=== PATIENT | female | born 1955 | race Caucasian/White ===

== ENCOUNTER 2021-10-30 15:42 | Outpatient (CLI) | payer OTHER, SELFPAY | END 2021-10-30 15:43 | disposition home or self-care (01) | PROVIDERS: PCP Internal Medicine; Visit Provider Internal Medicine | DX: E03.9 Hypothyroidism, unspecified (principal) | CPT/HCPCS: 84443 ==

== ENCOUNTER 2021-11-05 18:44 | Outpatient (CLI) | payer OTHER, SELFPAY ==
[2021-11-05 21:49] LABS: Chloride* 103 mmol/L (96-114); Sodium* 135 mmol/L (135-149)
[2021-11-05 21:50] LABS: Potassium* 4.2 mmol/L (3.6-5.1)
[2021-11-05 21:52] LABS: Carbon Dioxide* 24 mmol/L (20-32); Creatinine* 0.7 mg/dL (0.5-1.5); Estimated Glomerular Filt Rate 97 ml/min
[2021-11-05 21:53] LABS: Blood Urea Nitrogen* 13 mg/dL (7-30); Calcium* 9.8 mg/dL (8.4-10.6); Glucose* 101 mg/dL (60-115)
== END 2021-11-05 18:45 | disposition home or self-care (01) ==
LOC: KYNREF 18:44
PROVIDERS: PCP Internal Medicine; Visit Provider Nurse Practitioner Family
DX: Z51.81 Encounter for therapeutic drug level monitoring (principal)
CPT/HCPCS: 36415; 80048

== ENCOUNTER 2022-01-03 14:14 | Outpatient (CLI) | payer OTHER, SELFPAY ==
[2022-01-03 10:20] LABS: Free T4 Free Thyroxine* 1.02 ng/dL (0.70-1.85)
== END 2022-01-03 14:15 | disposition home or self-care (01) ==
PROVIDERS: PCP Internal Medicine; Visit Provider Internal Medicine
DX: E03.9 Hypothyroidism, unspecified (principal); E66.9 Obesity, unspecified; Z51.81 Encounter for therapeutic drug level monitoring
CPT/HCPCS: 84439; 84443

== ENCOUNTER 2022-08-13 09:10 | Outpatient (CLI) | payer OTHER, SELFPAY ==
--- NOTE | 2022-08-13 09:15 | CRLHL7_ITS ---
For Patients: As a result of the Cures Act, medical imaging exams and procedure reports are released immediately into your electronic medical record. You may view this report before your referring provider. If you have questions, please contact your health care provider. BILATERAL SCREENING MAMMOGRAM WITH COMPUTER-AIDED DETECTION AND TOMOSYNTHESIS TECHNIQUE: CC and MLO views were obtained. These mammographic images have been obtained using full-field digital technique. These mammographic images were interpreted with the benefit of computer-aided detection. Breast tomosynthesis was used in this interpretation. COMPARISON FILM: 07/23/21, 06/25/20, 03/04/19. FINDINGS: There are scattered areas of fibroglandular density. IMPRESSION: There is no radiographic evidence for malignancy. ASSESSMENT: BI-RADS Category 1: Negative RECOMMENDATION: Routine screening mammogram in 1 year. A lay language report of this examination will be provided to the patient. MARCO A PLATT M.D. Diagnostic Radiologist [email or web address] Transcribed: 08/13/2022, 1:[address]/Dictated by: Marco A Platt MD @ 08/13/2022 10:40:00 AM (Electronically Signed)
== END 2022-08-13 09:11 | disposition home or self-care (01) ==
PROVIDERS: PCP Internal Medicine; Visit Provider Internal Medicine
DX: Z12.31 Encounter for screening mammogram for malignant neoplasm of breast (principal)
CPT/HCPCS: 77063; 77067

== ENCOUNTER 2023-02-17 08:00 | Outpatient (CLI) | payer OTHER, SELFPAY ==
--- OUTSIDE RECORDS SUMMARY | 2023-02-23 12:59 | XMS_ITS | Encounter Summary ---
Author Name Unknown Organization [facility] Address [address] [place] [address] Care Team Providers Care Stake Driver Name Role Phone Elsewhere, Pcp Primary Care Provider Unavailabl e Reason for Visit * Reason Onset Date Comments Rx Prior Authorization 08/08/2022 Qsymia Encounter Details Date Type Department Care Team (Latest Contact Info) Description 08/08/2022 Clinical Communication Division of Endocrinology in [place], [place] [address] [place] [phone] Palma Talley P.A.-C. [address] [place] [phone] Rx Prior Authorization (Qsymia ) Social History Tobacco Use Types Packs/Day Years Used Date Smoking Tobacco: Never Smokeless Tobacco: Never Comments:one parent was a sm oker Alcohol Use Standard Drinks/Week Comments Yes 12 (1 standard drink = 0.6 oz pu re alcohol) Humiliation, Afraid, Rape, and Kick questionnair e Answer Date Recorded Within the last year, have y ou been afraid of your partner or ex-partner? No 06/21/2022 Within the last year, have y ou been humiliated or emotionally abused in other ways by your partner or ex-partner? No Within the last year, have y ou been kicked, hit, slapped, or otherwise physically hurt by your partner or ex-partner? No 06/21/2022 Within the last year, have y ou been raped or forced to have any kind of sexual activity by your partner or ex-partner? No 06/21/2022 Social Connection and Isolat ion Panel [NHANES] Answer Date Recorded In a typical week, how many times do you talk on the phone with family, friends, or neighbors? Never 06/21/2022 How often do you get togethe r with friends or relatives? Once a week 06/21/2022 How often do you attend chur ch or sikh services? More than 4 times per year 06/21/2022 Do you belong to any clubs o r organizations such as restoration groups, unions, fraternal or athletic groups, or school groups? Yes 06/21/2022 How often do you attend meet ings of the clubs or organizations you belong to? More than 4 times per year 06/21/2022 Are you , , di vorced, , never , or living with a partner? 06/21/2022 AUDIT-C Answer Date Recorded Q1: How often do you have a drink containing alcohol? 4 or more times a week 06/21/2022 Q2: How many drinks containi ng alcohol do you have on a typical day when you are drinking? 1 or 2 3 Q3: How often do you have si x or more drinks on one occasion? Never 06/21/2022 Overall Financial Resource Strain (CARDIA) Answe r Date Recorded How hard is it for you to pa y for the very basics like food, housing, medical care, and heating? Not hard at all 06/21/2022 [facility] ional [facility] - Occupational Stress Questionnaire Answer Date Recorded Do you feel stress - tense, restless, nervous, or anxious, or unable to sleep at night because your mind is troubled all the time - these days? Only a little 06/21/2022 Exercise Vital Sign Answer Date Recorde d On average, how many days pe r week do you engage in moderate to strenuous exercise (like a brisk walk)? 4 days 06/21/2022 On average, how many minutes do you engage in exercise at this level? 40 min 06/21/2022 Hunger Vital Sign Answer Date Recorded Within the past 12 months, y ou worried that your food would run out before you got the money to buy more. Never true 06/22/19 23 Within the past 12 months, t he food you bought just didn't last and you didn't have money to get more. Never true 06/21/2022 PRAPARE - Transportation Answer Date Re corded In the past 12 months, has l ack of transportation kept you from medical appointments or from getting medications? No 07/2022 In the past 12 months, has l ack of transportation kept you from meetings, work, or from getting things needed for daily living? No 06/21/2022 Housing Stability Vital Sign Answer Sherwin e Recorded In the last 12 months, was t here a time when you were not able to pay the mortgage or rent on time? No 06/21/2022 In the last 12 months, how many places have you lived? 1 06/21/2022 In the last 12 months, was t here a time when you did not have a steady place to sleep or slept in a penitentiary (including now)? No 06/21/2022 Nutrition Answer Date Recorded Nutrition: EVOO Fat Source Yes 06/21 On average, how many serving s of fruits and vegetables do you eat per day (serving size is equal to 1 cup or approximately the size of a tennis ball)? 4-5 06/21/2022 Dental Answer Date Recorded Dental: Regular Dentist Yes 08/24/19 Employment Answer Date Recorded Employment status Employed and actively working without restrictions 06/21/2022 Education Answer Date Recorded What is the highest level of school you have completed or the highest degree you have received? Doctorate 08/23/2020 Sex and Gender Information Value Date Recorded Sex Assigned at Female 01/01/2021 8:40 AM WRAP KNITTING MACHINE OPERATOR Gender Identity Female 01/01/2021 8:40 AM WRAP KNITTING MACHINE OPERATOR Sexual Orientation Straight 01/01/2021 8: 40 AM WRAP KNITTING MACHINE OPERATOR documented as of this encounter Plan of Treatment Upcoming Encounters Date Type Department Care Team (Late st Contact Info) Description 03/05/2023 11:00 AM WRAP KNITTING MACHINE OPERATOR Office Visit Division of Endocrinology in [place], [place] [address] [place] [phone] Cooper Kessler APRN, C.N.P., D.N.P. [address] [place] [address] documented as of this encounter Visit Diagnoses Not on filedocumented in this encounter Care Teams Stake Driver Relationship Specialty Start Date End Date Elsewhere, Pcp PCP - General Internal Medicine 04/16/21 documented as of this encounter
--- OUTSIDE RECORDS SUMMARY | 2023-02-23 12:59 | XMS_ITS | Encounter Summary ---
Author Name Unknown Organization [facility] Address [address] [place] [address] Care Team Providers Care Biomedical Photographer Name Role Phone Elsewhere, Pcp Primary Care Provider Unavailabl e Reason for Referral * Outpatient (Routine) - Authorized Specialty Diagnoses / Procedures Referred By Abhilash lyle Referred To Contact Endocrinology Diagnoses Obesity Body Mass Index 30-39.9 Adult Krystal Fox APRN, C.N.P. [address] [place] [phone] [facility] Referral ID Status Reason Start Date Expiration Date V isits Requested Visits Authorized [id number] Authorized 12/02/2022 12/01/2025 1 1 Reason for Visit * Outpatient (Routine) - Closed Specialty Diagnoses / Procedures Referred By Abhilash lyle Referred To Contact Endocrinology Diagnoses Obesity Body Mass Index 30-39.9 Adult Hypothyroidism Primary Palma Talley P.A.-C. [address] [place] [phone] [facility] Referral ID Status Reason Start Date Expiration Date Visits Re quested Visits Authorized [id number] Closed 06/25/2022 06/24/2025 1 1 Encounter Details Date Type Department Care Team (Late st Contact Info) Description 12/02/2022 3:00 PM CDT Telemedicine Division of Endocrinology in [place], [place] [address] [place] [phone] Krystal Fox APRN, C.N.P. [address] [place] [phone] Obesity Body Mass Index 30-39.9 Adult (Primary Dx); Hypothyroidism Primary Social History Tobacco Use Types Packs/Day Years [...] 06/21/2022 How often do you attend chur or latter-day services? More than 4 times per year 06/21/2022 Do you belong to any clubs o r organizations such as samaritan groups, unions, fraternal or athletic groups, or [...] and heating? Not hard at all 06/21/2022 [facility] of Occupat ional Health - Occupational Stress [...] place to sleep or slept in a chcf (including now)? No 06/21/2022 Nutrition Answer Date [...] Sex Assigned at Female 01/01/2021 8:40 AM PMO BUSINESS ANALYST Gender Identity Female 01/01/2021 8:40 AM PMO BUSINESS ANALYST Sexual Orientation Straight 01/01/2021 8: 40 AM PMO BUSINESS ANALYST documented as of this encounter Last Filed Vital Signs Vital Sign Reading Time Taken Comments Blood Pressure - - Pulse - - Temperature - - Respiratory Rate - - Oxygen Saturation - - Inhaled Oxygen Concentration - - Weight 86.5 kg (190 lb 11.2 oz) 12/02/2022 3:05 PM CDT self reported Height - - Body Mass Index 30.21 04/01/2022 2:04 PM PMO BUSINESS ANALYST documented in this encounter Progress Notes * Krystal Fox, UNA, C.N.P. - 12/02/2022 3:00 PM CDT SUBJECTIVE Video visit CHIEF COMPLAINT Weight management follow-up visit HISTORY OF PRESENT ILLNESS Kanika returns today for a follow-up appointment for ongoing evaluation and assistance with weightloss while continuing to pursue efforts at weight loss. She was last seen by DANI Cosme, on 06/25/2022. 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 Her snack consists of either an apple or a handful of almonds. She continues to experience appetite suppression with the Qsymia. Current activity: She was active with walking and gardening over this summer. She had set a goal to restart lap swimming, but due to a busy schedule this fall has not yet started this. Recent weight trend is as follows: Most recent weight: 12/02/22 86.5 kg 06/25/22 86.7 kg 04/01/22 88.4 kg 01/06/22 90.4 kg 10/07/21 90.2 kg Obesity related comorbidities include: arthritis. Current medications for weight management: Qsymia 7.5-46 mg Weight loss medication side effects: Dry mouth which she has been managing with Biotene Pertinent review of systems otherwise grossly negative. The following portions of the patient's history were reviewed and updated as appropriate: visit questionnaire, allergies, current medications, family history, medical history, social history, surgical history, and problem list. OBJECTIVE Wt 86.5 kg Comment: self reported BMI 30.21 kg/m?? Physical exam: General: Pleasant, cooperative and in no acute distress. Mental: Alert, oriented to person, place, and time. Displays appropriate mood and affect. ASSESSMENT / PLAN #1 Class 1 obesity, BMI 30.21 Since initiation of Qsymia in August 2020, she has been successful with a 63 lb weight loss. She is currently at a weight loss plateau, but feels as though her eating has not changed and she continues to experience appetite suppression with a Qsymia. She plans on laps swimming for exercise as she enjoys this and has done this previously. She is hoping to lose an additional 20 lb if possible. She would like to stay at current doses Qsymia, but consideration could be given to increasing to the nextdose up if she starts to struggle with hunger while increasing exercise. The Qsymia prescription is up-to-date. I recommend follow-up in 3 months to assess weight loss progress. This will be an in person visit. Visit conducted via real-time audio/video technology by Krystal Fox APRN, C.N.P. in [facility] to the patient in Patient's Home. I personally spent a total of 20 minutes performing a review of the record and/or discussing with the patient/caregiver as described above. documented in this encounter Plan of Treatment Upcoming Encounters Date Type Department Care Team (Late st Contact Info) Description 03/05/2023 11:00 AM PMO BUSINESS ANALYST Office Visit Division of Endocrinology in [place], [place] [address] [place] [phone] Cooper Kessler APRN, C.N.P., D.N.P. [address] [place] [phone] Scheduled Referrals Name Type Priority Associated Diagnoses Order Schedule Endocrinology office visit (clinic) Outpatient Referral Routine Obesity Body Mass Index 30-39.9 Adult Expected: 03/02/2023 (Approximate), Expires: 03/04/2024 documented as of this encounter Visit Diagnoses Diagnosis Obesity Body Mass Index 30-39.9 Adult- Primary Hypothyroidism Primary documented in this encounter Care Teams Biomedical Photographer Relationship Specialty Start Date End Date Elsewhere, Pcp PCP - General Internal Medicine 04/16/21 documented as of this encounter
--- OUTSIDE RECORDS SUMMARY | 2023-02-23 12:59 | XMS_ITS | Encounter Summary ---
Author Name Unknown Organization [facility] Address [address] [place] [address] Care Team Providers Care Ice Cream Dipper Name Role Phone Elsewhere, Pcp Primary Care Provider Unavailabl e Encounter Details Date Type Department Care Team (Latest Contact Info) Description 06/24/2022 3:00 PM CDT Clinical Communication Virtual Review in [place], [place] [address] [place] [address] Social History Tobacco Use Types Packs/Day Years Used Date Smoking Tobacco: Never Smokeless Tobacco: Never Tobacco Cessation:Counseling Given: Not Answered Comments:one parent was a smoker Alcohol Use Standard Drinks/Week Comments Yes 12 [...] week 06/21/2022 How often do you attend [facility] or adventist services? More than 4 times per year 06/21/2022 Do you belong to any clubs o r organizations such as christian groups, unions, fraternal or athletic groups, or [...] and heating? Not hard at all 06/21/2022 [facility] of Occupat ional Health - Occupational Stress [...] place to sleep or slept in a group home (including now)? No 06/21/2022 Nutrition Answer Date [...] Sex Assigned at Female 01/01/2021 8:40 AM FUR BUYER Gender Identity Female 01/01/2021 8:40 AM FUR BUYER Sexual Orientation Straight 01/01/2021 8: 40 AM FUR BUYER documented as of this encounter Plan of Treatment Upcoming Encounters Date Type Department Care Team (Late st Contact Info) Description 03/05/2023 11:00 AM FUR BUYER Office Visit Division of Endocrinology in [place], [place] 200 [place] [phone] Cooper Kessler APRN, C.N.P., D.N.P. [address] [place] [phone] documented as of this encounter Visit Diagnoses Not on filedocumented in this encounter Care Teams Ice Cream Dipper Relationship Specialty Start Date End Date Elsewhere, Pcp PCP - General Internal Medicine 04/16/21 documented as of this encounter
--- OUTSIDE RECORDS SUMMARY | 2023-02-23 12:59 | XMS_ITS | Encounter Summary ---
Author Name Unknown Organization [facility] Address [address] [place] [address] Care Team Providers Care Pastry Baker Name Role Phone Elsewhere, Pcp Primary Care Provider Unavailabl e Reason for Referral * Outpatient (Routine) - Closed Specialty Diagnoses / Procedures Referred By Abhilash lyle Referred To Contact Endocrinology Diagnoses Obesity Body Mass Index 30-39.9 Adult Hypothyroidism Primary Palma Talley P.A.-C. [address] [place] [phone] [facility] Referral ID Status Reason Start Date Expiration Date Visits Re quested Visits Authorized [id number] Closed 04/01/2022 03/31/2025 1 1 R HELPER Reason for Visit * Outpatient (Routine) - Closed Specialty Diagnoses / Procedures Referred By Abhilash lyle Referred To Contact Endocrinology Palma Talley P.A.-C. [address] [place] [phone] [facility] Referral ID Status Reason Start Date Expiration Date Visits Re quested Visits Authorized [id number] Closed 01/06/2022 01/05/2025 1 1 Encounter Details Date Type Department Care Team (Late st Contact Info) Description 04/01/2022 2:00 PM TUBER HELPER Office Visit Division of Endocrinology in [place], [place] [address] [place] [phone] Palma Talley P.A.-C. [address] [place] [phone] Obesity Body Mass Index 30-39.9 Adult (Primary [...] afraid of your partner or ex-partner? No 10/04/2021 Within the last year, have y ou been humiliated or emotionally abused in other ways by your partner or ex-partner? No Within the last year, have y ou been kicked, hit, slapped, or otherwise physically hurt by your partner or ex-partner? No 10/04/2021 Within the last year, have y ou been raped or forced to have any kind of sexual activity by your partner or ex-partner? No 10/04/2021 Social Connection and Isolat ion Panel [NHANES] Answer Date Recorded In a typical week, how many times do you talk on the phone with family, friends, or neighbors? Never 10/04/2021 How often do you get togethe r with friends or relatives? Once a week 10/04/2021 How often do you attend chur ch or mosque services? More than 4 times per year 10/04/2021 Do you belong to any clubs o r organizations such as quaker groups, unions, fraternal or athletic groups, or school groups? Yes 10/04/2021 How often do you attend meet ings of the clubs or organizations you belong to? More than 4 times per year 10/04/2021 Are you , , di vorced, , never , or living with a partner? 10/04/2021 AUDIT-C Answer Date Recorded Q1: How often do you have a drink containing alcohol? 4 or more times a week 10/04/2021 Q2: How many drinks containi ng alcohol do you have on a typical day when you are drinking? 1 or 2 2 Q3: How often do you have si x or more drinks on one occasion? Never 10/04/2021 Overall Financial Resource Strain (CARDIA) Answe r Date Recorded How hard is it for you to pa y for the very basics like food, housing, medical care, and heating? Not hard at all 10/04/2021 [facility]at ional [facility] - Occupational Stress Questionnaire Answer Date Recorded Do you feel stress - tense, restless, nervous, or anxious, or unable to sleep at night because your mind is troubled all the time - these days? Only a little 10/04/2021 Exercise Vital Sign Answer Date Recorde d On average, how many days pe r week do you engage in moderate to strenuous exercise (like a brisk walk)? 7 days 10/04/2021 On average, how many minutes do you engage in exercise at this level? 40 min 10/04/2021 Hunger Vital Sign Answer Date Recorded Within the past 12 months, y ou worried that your food would run out before you got the money to buy more. Never true 10/05/19 22 Within the past 12 months, t he food you bought just didn't last and you didn't have money to get more. Never true 10/04/2021 PRAPARE - Transportation Answer Date Re corded In the past 12 months, has l ack of transportation kept you from medical appointments or from getting medications? No 09/16 In the past 12 months, has l ack of transportation kept you from meetings, work, or from getting things needed for daily living? No 10/04/2021 Housing Stability Vital Sign Answer Sherwin e Recorded In the last 12 months, was t here a time when you were not able to pay the mortgage or rent on time? No 10/04/2021 In the last 12 months, how many places have you lived? 1 10/04/2021 In the last 12 months, was t here a time when you did not have a steady place to sleep or slept in a jail (including now)? No 10/04/2021 Nutrition Answer Date Recorded Nutrition: EVOO Fat Source Yes 10/04 On average, how many serving s of fruits and vegetables do you eat per day (serving size is equal to 1 cup or approximately the size of a tennis ball)? 4-5 10/04/2021 Dental Answer Date Recorded Dental: Regular Dentist Yes 08/24/19 21 Employment Answer Date Recorded Employment status Employed and actively working without restrictions 10/04/2021 Education Answer Date Recorded What is the highest level of school you have completed or the highest degree you have received? Doctorate 08/23/2020 Sex and Gender Information Value Date Recorded Sex Assigned at Female 01/01/2021 8:40 AM TUBER HELPER Gender Identity Female 01/01/2021 8:40 AM TUBER HELPER Sexual Orientation Straight 01/01/2021 8: 40 AM TUBER HELPER documented as of this encounter Last Filed Vital Signs Vital Sign Reading Time Taken Comments Blood Pressure 131/83 04/01/2022 2:04 PM TUBER HELPER Pulse 74 04/01/2022 2:04 PM TUBER HELPER Temperature - - Respiratory Rate - - Oxygen Saturation - - Inhaled Oxygen Concentration - - Weight 88.4 kg (194 lb 14.2 oz) 04/01/2022 2:04 PM TUBER HELPER Height 169.2 cm (5' 6.61) 04/01/2022 2:04 PM CS T Body Mass Index 30.88 04/01/2022 2:04 PM TUBER HELPER documented in this encounter Progress Notes * Palma Talley P.A.-C. - 04/01/2022 2:00 PM CST SUBJECTIVE History of present illness: Kanika [facility] to [facility] for a follow-up appointment for ongoing evaluation and assistance with weight loss while continuing to pursue efforts at weight loss. She continues to do well with appetite control and calorie restriction. She notes that she had better control over the holidays. She was hopeful that she would loose more, but on review her weight loss is within expected limits for the interval. She does not report the heart fluttering in the interval. Recent weight trend is as follows: Most recent weight: 04/01/22 88.4 kg 01/06/22 90.4 kg 10/07/21 90.2 kg 04/16/21 96.2 kg 01/08/21 104 kg Obesity related comorbidities include prediabetes (resolved), osteoarthritis . Current medications for weight management: Qsymia 7.5-46 mg Previous medications used for weight management: none Medication adverse effects: Dry mouth Positive effects of the medication include: Good appetite supression; allows her to address portion control, or snacking Current physical activity: Walking Pertinent review of systems otherwise grossly negative. The following portions of the patient's history were reviewed and updated as appropriate: visit questionnaire, allergies, current medications, family history, medical history, social history, surgical history, and problem list. OBJECTIVE VITAL SIGNS Vitals: 04/01/22 1404 BP: 131/83 Pulse: 74 ASSESSMENT / PLAN #1 Obesity Body Mass Index 30-39.9 Adult #2 Hypothyroidism Primary Other orders - Endocrinology office visit (clinic) - Endocrinology office visit (clinic); Future; Expected date: 06/29/2022 Medication management: Continue Qsymia 7.5-46 mg Goals going forward: Continue to increase physical activity now that she is feeling better. Follow up: Patient to follow up in 3 months with myself. Weight Loss Medication Management Guidelines: For patients taking medications for weight loss, if the patient cannot tolerate the medication due to side effects including gastrointestinal, mood, or other side effects, they can stop the medication. If the patient would like to start a new medication, restart an old medication, or change to a different medication, please schedule the patient for first available follow up appointment, unless noted in the plan that the patient is OK to start a medication at this time. The patient can otherwise wait until their regularly scheduled follow up appointment. For issues with cost of weight loss medications, patients need to look at the contact lens flashing puncher's website for decreased copayment coupons, check with their insurance company to check coverage, and check different pharmacies for dominguez comparison prior to a new prescription. Weight loss medications are often not covered by insurance companies. Injectable medications like GLP1 agonists are being used on-label and off-label for weight management. If the patient gets a prescription for one of these medications and is later not covered by insurance, they again need to check with their insurance company to find out which medication in this class is covered, if any, prior to prescribing the next option. The patient can also ask their insurance company and their pharmacy for cost estimates to see if that cost would be acceptable to them. Current costs of injectable weight loss medications could range anywhere from $0 to $2000 per month. If patient requests refills of medications, please check if refills have already been ordered. R HELPER documented in this encounter Plan of Treatment Upcoming Encounters Date Type Department Care Team (Late st Contact Info) Description 03/05/2023 11:00 AM TUBER HELPER Office Visit Division of Endocrinology in [place], [place] [address] [place] [phone] Cooper Kessler APRN, C.N.P., D.N.P. [address] [place] [phone] Scheduled Referrals Name Type Priority Associated Diagnoses Order Schedule Endocrinology office visit (clinic) Outpatient Referral Routine Obesity Body Mass Index 30-39.9 Adult Hypothyroidism Primary Expected: 06/29/2022 (Approximate), Expires: 06/30/2023 documented as of this encounter Visit Diagnoses Diagnosis Obesity Body Mass Index 30-39.9 Adult- Primary Hypothyroidism Primary documented in this encounter Care Teams Pastry Baker Relationship Specialty Start Date End Date Elsewhere, Pcp PCP - General Internal Medicine 04/16/21 documented as of this encounter
--- OUTSIDE RECORDS SUMMARY | 2023-02-23 12:59 | XMS_ITS | Encounter Summary ---
Author Name Unknown Organization [facility] Address [address] [place] [address] Care Team Providers Care Marketing Professor Name Role Phone Elsewhere, Pcp Primary Care Provider Unavailabl e Reason for Visit * Reason Onset Date Comments Pre-visit Intake 03/31/2022 Encounter Details Date Type Department Care Team (Latest Contact Info) Description 03/31/2022 4:30 PM BOAT HOIST OPERATOR Clinical Communication Virtual Review in [place], [place] [address] [place], [place] [phone] Pre-visit Intake Social History Tobacco Use Types Packs/Day Years [...] often do you attend chur ch or judaism services? More than 4 times per year 10/04/2021 Do you belong to any clubs o r organizations such as amish groups, unions, fraternal or athletic groups, or [...] and heating? Not hard at all 10/04/2021 [facility] Occupat ional Health - Occupational [...] place to sleep or slept in a alf (including now)? No 10/04/2021 Nutrition Answer Date [...] Sex Assigned at Female 01/01/2021 8:40 AM BOAT HOIST OPERATOR Gender Identity Female 01/01/2021 8:40 AM BOAT HOIST OPERATOR Sexual Orientation Straight 01/01/2021 8: 40 AM BOAT HOIST OPERATOR documented as of this encounter Plan of Treatment Upcoming Encounters Date Type Department Care Team (Late st Contact Info) Description 03/05/2023 11:00 AM BOAT HOIST OPERATOR Office Visit Division of Endocrinology in [place], [place] [address] [place] [phone] Cooper Kessler APRN, C.N.P., D.N.P. [address] [place] [phone] documented as of this encounter Visit Diagnoses Not on filedocumented in this encounter Care Teams Marketing Professor Relationship Specialty Start Date End Date Elsewhere, Pcp PCP - General Internal Medicine 04/16/21 documented as of this encounter
--- OUTSIDE RECORDS SUMMARY | 2023-02-23 12:59 | XMS_ITS | Encounter Summary ---
Author Name Unknown Organization [facility] Address [address] [place] [address] Care Team Providers Care News Operations Manager Name Role Phone Elsewhere, Pcp Primary Care Provider Unavailabl e Encounter Details Date Type Department Care Team ([facility] st Contact Info) Description 08/07/2022 Orders Only Division of Endocrinology in [place], [place] [address] [place] [phone] Palma Talley P.A.-C. [address] [place] [phone] Social History Tobacco Use Types Packs/Day Years [...] How often do you attend chur or restorationist services? More than 4 times per year [...] and heating? Not hard at all 06/21/2022 [facility] [place] of Occupat ional Health - Occupational Stress [...] place to sleep or slept in a detention (including now)? No 06/21/2022 Nutrition Answer Date [...] Sex Assigned at Female 01/01/2021 8:40 AM TIN WHIZ MACHINE OPERATOR Gender Identity Female 01/01/2021 8:40 AM TIN WHIZ MACHINE OPERATOR Sexual Orientation Straight 01/01/2021 8: 40 AM TIN WHIZ MACHINE OPERATOR documented as of this encounter Plan of Treatment Upcoming Encounters Date Type Department Care Team (Late st Contact Info) Description 03/05/2023 11:00 AM TIN WHIZ MACHINE OPERATOR Office Visit Division of Endocrinology in [place], [place] [address] [place] [phone] Cooper Kessler APRN, C.N.P., D.N.P. [address] [place] [address] documented as of this encounter Visit Diagnoses Not on filedocumented in this encounter Care Teams News Operations Manager Relationship Specialty Start Date End Date Elsewhere, Pcp PCP - General Internal Medicine 04/16/21 documented as of this encounter
--- OUTSIDE RECORDS SUMMARY | 2023-02-23 12:59 | XMS_ITS | Clinical Summary ---
Author Name Unknown Organization [facility] Address [address] [place] [address] Care Team Providers Care Tar Heater Name Role Phone Elsewhere, Pcp Primary Care Provider Unavailabl e Source Comments Patient records contain information from all sites at [facility]. For routine questions regarding patient records, call [phone] during business hours, M-F 8:00 AM - 5:00 PM Central Time. Record requests for emergency care only can be directed to [phone] at any time.[facility] Allergies Active Allergy Reactions Criticality Noted Date Comments Cat Dander Other (see comments) 08/24/2020 Runny nose Grass Pollen Headache,Wheezing (R eselect Reaction) 08/24/2020 Mold Other (see comments) 08/24/2020 Runny nose Tree And Shrub Pollen Headache,Wheezing (Reselect Reaction) 08/24/2020 Medications Medication Sig Dispensed Refills Start Date End Date Status albuterol 90 mcg/actuation inhaler Inhale 2-4 puffs every 4 (four) hours as needed. 0 04/24/2010 Active cetirizine (ZyrTEC) 10 mg tablet Take 10 mg by mouth as needed. 0 10/27/2006 Active fluticasone propionate (FLONASE) 50 mcg/actuation nasal spray INHALE 2 SPRAYS INTO EACH NOSTRIL DAILY 0 09/08/2013 Active fluticasone propionate (FLOVENT HFA) 110 mcg/actuation inhaler Inhale 2 puffs 2 (two) times a day. 0 08/02/2012 Active levothyroxine (SYNTHROID, LEVOTHROID) 150 mcg tablet Take 150 mcg by mouth as directed. Take one tablet daily Thursday through Thursday and take 0.5 tablet Thursday and Thursday (PCP to recheck thyroid levels) 0 08/02/2012 Active montelukast (SINGULAIR) 10 mg tablet Take 10 mg by mouth at bedtime. 0 05/25/2020 Active phentermine-topirama te (Qsymia) 7.5-46 mg capsule, ER multiphase 24 hr ext release capsuleIndications:O besity Body Mass Index 30-39.9 Adult Take 1 capsule by mouth daily. 90 capsule 1 11/06/2022 Active Active Problems Problem Noted Date Diagnosed Date Obesity Body Mass Index 30-39.9 Adult 08/27/2020 Hypothyroidism Primary 08/27/2020 Osteoarthritis 08/27/2020 Asthma Mild Intermittent 08/27/2020 Asthma Encounters Date Type Department Care Team Description 12/30/2022 Clinical Communication Division of Endocrinology in [place], [place] [address] [place] [phone] Krystal Fox APRN, C.N.P. Follow-up Orders 12/02/2022 3:00 PM CDT Telemedicine Division of Endocrinology in [place], [place] [address] [place] [phone] Krystal Fox APRN, C.N.P. Obesity Body Mass Index 30-39.9 Adult (Primary Dx); Hypothyroidism Primary from Last 3 Months Family History Medical History Relation Name Comments Arthritis Brother Abdirahman Turner Hyperlipidemia Brother Abdirahman Turner Hypertension Brother Abdirahman Turner Prostate cancer Brother Abdirahman Turner diagnosed i n his 60s Arthritis Father Natan Turner Hyperlipidemia Father Natan Turner Hypertension Father Natan Turner Prostate cancer Father Natan Turner diagnosed in his 70s Stroke Father Natan Jourdanjohn Transient ischemic attack Father Natan Solimanjohn Diabetes Maternal Grandfather Karma Nelsontting Arthritis Maternal Grandmother Mayra Oetting Colon cancer Maternal Grandmother Mayra Oetting diagno sed in her 80s Diabetes Maternal Grandmother Mayra Oetting Obesity Maternal Grandmother Mayra Oetting Colon polyps Mother Florina Huener Hyperlipidemia Mother Florina Huener Hypertension Mother Florina Hujohn Breast cancer Mother's Sister 1 Turner phelps agnosed in her 80s Breast cancer Mother's Sister 2 Dayana Medeiros diagnose d in her 50s Diabetes Paternal Grandfather Paxton Huener Obesity Paternal Grandfather Paxton Turner Arthritis Sister Terri Antonio Breast cancer Sister Terri Antonio diagnosis & lumpectomy 2020 Colon polyps Sister Terri Antonio Hyperlipidemia Sister Terri Antonio Hypertension Sister Terri Antonio Thyroid disease Sister Terri Antonio Hypothyroi dism Relation Name Status Comments Brother Abdirahman Turner Father Natan uTrner Maternal Grandfather Karma Turpin Maternal Grandmother Mayra Turpin Mother Florina Turner Mother's Sister 1 Turner Arshad Mother's Sister 2 Dayana Medeiros Paternal Grandfather Paxton Turner Sister Terri Antonio Social History Tobacco Use Types Packs/Day Years [...] often do you attend chur ch or advent services? More than 4 times per year 06/21/2022 Do you belong to any clubs o r organizations such as worship groups, unions, fraternal or athletic groups, or [...] and heating? Not hard at all 06/21/2022 [facility] Occupat ional Health - Occupational Stress [...] place to sleep or slept in a fpc (including now)? No 06/21/2022 Nutrition Answer Date [...] Sex Assigned at Female 01/01/2021 8:40 AM COMMUNITY AIDE Gender Identity Female 01/01/2021 8:40 AM COMMUNITY AIDE Sexual Orientation Straight 01/01/2021 8: 40 AM COMMUNITY AIDE Last Filed Vital Signs Vital Sign Reading Time Taken Comments Blood Pressure 131/83 04/01/2022 2:04 PM COMMUNITY AIDE Pulse 74 04/01/2022 2:04 PM COMMUNITY AIDE Temperature - - Respiratory Rate - - Oxygen Saturation - - Inhaled Oxygen Concentration - - Weight 86.5 kg (190 lb 11.2 oz) 12/02/2022 3:05 PM CDT self reported Height 169.2 cm (5' 6.61) 04/01/2022 2 :04 PM COMMUNITY AIDE Body Mass Index 30.21 04/01/2022 2:04 PM COMMUNITY AIDE Plan of Treatment Upcoming Encounters Date Type Department Care Team (Late st Contact Info) Description 03/05/2023 11:00 AM COMMUNITY AIDE Office Visit Division of Endocrinology in [place], [place] [address] [place] [address] Cooper Kessler APRN, C.N.P., D.N.P. 200 [place] [phone] Health Maintenance Due Date Last Done Comments Bone Density Scan (Osteoporo sis Screen) 1957 CT Colonography 1957 Cologuard 1957 Colonoscopy 1957 Colorectal Cancer Screening 1957 FIT 1957 Fasting Glucose for Diabetes Screening 1957 Hepatitis C Screening 1955 Mammogram 1957 Thyroid Stimulating Hormone (TSH) test for thyroid function 1957 Cervical Cancer Screening 02/01/2021 02/01/2018 Depression Screening (Annual PHQ-2) 02/16/2023 Fall Risk Screen (Annual) 02/16/2023 DTaP,Tdap,and Td Vaccines (3 - Td or Tdap) 02/19/2031 02/19/2021, 07/30/2010, 12/23/2002 Zoster Vaccines Completed 08/21/2018, 05/13/2018 Influenza Vaccine Completed 01/29/2023, , 12/27/2020, Additional history exists COVID-19 Vaccine Completed 02/04/2023, , 01/17/2022, Additional history exists Pneumococcal vaccine (65+ years) Completed 02/13/20, 01/05/2018 Medical Devices Implanted Type Area String Studies Director Device Identifier Shelf Expiration Date Model / Serial / Lot Hardware E.G. Pins/Screws/Ro ds Hardware e.g. pins/screws/ rods Bilatera l: Foot Description:Hardware Knee Implant-06/17/19 Implanted:05/0 02/2017 (Quantity not on file) Knee Implant Left: Knee Ocular (Eye) Implant Ocular (Eye) Implant Bilatera l: Eye Description:Completed 1 week apart - February 2021 Care Teams Tar Heater Relationship Specialty Start Date End Date Elsewhere, Pcp PCP - General Internal Medicine 04/16/21
--- OUTSIDE RECORDS SUMMARY | 2023-02-23 12:59 | XMS_ITS | Encounter Summary ---
Author Name Unknown Organization [facility] Address [address] [place] [address] Care Team Providers Care Piercer Name Role Phone Elsewhere, Pcp Primary Care Provider Unavailabl e Reason for Referral * Outpatient (Routine) - Closed Specialty Diagnoses / Procedures Referred By Abhilash lyle Referred To Contact Endocrinology Diagnoses Obesity Body Mass Index 30-39.9 Adult Hypothyroidism Primary Palma Talley P.A.-C. [address] [place] [phone] [facility] Referral ID Status Reason Start Date Expiration Date Visits Re quested Visits Authorized [id number] Closed 06/25/2022 06/24/2025 1 1 Reason for Visit * Outpatient (Routine) - Closed Specialty Diagnoses / Procedures Referred By Abhilash lyle Referred To Contact Endocrinology Diagnoses Obesity Body Mass Index 30-39.9 Adult Hypothyroidism Primary Palma Talley P.A.-C. [address] [place] [phone] [facility] Referral ID Status Reason Start Date Expiration Date Visits Re quested Visits Authorized [id number] Closed 04/01/2022 03/31/2025 1 1 Encounter Details Date Type Department Care Team ([facility] st Contact Info) Description 06/25/2022 2:00 PM CDT Telemedicine Division of Endocrinology in [place], [place] [address] [place] [phone] Palma Talley P.A.-C. [address] [place] [phone] Obesity Body Mass Index 30-39.9 Adult; Hypothyroidism Primary Social History Tobacco Use Types Packs/Day Years Used Date Smoking Tobacco: Never Smokeless Tobacco: Never Comments:one parent was a sm juliana Alcohol Use Standard Drinks/Week Comments Yes 12 [...] often do you attend chur ch or mormon services? More than 4 times per year 06/21/2022 Do you belong to any clubs o r organizations such as baptism groups, unions, fraternal or athletic groups, or [...] and heating? Not hard at all 06/21/2022 [facility] [place] of Occupat ional Health - Occupational Stress [...] place to sleep or slept in a correction (including now)? No 06/21/2022 Nutrition Answer Date Recorded Nutrition: EVOO Fat Source Yes 06/21 On average, how many serving s of fruits and vegetables do you eat per day (serving size is equal to 1 cup or approximately the size of a tennis ball)? 4-5 06/21/2022 Dental Answer Date Recorded Dental: Regular Dentist Yes 07/08/20 21 Employment Answer Date Recorded Employment status Employed and actively working without restrictions 06/21/2022 Education Answer Date Recorded What is the highest level of school you have completed or the highest degree you have received? Doctorate 08/23/2020 Sex and Gender Information Value Date Recorded Sex Assigned at Female 01/01/2021 8:40 AM CHECKOUT OPERATOR Gender Identity Female 01/01/2021 8:40 AM CHECKOUT OPERATOR Sexual Orientation Straight 01/01/2021 8: 40 AM CHECKOUT OPERATOR documented as of this encounter Last Filed Vital Signs Vital Sign Reading Time Taken Comments Blood Pressure - - Pulse - - Temperature - - Respiratory Rate - - Oxygen Saturation - - Inhaled Oxygen Concentration - - Weight 86.7 kg (191 lb 1.6 oz) 06/25/2022 2:26 P M CDT Height - - Body Mass Index 30.28 04/01/2022 2:04 PM CHECKOUT OPERATOR documented in this encounter Progress Notes * Palma Talley P.A.-C. - 06/25/2022 2:00 PM CDT SUBJECTIVE History of present illness: Kanika [facility] for a follow-up appointment for ongoing evaluation and assistance with weight loss while continuing to pursue efforts at weight loss. Today's visit was completed with audiovisual equipment virtually from provider's office to patient's home due to the COVID 19 pandemic. Patient consented to this service. Losing weight slowly. Has lot's of events and has been eating off diet lately but hasn't felt that she was going without. Hasn't been able to start swimming yet because of scheduling. The kicking motion can cause issues with her ankle. Has been walking as well! Still has a goal of losing about 20 lbs. Using biotene for dry mouth. Recent weight trend is as follows: Most recent weight: 06/25/22 86.7 kg 04/01/22 88.4 kg 01/06/22 90.4 kg 10/07/21 90.2 kg 04/16/21 96.2 kg Obesity related comorbidities include arthritis. Current medications for weight management: Qsymia 7.5-46 mg Pertinent review of systems otherwise grossly negative. The following portions of the patient's history were reviewed and updated as appropriate: visit questionnaire, allergies, current medications, family history, medical history, social history, surgical history, and problem list. OBJECTIVE VITAL SIGNS There were no vitals filed for this visit. General: well appearing female in no acute distress ASSESSMENT / PLAN #1 Obesity Body Mass Index 30-39.9 Adult #2 Hypothyroidism Primary Other orders - Endocrinology office visit (clinic) - Endocrinology office visit (clinic); Future; Expected date: 09/25/2022 Medication management: Continue on current dose of Qsymia and she will increase her exercise. Follow up: Patient to follow up in 3 months with myself or a bariatric nutrition [place]. Weight Loss Medication Management Guidelines: For patients [...] medications, patients need to look at the application systems engineer's website for decreased copayment coupons, check with [...] check if refills have already been ordered. documented in this encounter Plan of Treatment Upcoming Encounters Date Type Department Care Team (Late st Contact Info) Description 03/05/2023 11:00 AM CHECKOUT OPERATOR Office Visit Division of Endocrinology in [place], [place] [address] [place] [address] Cooper Kessler APRN, C.N.P., D.N.P. [address] [place] [address] Scheduled Referrals Name Type Priority Associated Diagnoses Order Schedule Endocrinology office visit (clinic) Outpatient Referral Routine Obesity Body Mass Index 30-39.9 Adult Hypothyroidism Primary Expected: 09/25/2022 (Approximate), Expires: 09/26/2023 documented as of this encounter Visit Diagnoses Diagnosis Obesity Body Mass Index 30-39.9 Adult Hypothyroidism Primary documented in this encounter Care Teams Piercer Relationship Specialty Start Date End Date Elsewhere, Pcp PCP - General Internal Medicine 04/16/21 documented as of this encounter
--- OUTSIDE RECORDS SUMMARY | 2023-02-23 12:59 | XMS_ITS | Encounter Summary ---
Author Name Unknown Organization [facility] Address [address] [place] [address] Care Team Providers Care Custom Marine Canvas Fabricator Name Role Phone Elsewhere, Pcp Primary Care Provider Unavailabl e Encounter Details Date Type Department Care Team (Latest Contact Info) Description 06/17/2022 3:00 PM CDT Clinical Communication Virtual Review in [place], [place] [address] [place] [address] Canceled (Patient: Request) Social History Tobacco Use Types Packs/Day Years [...] week 06/21/2022 How often do you attend [facility] or shinto services? More than 4 times per year 06/21/2022 Do you belong to any clubs o r organizations such as oriental orthodox groups, unions, fraternal or athletic groups, or [...] and heating? Not hard at all 06/21/2022 [facility] of Occupat ional Health - Occupational [...] place to sleep or slept in a long term (including now)? No 06/21/2022 Nutrition Answer Date [...] Sex Assigned at Female 01/01/2021 8:40 AM MANAGER INSTALLATION Gender Identity Female 01/01/2021 8:40 AM MANAGER INSTALLATION Sexual Orientation Straight 01/01/2021 8: 40 AM MANAGER INSTALLATION documented as of this encounter Plan of Treatment Upcoming Encounters Date Type Department Care Team (Late st Contact Info) Description 03/05/2023 11:00 AM MANAGER INSTALLATION Office Visit Division of Endocrinology in [place], [place] [address] [place] [address] Cooper Kessler APRN, C.N.P., D.N.P. [address] [place] [address] documented as of this encounter Visit Diagnoses Not on filedocumented in this encounter Care Teams Custom Marine Canvas Fabricator Relationship Specialty Start Date End Date Elsewhere, Pcp PCP - General Internal Medicine 04/16/21 documented as of this encounter
--- OUTSIDE RECORDS SUMMARY | 2023-02-23 12:59 | XMS_ITS | Encounter Summary ---
Author Name Unknown Organization [facility] Address [address] [place] [address] Care Team Providers Care Preschool Principal Name Role Phone Elsewhere, Pcp Primary Care Provider Unavailabl e Encounter Details Date Type Department Care Team ([facility] st Contact Info) Description 11/06/2022 Orders Only Division of Endocrinology in [place], [place] [address] [place] [phone] Krystal Fox APRN, C.N.P. [address] [place] [phone] Social History Tobacco Use Types Packs/Day Years [...] any clubs o r organizations such as gnosticist groups, unions, fraternal or athletic groups, or [...] and heating? Not hard at all 06/21/2022 [facility] [place] of Occupat ional Health - Occupational Stress [...] medical appointments or from getting medications? No 05/0 07/2022 In the past 12 months, has [...] Sex Assigned at Female 01/01/2021 8:40 AM PUBLIC POLICY MANAGER Gender Identity Female 01/01/2021 8:40 AM PUBLIC POLICY MANAGER Sexual Orientation Straight 01/01/2021 8: 40 AM PUBLIC POLICY MANAGER documented as of this encounter Plan of Treatment Upcoming Encounters Date Type Department Care Team (Late st Contact Info) Description 03/05/2023 11:00 AM PUBLIC POLICY MANAGER Office Visit Division of Endocrinology in [place], [place] [address] [place] [address] Cooper Kessler APRN, C.N.P., D.N.P. [address] [place] [address] documented as of this encounter Visit Diagnoses Not on filedocumented in this encounter Care Teams Preschool Principal Relationship Specialty Start Date End Date Elsewhere, Pcp PCP - General Internal Medicine 04/16/21 documented as of this encounter
--- OUTSIDE RECORDS SUMMARY | 2023-02-23 12:59 | XMS_ITS ---
Author Name Unknown Organization [facility] Address [address] [place] [address] Care Team Providers Care Autographer Name Role Phone Unavailable Unavailable Unavailable Surgery Details Not on file Complications Check Surgery Details section. Procedure Estimated Blood Loss Check Surgery Details section. Procedure Findings Check Surgery Details section. Procedure Specimens Taken Check Surgery Details section.
--- OUTSIDE RECORDS SUMMARY | 2023-02-23 12:59 | XMS_ITS | Encounter Summary ---
Author Name Unknown Organization [facility] Address [address] [place] [address] Care Team Providers Care Marketing Sales Representative Name Role Phone Elsewhere, Pcp Primary Care Provider Unavailabl e Reason for Visit * Reason Comments Med Refill Encounter Details Date Type Department Care Team ([facility] st Contact Info) Description 04/26/2022 Refill Division of Endocrinology in [place], [place] [address] [place] [phone] Palma Talley, PAlfie-CAbimael [address] [place] [phone] Med Refill Social History Tobacco Use Types Packs/Day Years [...] often do you attend chur ch or adventism services? More than 4 times per year [...] and heating? Not hard at all 10/04/2021 [facility] of Occupat ional Health - Occupational [...] Sex Assigned at Female 01/01/2021 8:40 AM PREVENTIVE MEDICINE SPECIALIST Gender Identity Female 01/01/2021 8:40 AM PREVENTIVE MEDICINE SPECIALIST Sexual Orientation Straight 01/01/2021 8: 40 AM PREVENTIVE MEDICINE SPECIALIST documented as of this encounter Plan of Treatment Upcoming Encounters Date Type Department Care Team (Late st Contact Info) Description 03/05/2023 11:00 AM PREVENTIVE MEDICINE SPECIALIST Office Visit Division of Endocrinology in [place], [place] [address] [place] [address] Cooper Kessler APRN, C.N.P., D.N.P. [address] [place] [address] documented as of this encounter Visit Diagnoses Diagnosis Obesity Body Mass Index 30-39.9 Adult documented in this encounter Care Teams Marketing Sales Representative Relationship Specialty Start Date End Date Elsewhere, Pcp PCP - General Internal Medicine 04/16/21 documented as of this encounter
--- OUTSIDE RECORDS SUMMARY | 2023-02-23 12:59 | XMS_ITS | Referral Summary ---
Author Name Unknown Organization [facility] Address [address] [place] [address] Care Team Providers Care Banding Machine Operator Name Role Phone Elsewhere, Pcp Primary Care Provider Unavailabl e Source Comments Patient records contain information from all sites at [facility]. For routine questions regarding patient records, call [phone] during business hours, M-F 8:00 AM - 5:00 PM Central Time. Record requests for emergency care only can be directed to [phone] at any time.[facility] Encounters Date Type Department Care Team Description 12/30/2022 Clinical Communication Division of Endocrinology in [place], [place] [address] [place] [address] Krystal Fox APRN, C.N.P. Follow-up Orders 12/02/2022 3:00 PM CDT Telemedicine Division of Endocrinology in [place], [place] [address] [place] [address] Krystal Fox APRN, C.N.P. Obesity Body Mass Index 30-39.9 Adult (Primary Dx); Hypothyroidism Primary from Last 3 Months Allergies Active Allergy Reactions Criticality Noted Date [...] Osteoarthritis 08/27/2020 Asthma Mild Intermittent 08/27/2020 Asthma Social History Tobacco Use Types Packs/Day Years [...] often do you attend chur ch or sabianist services? More than 4 times per year 06/21/2022 Do you belong to any clubs o r organizations such as jewish groups, unions, fraternal or athletic groups, or [...] and heating? Not hard at all 06/21/2022 [facility] of Occupat ional Health - [...] Sex Assigned at Female 01/01/2021 8:40 AM FLOOR DIRECTOR Gender Identity Female 01/01/2021 8:40 AM FLOOR DIRECTOR Sexual Orientation Straight 01/01/2021 8: 40 AM FLOOR DIRECTOR Last Filed Vital Signs Vital Sign Reading Time Taken Comments Blood Pressure 131/83 04/01/2022 2:04 PM FLOOR DIRECTOR Pulse 74 04/01/2022 2:04 PM FLOOR DIRECTOR Temperature - - Respiratory Rate - - Oxygen Saturation - - Inhaled Oxygen Concentration - - Weight 86.5 kg (190 lb 11.2 oz) 12/02/2022 3:05 PM CDT self reported Height 169.2 cm (5' 6.61) 04/01/2022 2 :04 PM FLOOR DIRECTOR Body Mass Index 30.21 04/01/2022 2:04 PM FLOOR DIRECTOR Plan of Treatment Upcoming Encounters Date Type Department Care Team (Late Contact Info) Description 03/05/2023 11:00 AM FLOOR DIRECTOR Office Visit Division of Endocrinology in [place], [place] [address] [place] [address] Cooper Kessler APRN, C.N.P., D.N.P. [address] [place] [address] Medical Devices Implanted Type Area Commercial Green Building Architect Device Identifier Shelf Expiration Date Model / Serial / Lot Hardware E.G. Pins/Screws/Ro ds Hardware e.g. pins/screws/ rods Bilatera l: Foot Description:Hardware Knee Implant-06/17/19 18 Implanted:05/0 02/2017 (Quantity not on file) Knee Implant Left: Knee Ocular (Eye) Implant Ocular (Eye) Implant Bilatera l: Eye Description:Completed 1 week apart - February 2021 Care Teams Banding Machine Operator Relationship Specialty Start Date End Date Elsewhere, Pcp PCP - General Internal Medicine 04/16/21
--- OUTSIDE RECORDS SUMMARY | 2023-02-23 12:59 | XMS_ITS | Encounter Summary ---
Author Name Unknown Organization [facility] Address [address] [place] [address] Care Team Providers Care Bdr Name Role Phone Elsewhere, Pcp Primary Care Provider Unavailabl e Reason for Visit * Reason Onset Date Comments Follow-up Orders 07/22/2022 Encounter Details Date Type Department Care Team (Latest Contact Info) Description 07/22/2022 Clinical Communication Division of Endocrinology in [place], [place] [address] [place] [address] Palma Talley P.A.-C. [address] [place] [phone] Follow-up Orders Social History Tobacco Use Types Packs/Day Years [...] often do you attend chur ch or scientologist services? More than 4 times per year 06/21/2022 Do you belong to any clubs o r organizations such as pentecostalism groups, unions, fraternal or athletic groups, or [...] and heating? Not hard at all 06/21/2022 [facility] [place] of Occupat ional Health - Occupational Stress [...] place to sleep or slept in a [place] [facility] [place] facility (including now)? No 06/21/2022 Nutrition Answer Date [...] Sex Assigned at Female 01/01/2021 8:40 AM ADJUNCT ART HISTORY INSTRUCTOR Gender Identity Female 01/01/2021 8:40 AM ADJUNCT ART HISTORY INSTRUCTOR Sexual Orientation Straight 01/01/2021 8: 40 AM ADJUNCT ART HISTORY INSTRUCTOR documented as of this encounter Plan of Treatment Upcoming Encounters Date Type Department Care Team (Late st Contact Info) Description 03/05/2023 11:00 AM ADJUNCT ART HISTORY INSTRUCTOR Office Visit Division of Endocrinology in [place], [place] [address] [place] [address] Cooper Kessler APRN, C.N.P., D.N.P. [address] [place] [address] documented as of this encounter Visit Diagnoses Not on filedocumented in this encounter Care Teams Bdr Relationship Specialty Start Date End Date Elsewhere, Pcp PCP - General Internal Medicine 04/16/21 documented as of this encounter
--- OUTSIDE RECORDS SUMMARY | 2023-02-23 12:59 | XMS_ITS | Encounter Summary ---
Author Name Unknown Organization [facility] Address [address] [place] [address] Care Team Providers Care Health Promoter Name Role Phone Elsewhere, Pcp Primary Care Provider Unavailabl e Reason for Visit * Reason Onset Date Comments Follow-up Orders 12/30/2022 Encounter Details Date Type Department Care Team (Latest Contact Info) Description 12/30/2022 Clinical Communication Division of Endocrinology in [place], [place] [address] [place] [phone] Krystal Fox, UNA, C.N.P. [address] [place] [phone] Follow-up Orders Social History Tobacco Use Types [...] often do you attend chur ch or amish services? More than 4 times per year 06/21/2022 Do you belong to any clubs o r organizations such as buddhist groups, unions, fraternal or athletic groups, or [...] and heating? Not hard at all 06/21/2022 [facility] of Occupat ional Health - Occupational [...] place to sleep or slept in a long-term (including now)? No 06/21/2022 Nutrition Answer Date [...] Sex Assigned at Female 01/01/2021 8:40 AM NCQA SPECIALIST Gender Identity Female 01/01/2021 8:40 AM NCQA SPECIALIST Sexual Orientation Straight 01/01/2021 8: 40 AM NCQA SPECIALIST documented as of this encounter Plan of Treatment Upcoming Encounters Date Type Department Care Team (Late st Contact Info) Description 03/05/2023 11:00 AM NCQA SPECIALIST Office Visit Division of Endocrinology in [place], [place] 200 [place] [address] Cooper Kessler APRN, C.N.P., D.N.P. [address] [place] [address] documented as of this encounter Visit Diagnoses Not on filedocumented in this encounter Care Teams Health Promoter Relationship Specialty Start Date End Date Elsewhere, Pcp PCP - General Internal Medicine 3/1/22 documented as of this encounter
--- OUTSIDE RECORDS SUMMARY | 2023-02-23 13:00 | XMS_ITS | Encounter Summary ---
Author Name Unknown Organization [facility] Address [address] [place] [address] Care Team Providers Care Equal Opportunity Officer Name Role Phone Rani Faulkner MD Primary Care Provider +1- [phone] Encounter Details Date Type Department Care Team Description 04/25/1997 Orders Only Kathy Camacho Social History Tobacco Use Types Packs/Day Years Used Date Smoking Tobacco: Never Assessed Sex and Gender Information Value Date Recorded Sex Assigned at Not on file Gender Identity Not on file Sexual Orientation Not on file documented as of this encounter Plan of Treatment Not on file documented as of this encounter Visit Diagnoses Not on filedocumented in this encounter Care Teams Equal Opportunity Officer Relationship Specialty Start Date End Date Rani Faulkner MD [address] [place] [address] PCP - General Internal Medicine 11/28/16 documented as of this encounter
--- OUTSIDE RECORDS SUMMARY | 2023-02-23 13:00 | XMS_ITS | Encounter Summary ---
Author Name Unknown Organization [facility] Address [address] [place] [address] Care Team Providers Care Varnishing Unit Operator Name Role Phone Rani Faulkner MD Primary Care Provider +1- [phone] Encounter Details Date Type Department Care Team Description 06/11/1998 Orders Only Max Gomez MD Social History Tobacco Use Types Packs/Day Years Used Date Smoking Tobacco: Never Assessed Sex and Gender Information Value Date Recorded Sex Assigned at Not on file Gender Identity Not on file Sexual Orientation Not on file documented as of this encounter Plan of Treatment Not on file documented as of this encounter Visit Diagnoses Not on filedocumented in this encounter Care Teams Varnishing Unit Operator Relationship Specialty Start Date End Date Rani Faulkner MD [address] [place] [address] PCP - General Internal Medicine 11/28/16 documented as of this encounter
--- OUTSIDE RECORDS SUMMARY | 2023-02-23 13:00 | XMS_ITS | Encounter Summary ---
Author Name Unknown Organization [facility] Address [address] [place] [address] Care Team Providers Care Circulating Nurse Name Role Phone Rani Faulkner MD Primary Care Provider +1- [phone] Encounter Details Date Type Department Care Team Description 01/17/1997 Orders Only Max Gomez MD Social History [...] on filedocumented in this encounter Care Teams Circulating Nurse Relationship Specialty Start Date End Date Rani Faulkner MD [address] [place] [address] PCP - General Internal Medicine 11/28/16 documented as of this encounter
--- OUTSIDE RECORDS SUMMARY | 2023-02-23 13:00 | XMS_ITS | Encounter Summary ---
Author Name Unknown Organization [facility] Address [address] [place] [address] Care Team Providers Care Briquetter Operator Name Role Phone Rani Faulkner MD Primary Care Provider +1- [phone] Encounter Details Date Type Department Care Team Description 10/16/1998 Orders Only David David Social History Tobacco Use Types Packs/Day Years Used Date Smoking Tobacco: Never Assessed Sex and Gender Information Value Date Recorded Sex Assigned at Not on file Gender Identity Not on file Sexual Orientation Not on file documented as of this encounter Plan of Treatment Not on file documented as of this encounter Visit Diagnoses Not on filedocumented in this encounter Care Teams Briquetter Operator Relationship Specialty Start Date End Date Rain Faulkner MD [address] [place] [address] PCP - General Internal Medicine 11/28/16 documented as of this encounter
--- OUTSIDE RECORDS SUMMARY | 2023-02-23 13:00 | XMS_ITS | Encounter Summary ---
Author Name Unknown Organization [facility] Address [address] [place] [address] Care Team Providers Care Reconciliation Clerk Name Role Phone Rani Faulkner MD Primary Care Provider +1- [phone] Encounter Details Date Type Department Care Team Description 07/19/1999 Orders Only [place] [place] [address] Social History Tobacco Use Types Packs/Day Years Used Date Smoking Tobacco: Never Assessed Sex and Gender Information Value Date Recorded Sex Assigned at Not on file Gender Identity Not on file Sexual Orientation Not on file documented as of this encounter Plan of Treatment Not on file documented as of this encounter Visit Diagnoses Not on filedocumented in this encounter Care Teams Reconciliation Clerk Relationship Specialty Start Date End Date Rani Faulkner MD [address] [place] [address] PCP - General Internal Medicine 11/28/16 documented as of this encounter
--- OUTSIDE RECORDS SUMMARY | 2023-02-23 13:00 | XMS_ITS | Encounter Summary ---
Author Name Unknown Organization [facility] Address [address] [place] [address] Care Team Providers Care Instrument Technician Apprentice Name Role Phone Rani Faulkner MD Primary Care Provider +1- [phone] Encounter Details Date Type Department Care Team Description 02/06/1998 Orders Only [address] [address] Angela Darden MD Social History Tobacco Use Types Packs/Day Years Used Date Smoking Tobacco: Never Assessed Sex and Gender Information Value Date Recorded Sex Assigned at Not on file Gender Identity Not on file Sexual Orientation Not on file documented as of this encounter Plan of Treatment Not on file documented as of this encounter Visit Diagnoses Not on filedocumented in this encounter Care Teams Instrument Technician Apprentice Relationship Specialty Start Date End Date Rani Faulkner MD [address] [place] [address] PCP - General Internal Medicine 11/28/16 documented as of this encounter
--- OUTSIDE RECORDS SUMMARY | 2023-02-23 13:00 | XMS_ITS | Encounter Summary ---
Author Name Unknown Organization [facility] Address [address] [place] [address] Care Team Providers Care Detailer School Photographs Name Role Phone Rani Faulkner MD Primary Care Provider +1- [phone] Encounter Details Date Type Department Care Team Description 06/12/1999 Orders Only Marco A Santana MD [address] [facility] [address] [address] Social History Tobacco Use Types Packs/Day Years Used Date Smoking Tobacco: Never Assessed Sex and Gender Information Value Date Recorded Sex Assigned at Not on file Gender Identity Not on file Sexual Orientation Not on file documented as of this encounter Plan of Treatment Not on file documented as of this encounter Visit Diagnoses Not on filedocumented in this encounter Care Teams Detailer School Photographs Relationship Specialty Start Date End Date Rani Faulkner MD [address] [place] [address] PCP - General Internal Medicine 11/28/16 documented as of this encounter
--- OUTSIDE RECORDS SUMMARY | 2023-02-23 13:00 | XMS_ITS | Encounter Summary ---
Author Name Unknown Organization [facility] Address [address] [place] [address] Care Team Providers Care Computer Teacher Name Role Phone Rani Faulkner MD Primary Care Provider +1- [phone] Encounter Details Date Type Department Care Team Description 12/16/1996 Orders Only Max Gomez MD Social History [...] on filedocumented in this encounter Care Teams Computer Teacher Relationship Specialty Start Date End Date Rani Faulkner MD [address] [place] [address] PCP - General Internal Medicine 11/28/16 documented as of this encounter
--- OUTSIDE RECORDS SUMMARY | 2023-02-23 13:00 | XMS_ITS | Encounter Summary ---
Author Name Unknown Organization [facility] Address [address] [place] [address] Care Team Providers Care Oil Transport Driver Name Role Phone Rani Faulkner MD Primary Care Provider +1- [phone] Encounter Details Date Type Department Care Team Description 06/13/1997 Orders Only [address] [address] Angela Darden MD Social History Tobacco Use [...] on filedocumented in this encounter Care Teams Oil Transport Driver Relationship Specialty Start Date End Date Rani Faulkner MD [address] [place] [address] PCP - General Internal Medicine 11/28/16 documented as of this encounter
--- OUTSIDE RECORDS SUMMARY | 2023-02-23 13:00 | XMS_ITS | Encounter Summary ---
Author Name Unknown Organization [facility] Address [address] [place] [address] Care Team Providers Care Recreation Attendant Supervisor Name Role Phone Rani Faulkner MD Primary Care Provider +1- [phone] Encounter Details Date Type Department Care Team Description 03/23/1997 Orders Only Kathy Camacho Social History Tobacco [...] on filedocumented in this encounter Care Teams Recreation Attendant Supervisor Relationship Specialty Start Date End Date Rani Fauklner MD [address] [place] [address] PCP - General Internal Medicine 11/28/16 documented as of this encounter
--- OUTSIDE RECORDS SUMMARY | 2023-02-23 13:00 | XMS_ITS | Encounter Summary ---
Author Name Unknown Organization [facility] Address [address] [place] [address] Care Team Providers Care Straightener Gun Parts Name Role Phone Rani Faulkner MD Primary Care Provider +1- [phone] Encounter Details Date Type Department Care Team Description 02/19/1995 Orders Only Kathy Camacho Social History Tobacco [...] on filedocumented in this encounter Care Teams Straightener Gun Parts Relationship Specialty Start Date End Date Rani Faulkner MD [address] [place] [address] PCP - General Internal Medicine 11/28/16 documented as of this encounter
--- OUTSIDE RECORDS SUMMARY | 2023-02-23 13:00 | XMS_ITS | Encounter Summary ---
Author Name Unknown Organization [facility] Address [address] [place] [address] Care Team Providers Care Transitional Nurse Name Role Phone Rani Faulkner MD Primary Care Provider +1- [phone] Encounter Details Date Type Department Care Team Description 08/28/1999 Orders Only [address] [address] Omer Sharma MD [address] [place] [address] Social History Tobacco Use Types Packs/Day Years Used Date Smoking Tobacco: Never Assessed Sex and Gender Information Value Date Recorded Sex Assigned at Not on file Gender Identity Not on file Sexual Orientation Not on file documented as of this encounter Plan of Treatment Not on file documented as of this encounter Visit Diagnoses Not on filedocumented in this encounter Care Teams Transitional Nurse Relationship Specialty Start Date End Date Rani Faulkner MD [address] [place] [address] PCP - General Internal Medicine 11/28/16 documented as of this encounter
--- OUTSIDE RECORDS SUMMARY | 2023-02-23 13:00 | XMS_ITS | Encounter Summary ---
Author Name Unknown Organization [facility] Address [address] [place] [address] Care Team Providers Care Contract Modeler Name Role Phone Rani Faulkner MD Primary Care Provider +1- [phone] Encounter Details Date Type Department Care Team Description 05/04/1995 Orders Only Kathy Camacho Social History Tobacco [...] on filedocumented in this encounter Care Teams Contract Modeler Relationship Specialty Start Date End Date Rani Faulkner MD [address] [place] [address] PCP - General Internal Medicine 11/28/16 documented as of this encounter
--- OUTSIDE RECORDS SUMMARY | 2023-02-23 13:00 | XMS_ITS | Encounter Summary ---
Author Name Unknown Organization [facility] Address [address] [place] [address] Care Team Providers Care Hvac/R Instructor Name Role Phone Rani Faulkner MD Primary Care Provider +1- [phone] Encounter Details Date Type Department Care Team Description 07/31/1998 Orders Only David David Social History Tobacco [...] on filedocumented in this encounter Care Teams Hvac/R Instructor Relationship Specialty Start Date End Date Rani Faulkner MD [address] [place] [address] PCP - General Internal Medicine 11/28/16 documented as of this encounter
--- OUTSIDE RECORDS SUMMARY | 2023-02-23 13:00 | XMS_ITS | Encounter Summary ---
Author Name Unknown Organization [facility] Address [address] [place] [address] Care Team Providers Care Insurance Claims Analyst Name Role Phone Rani Faulkner MD Primary Care Provider +1- [phone] Encounter Details Date Type Department Care Team Description 11/15/1996 Orders Only Kathy Camacho Social History Tobacco [...] on filedocumented in this encounter Care Teams Insurance Claims Analyst Relationship Specialty Start Date End Date Rani Faulkner MD [address] [place] [address] PCP - General Internal Medicine 11/28/16 documented as of this encounter
--- OUTSIDE RECORDS SUMMARY | 2023-02-23 13:00 | XMS_ITS | Encounter Summary ---
Author Name Unknown Organization [facility] Address [address] [place] [address] Care Team Providers Care Front End Engineer Name Role Phone Rani Faulkner MD Primary Care Provider +1- [phone] Encounter Details Date Type Department Care Team Description 04/17/1995 Orders Only [address] [address] Angela Darden MD Social History Tobacco Use [...] on filedocumented in this encounter Care Teams Front End Engineer Relationship Specialty Start Date End Date Rani Faulkner MD [address] [place] [address] PCP - General Internal Medicine 11/28/16 documented as of this encounter
--- OUTSIDE RECORDS SUMMARY | 2023-02-23 13:00 | XMS_ITS | Encounter Summary ---
Author Name Unknown Organization [facility] Address [address] [place] [address] Care Team Providers Care Pourer Crane Ladle Name Role Phone Rani Faulkner MD Primary Care Provider +1- [phone] Encounter Details Date Type Department Care Team Description 01/04/2007 Consent for Procedure/Treatme nt [facility] [address] [facility] [place], [place] [id number] Nicolas Emmanuel, DPM [address] [place] [address] INFORMED CONSENT RECORD Social History Tobacco Use Types Packs/Day Years Used Date Smoking Tobacco: Never Alcohol Use Standard Drinks/Week Comments Yes 6.7 (1 standard drink = 0.6 oz p ure alcohol) Sex and Gender Information Value Date Recorded Sex Assigned at Not on file Gender Identity Not on file Sexual Orientation Not on file documented as of this encounter Progress Notes * Nicolas Emmanuel - 01/04/2007 12:00 AM CORPORATE TRAINER ORATE TRAINER documented in this encounter Plan of Treatment Not on file documented as of this encounter Visit Diagnoses Not on filedocumented in this encounter Care Teams Pourer Crane Ladle Relationship Specialty Start Date End Date Rani Faulkner MD [address] [place] [address] PCP - General Internal Medicine 11/28/16 documented as of this encounter
--- OUTSIDE RECORDS SUMMARY | 2023-02-23 13:00 | XMS_ITS | Encounter Summary ---
Author Name Unknown Organization [facility] Address [address] [place] [address] Care Team Providers Care Pbx Mechanic Name Role Phone Rani Faulkner MD Primary Care Provider +1- [phone] Encounter Details Date Type Department Care Team Description 04/23/1999 Orders Only [address] [address] Omer Sharma MD [address] [place] [address] Social History Tobacco Use Types Packs/Day Years Used Date Smoking Tobacco: Never Assessed Sex and Gender Information Value Date Recorded Sex Assigned at Not on file Gender Identity Not on file Sexual Orientation Not on file documented as of this encounter Plan of Treatment Not on file documented as of this encounter Visit Diagnoses Not on filedocumented in this encounter Care Teams Pbx Mechanic Relationship Specialty Start Date End Date Rani Faulkner MD [address] [place] [address] PCP - General Internal Medicine 11/28/16 documented as of this encounter
--- OUTSIDE RECORDS SUMMARY | 2023-02-23 13:00 | XMS_ITS | Encounter Summary ---
Author Name Unknown Organization [facility] Address [address] [place] [address] Care Team Providers Care Middle School Assistant Principal Name Role Phone Rani Faulkner MD Primary Care Provider +1- [phone] Encounter Details Date Type Department Care Team Description 06/22/1998 Orders Only Max Gomez MD Social History [...] on filedocumented in this encounter Care Teams Middle School Assistant Principal Relationship Specialty Start Date End Date Rani Faulkner MD [address] [place] [address] PCP - General Internal Medicine 11/28/16 documented as of this encounter
--- OUTSIDE RECORDS SUMMARY | 2023-02-23 13:00 | XMS_ITS | Encounter Summary ---
Author Name Unknown Organization [facility] Address [address] [place] [address] Care Team Providers Care Painter And Decorator Name Role Phone Rani Faulkner MD Primary Care Provider +1- [phone] Encounter Details Date Type Department Care Team Description 1998 Orders Only [address] [address] Angela Darden MD Social History Tobacco Use [...] on filedocumented in this encounter Care Teams Painter And Decorator Relationship Specialty Start Date End Date Rani Faulkner MD [address] [place] [address] PCP - General Internal Medicine 11/28/16 documented as of this encounter
--- OUTSIDE RECORDS SUMMARY | 2023-02-23 13:00 | XMS_ITS | Clinical Summary ---
Author Name Unknown Organization [facility] Address [address] [place] [address] Care Team Providers Care Batch Mixer Name Role Phone Rani Faulkner MD Primary Care Provider +1- [phone] Source Comments You are receiving this document as you are listed as the primary care provider,follow-up provider, or the patient has been referred to you for consultation.This is in compliance with the Medicare and[facility] Hospital[facility] EHR Incentive Program,which states Providers who transition their patient to another setting of careor provider of care or refers their patient to another provider of care shouldprovide summary care record for each transition of care or referral. [facility] Allergies No known active allergies Medications Medication Sig Dispensed Refills Start Date End Date Status ZYRTEC 10 MG OR TABS (ANTI-HISTAMINE)Indica tions:Allergic rhinitis, cause unspecified 1 tablet daily 3 mo 1 10/27/2006 Active MULTIPLE VITAMIN TABS Take one tablet by mouth every day. 0 Active ALBUterol sulfate hfa (PROAIR HFA) 108 (90 BASE) MCG/ACT inhaler Inhale 2-4 Puffs by mouth every 4 hours as needed for Wheezing. 8.5 g 2 04/24/2010 Active FLOVENT HFA 110 MCG/ACT inhaler INHALE 1 PUFF BY MOUTH TWICE DAILY - RINSE MOUTH AFTER USE 24 g 0 08/02/2012 Active levothyroxine (AKA SYNTHROID) 150 MCG tablet TAKE 1 TABLET BY MOUTH DAILY 90 Tab 0 08/02/2012 Active fluticasone (AKA FLONASE) 50 MCG/ACT nasal solution INHALE 2 SPRAYS INTO EACH NOSTRIL DAILY 48 g 0 09/08/2013 Active Active Problems Problem Noted Date Diagnosed Date Hallux valgus, acquired 09/30/2004 Overview: Epic Hammer toe, acquired 07/26/2004 Overview: Other hammer toe (acquired) Follow-up examination following surgery 07/27/19 Overview: Epic Allergic rhinitis 09/06/2001 Overview: flonase and Zyrtec Epic Premenstrual tension syndrome 09/06/2001 Overview: Epic Hypothyroidism 09/03/2001 Overview: levothyroxin .200mg QD Epic Excessive or frequent menstruation 09/03/2001 Overview: controlled on narcisa Immunizations Name Administration Dates Next Due Flu Vac (3+ yrs) 11/11/2010,02/22/2007 Td 12/23/2002 Tdap 07/30/2010 Varicella 06/29/1998(Deferred: Immune by T iter) Family History Medical History Relation Name Comments Cataract Father Hypertension Father Cataract Mother Hypertension Mother may have o f hear failure at age of 78 Retinal Detachment Brother Diabetes, Type II Maternal Grandfather Stroke Maternal Grandfather late 60 s Cancer, Other Maternal Grandmother Diabetes, Type II Maternal Grandmother Cancer, Breast Other MAT AUNT X 2 Stroke Paternal Grandfather 60s Thyroid Disorder Sister Glaucoma Negative Family History Macular Degeneration Negative Family History Relation Name Status Comments Father Mother Brother Maternal Grandfather Maternal Grandmother Other MAT AUNT X 2 Paternal Grandfather Sister Social History Tobacco Use Types Packs/Day Years Used Date Smoking Tobacco: Never Smokeless Tobacco: Never Alcohol Use Standard Drinks/Week Comments Yes 6.7 (1 standard drin k = 0.6 oz pure alcohol) 1-2 glasses of wine per night Sex and Gender Information Value Date Recorded Sex Assigned at Not on file Gender Identity Not on file Sexual Orientation Not on file Last Filed Vital Signs Vital Sign Reading Time Taken Comments Blood Pressure 130/70 03/20/2011 9:24 AM CONFERENCE AND EVENT ORGANISER Pulse 74 03/20/2011 9:24 AM CONFERENCE AND EVENT ORGANISER Temperature 36.9 ??C (98.4 ??F) 03/20/2011 9:24 AM CS T Respiratory Rate 16 11/12/2010 1:28 PM CDT Oxygen Saturation 100% 03/22/2010 4:04 PM CONFERENCE AND EVENT ORGANISER Inhaled Oxygen Concentration - - Weight 116.1 kg (256 lb) 11/12/2010 1:28 PM CDT Height 171.5 cm (5' 7.5) 09/11/2010 9:44 AM CDT Body Mass Index 39.5 09/11/2010 9:44 AM CDT Plan of Treatment Health Maintenance Due Date Last Done Comments COVID-19 Vaccine (#1) 1955 Adult Preventive Visit 07/31/2011 1, 09/14/2007, 09/09/2005, Additional history exists Cervical Cancer Screening 07/30/20132010, 07/30/2010, 09/14/2007, Additional history exists Cholesterol 08/07/2014 08/07/2009, 06/17, 07/31/2000 Colonoscopy 01/26/2015 01/27/2008, 01/27/2008 Mammogram 12/28/2018 12/28/2017, 11/16, 11/21/2015, Additional history exists DTaP/Tdap/Td (2 - Tdap) 07/30/2020 07/30/2010, 12/23 Pneumococcal 65+ Yrs (2 - PCV) 2022 01/05/2018 Influenza (#1) 2022 01/15/2020, 01/16, 03/02/2017, Additional history exists Hep C Screening (Preventive Services) Completed 02/03/2001 Zoster/Shingles Completed 08/21/2018, 05/13/2018 HepA Aged Out No longer eligi ble based on patient's age to complete this topic HepB Aged Out No longer eligi ble based on patient's age to complete this topic Hib Aged Out No longer eligi ble based on patient's age to complete this topic IPV (Polio) Aged Out No longer eligi ble based on patient's age to complete this topic MCV4 Aged Out No longer eligi ble based on patient's age to complete this topic Medical Devices Implanted Type Area Volleyball Commentator Device Identifier Shelf Expiration Date Model / Serial / Lot K-Wire Thrd 9in .045 - [id number] Implanted:Qty: 1 on 04/28/2007 at [facility] DEVICE Left: FOOT [employer] [id number] / / Advance Directives Latest Code Status on File Code Status Date Activated Date Inactivated Comments Full Code 09/26/2009 11:02 AM 09/26/2009 2:57 PM Care Teams Batch Mixer Relationship Specialty Start Date End Date Rani Faulkner MD [address] [place] [address] PCP - General Internal Medicine 11/28/16
--- OUTSIDE RECORDS SUMMARY | 2023-02-23 13:00 | XMS_ITS | Encounter Summary ---
Author Name Unknown Organization [facility] Address [address] [place] [address] Care Team Providers Care Oracle Apex Developer Name Role Phone Rani Faulkner MD Primary Care Provider +1- [phone] Encounter Details Date Type Department Care Team Description 06/18/1999 Orders Only [address] [address] Angela Darden MD Social History Tobacco Use [...] on filedocumented in this encounter Care Teams Oracle Apex Developer Relationship Specialty Start Date End Date Rani Faulkner MD [address] [place] [address] PCP - General Internal Medicine 11/28/16 documented as of this encounter
--- OUTSIDE RECORDS SUMMARY | 2023-02-23 13:00 | XMS_ITS | Encounter Summary ---
Author Name Unknown Organization [facility] Address [address] [place] [address] Care Team Providers Care Purse Framer Name Role Phone Rani Faulkner MD Primary Care Provider +1- [phone] Encounter Details Date Type Department Care Team Description 01/18/1997 Orders Only Kathy Camacho Social History Tobacco [...] on filedocumented in this encounter Care Teams Purse Framer Relationship Specialty Start Date End Date Rani Faulkner MD [address] [place] [address] PCP - General Internal Medicine 11/28/16 documented as of this encounter
--- OUTSIDE RECORDS SUMMARY | 2023-02-23 13:00 | XMS_ITS | Encounter Summary ---
Author Name Unknown Organization [facility] Address [address] [address] Care Team Providers Care Dyer Helper Name Role Phone Rani Faulkner MD Primary Care Provider +1- [phone] Encounter Details Date Type Department Care Team Description 04/21/1994 Orders Only Guillermo Benton MD [address] [place] [address] Social History Tobacco Use Types Packs/Day Years Used Date Smoking Tobacco: Never Assessed Sex and Gender Information Value Date Recorded Sex Assigned at Not on file Gender Identity Not on file Sexual Orientation Not on file documented as of this encounter Plan of Treatment Not on file documented as of this encounter Visit Diagnoses Not on filedocumented in this encounter Care Teams Dyer Helper Relationship Specialty Start Date End Date Rani Faulkner MD [address] [place] [address] PCP - General Internal Medicine 11/28/16 documented as of this encounter
--- OUTSIDE RECORDS SUMMARY | 2023-02-23 13:01 | XMS_ITS | Encounter Summary ---
Author Name Unknown Organization [facility] Address [address] [address] Care Team Providers Care Compensation And Benefits Manager Name Role Phone Rani Faulkner MD Primary Care Provider +1- [phone] Encounter Details Date Type Department Care Team Description 03/18/1994 Orders Only Guillermo Benton MD [address] [place] [address] Social History Tobacco Use Types Packs/Day Years Used Date Smoking Tobacco: Never Assessed Sex and Gender Information Value Date Recorded Sex Assigned at Not on file Gender Identity Not on file Sexual Orientation Not on file documented as of this encounter Plan of Treatment Not on file documented as of this encounter Visit Diagnoses Not on filedocumented in this encounter Care Teams Compensation And Benefits Manager Relationship Specialty Start Date End Date Rani Faulkner MD [address] [place] [address] PCP - General Internal Medicine 11/28/16 documented as of this encounter
--- OUTSIDE RECORDS SUMMARY | 2023-02-23 13:01 | XMS_ITS | Clinical Summary ---
Author Name Unknown Organization [facility] Address [place], [place] [address] Care Team Providers Care Rug Repairer Name Role Phone Rani Faulkner MD Primary Care Provider +1- [phone] Allergies Active Allergy Reactions Criticality Noted Date Comments Dog Hair Standardized Allergenic Extract Other - Describe In Comment Field 08/30/2014 Breathing problems Medications Medication Sig Dispensed Refills Start Date End Date Status levothyroxine (SYNTHROID) 150 mcg tablet Take 1 tablet by mouth before breakfast. 0 08/30/2014 Active fluticasone (FLOVENT HFA) 110 mcg/Actuation inhaler Inhale 1 Puff by mouth 2 times daily. 0 08/30/2014 Active methylPREDNISolone (MEDROL, LIONEL,) 4 mg tabletIndications:C apsulitis of foot, right Take by mouth as instructed per packaging. 1 Package 0 01/23/2015 Active Social History Tobacco Use Types Packs/Day Years Used Date Smoking Tobacco: Never Tobacco Cessation:Counseling Given: Yes Sex and Gender Information Value Date Recorded Sex Assigned at Not on file Gender Identity Not on file Sexual Orientation Not on file Obstetrics History Last Filed Vital Signs Vital Sign Reading Time Taken Comments Blood Pressure 118/79 11/27/2015 2:49 PM CDT Pulse 75 11/27/2015 2:49 PM CDT Temperature - - Respiratory Rate - - Oxygen Saturation 97% 11/27/2015 2:49 PM CDT Inhaled Oxygen Concentration - - Weight 115.5 kg (254 lb 9.6 oz) 11/27/2015 2:49 PM CDT Height - - Body Mass Index - - Plan of Treatment Health Maintenance Due Date Last Done Comments COVID-19 vaccine series (#1) 1955 Tdap 1968 Depression screening for age 12+ 1969 HIV for age 15-65 1972 BMI (ht and wt on same day) for age 18+ 05/11/1975 Hepatitis C screening for age 18-79 05/11/1975 Tetanus booster 1977 Colonoscopy through age 75 2002 Lipids for age 45-75 2002 Mammogram for age 45-75 2002 Zoster (shingles) series for age 50+ (1 of 2) 05/11/2007 Pap test for age 21-65 02/01/2021 02/01/2018, 2017 DEXA/DXA scan for age 65+ 2022 Pneumococcal series for age 65+ (1 of 1 - PCV) 2022 Influenza for age 65+ 10/17/2022 Care Teams Rug Repairer Relationship Specialty Start Date End Date Rani Faulkner MD [address] [place] [address] PCP - General Internal Medicine 08/23/14
== END 2023-02-17 08:01 | disposition home or self-care (01) ==
LOC: NFLDREF 02-23 12:55
PROVIDERS: PCP Internal Medicine; Referring Provider Internal Medicine; Visit Provider Internal Medicine
DX: E03.9 Hypothyroidism, unspecified (principal); R23.3 Spontaneous ecchymoses; Z13.6 Encounter for screening for cardiovascular disorders
CPT/HCPCS: 80061; 84443

== ENCOUNTER 2023-04-23 14:50 | Outpatient (CLI) | payer OTHER, SELFPAY ==
--- NOTE | 2023-04-23 15:00 | XR_ITS ---
Patient: DHARMESH RUTLEDGE Facility:?[facility] Patient ID:?[id number] Site Patient ID:?[id number] Site :?[id number] Study:?DEXA-Bone Density-04/23/2023 3:45:09 PM Ordering Physician:HARRY Final Report: DXA BONE MINERAL DENSITY STUDY Reason for exam: Asymptomatic menopausal state. Current height (in): 67.0. Weight (lb): 192.0. Menopause age: 47. Ethnicity: White. 1. Have you had a previous hip or vertebral fracture? No. 2. Have you had any fractures during your adult life which did not result from significant trauma (e.g., auto accident)? No. 3. Did either of your parents have a hip fracture? No. 4. Do you smoke? No. 5. Have you ever taken Glucocorticoids? No. 6. Do you have rheumatoid arthritis? No. 7. Do you have secondary osteoporosis? No. 8. Do you drink 3 or more alcoholic drinks per day? No. 9. Are you being treated for osteoporosis? No. 10. Have you ever taken any of the following medications: Actonel, Evista, Fosamax, Miacalcin, Reclast, Boniva, Forteo, HRT (i.e. estrogen/hormone therapy), Protelos, Prolia, Vitamin D, Calcium, other ? please specify. ANSWER: Yes, calcium, vitamin D. 11. Do you have any of the following medical conditions: Anorexia or bulimia, asthma or emphysema, end stage renal disease, hyperparathyroidism, any seizure disorders, cancer, inflammatory bowel diseases, hysterectomy, other ? please specify. ANSWER: Yes, asthma or emphysema. 12. What was your maximum height (inches)? 68. 13. Do you perform weight bearing exercise regularly? No. 14. Do you regularly consume dairy products? Yes. 15. Do you drink caffeinated beverages? Yes. 16. At what age did your period start? 14. 17. Are you premenopausal? No. 18. How many full term pregnancies have you had? Zero. 19. Have you ever missed your period for more than 6 months in a row (not including or menopause)? No. TECHNIQUE: Bone mineral density study was performed using the Xanodyne. FINDINGS: The results of the study expressed as bone mineral density (BMD) are as follows: Lumbar spine L1 to L4: BMD: 1.069 g/cm2. T-score: 0.2. Z-score: 2.0. Neck Left: BMD: 0.737 g/cm2. T-score: -1.0. Z-score: 0.6. Right: BMD: 0.847 g/cm2. T-score: -0.0. Z-score: 1.5. Total Left: BMD: 1.025 g/cm2. T-score: 0.7. Z-score: 2.0. Right: BMD: 1.032 g/cm2. T-score: 0.7. Z-score: 2.0. IMPRESSION: Normal bone density. Daphne Lim M.D. Body/Diagnostic Radiologist [email or web address] VIJI/kwame D& be/Dictated by: Daphne Lim MD @ 04/24/2023 3:46:00 AM Signed by:?Daphne Lim MD @04/24/2023 10:28:38 PM (Electronic Signature)
== END 2023-04-23 14:51 | disposition home or self-care (01) ==
LOC: RAD 14:51
PROVIDERS: PCP Internal Medicine; Visit Provider Internal Medicine
DX: Z78.0 Asymptomatic menopausal state (principal)
CPT/HCPCS: 77080

== ENCOUNTER 2023-09-10 14:59 | Outpatient (CLI) | payer OTHER, SELFPAY ==
--- NOTE | 2023-09-10 15:00 | CRLHL7_ITS ---
For Patients: As a result of the Century Cures Act, medical imaging exams and procedure reports are released immediately into your electronic medical record. You may view this report before your referring provider. If you have questions, please contact your health care provider. BILATERAL SCREENING MAMMOGRAM WITH COMPUTER-AIDED DETECTION AND TOMOSYNTHESIS TECHNIQUE: CC and MLO views were obtained. These mammographic images have been obtained using full-field digital technique. These mammographic images were interpreted with the benefit of computer-aided detection. Breast Tomosynthesis was used in this interpretation. COMPARISON FILM: 08/13/22, 07/23/21, 06/25/20. FINDINGS: There are scattered areas of fibroglandular density IMPRESSION: There is no radiographic evidence for malignancy. ASSESSMENT: BI-RADS Category 1: Negative RECOMMENDATION: Routine screening mammogram in 1 year. A lay language report of this examination will be provided to the patient. Marco A Macias M.D. Diagnostic Radiologist [email or web address] GUILLERMO/Dictated by: Marco A Macias MD @ 09/11/2023 8:50:00 AM (Electronically Signed)
--- OUTSIDE RECORDS SUMMARY | 2023-09-10 15:01 | XMS_ITS | Referral Summary ---
Author Organization [facility] Address [address] [place] [address] Care Team Providers Care Correctional Therapy Director Name Role Phone Elsewhere, Pcp Primary Care Provider Unavailabl e Source Comments Patient records contain information from all sites at [facility]. For routine questions regarding patient records, call [phone] during business hours, M-F 8:00 AM - 5:00 PM Central Time. Record requests for emergency care only can be directed to [phone] at any time.[facility] Encounters Date Type Department Care Team Description 09/01/2023 Refill Division of Endocrinology in [place], [place] [address] [place] [address] Cooper Kessler APRN, C.N.P., D.N.P. Med Refill 07/27/2023 Refill Division of Endocrinology in [place], [place] [address] [place] [address] Cooper Kessler APRN, C.N.P., D.N.P. Med Refill; Meds: Nutrition (phentermine-topiramate (Qsymia) 15-92 mg capsule) from Last 3 Months Allergies Active Allergy [...] puffs every 4 (four) hours as needed. 04/24/2010 Active cetirizine (ZyrTEC) 10 mg tablet Take 10 mg by mouth as needed. 10/27/2006 Active fluticasone propionate (FLONASE) 50 mcg/actuation nasal spray INHALE 2 SPRAYS INTO EACH NOSTRIL DAILY 09/08/2013 Active fluticasone propionate (FLOVENT HFA) 110 mcg/actuation inhaler Inhale 2 puffs 2 (two) times a day. 08/02/2012 Active levothyroxine (SYNTHROID, LEVOTHROID) 150 mcg tablet Take 150 mcg by mouth as directed. Take one tablet daily Thursday through Thursday and take 0.5 tablet Thursday and Thursday (PCP to recheck thyroid levels) 08/02/2012 Active montelukast (SINGULAIR) 10 mg tablet Take 10 mg by mouth at bedtime. 05/25/2020 Active phentermine-topir amate (Qsymia) 15-92 mg capsule, ER multiphase 24 hr ER capsuleIndication s:Obesity Body Mass Index 30-39.9 Adult Take 1 capsule by mouth daily before morning meal. 30 capsule 2 09/01/2023 Active phentermine-topir amate (Qsymia) 11.25-69 mg capsule, ER multiphase 24 hr ER capsuleIndication s:Obesity Body Mass Index 30-39.9 Adult Take 1 capsule by mouth daily. 14 capsule 09/01/2023 Active phentermine-topir amate (Qsymia) 11.25-69 mg capsule, ER multiphase 24 hr ext release capsule Take 1 capsule by mouth daily. 14 capsule 05/01/2023 09/01/2023 Discontinued (Reorder) phentermine-topir amate (Qsymia) 15-92 mg capsule, ER multiphase 24 hr ext release capsule Take 1 capsule by mouth every morning before breakfast. 30 capsule 2 07/27/2023 09/01/2023 Discontinued (Reorder) Active Problems Problem Noted Date Diagnosed Date [...] often do you attend chur ch or mandaeism services? More than 4 times per year 06/21/2022 Do you belong to any clubs o r organizations such as orthodoxy groups, unions, fraternal or athletic groups, or [...] and heating? Not hard at all 06/21/2022 [facility] of Occupat ional Health - Occupational Stress [...] now)? No 06/21/2022 Nutrition Answer Date Recorded On average, how many serving s of [...] Sex Assigned at Female 01/01/2021 8:40 AM CYBER SPECIAL AGENT Gender Identity Female 01/01/2021 8:40 AM CYBER SPECIAL AGENT Sexual Orientation Straight 01/01/2021 8: 40 AM CYBER SPECIAL AGENT Last Filed Vital Signs Vital Sign Reading Time Taken Comments Blood Pressure 133/83 03/05/2023 10:59 AM CYBER SPECIAL AGENT Pulse 74 03/05/2023 10:59 AM CYBER SPECIAL AGENT Temperature - - Respiratory Rate - - Oxygen Saturation - - Inhaled Oxygen Concentration - - Weight 88.4 kg (194 lb 14.2 oz) 024 10:59 AM CYBER SPECIAL AGENT Height 169.5 cm (5' 6.73) 03/05/2023 1 0:59 AM CYBER SPECIAL AGENT Body Mass Index 30.77 03/05/2023 10:59 AM CYBER SPECIAL AGENT Plan of Treatment Upcoming Encounters Date Type Department Care Team (Late st Contact Info) Description 10/20/2023 4:00 PM CDT Telemedicine Division of Endocrinology in [place], [place] [address] [place] [phone] Cooper Kessler APRN, C.N.P., D.N.P. [address] [place] [phone] Medical Devices Implanted Type Area Field Installer Device Identifier Shelf Expiration Date Model / Serial / Lot Hardware E.G. Pins/Screws/Ro ds Hardware e.g. pins/screws/ rods Bilatera l: Foot Description:Hardware Knee Implant-06/17/19 18 Implanted:05/0 02/2017 (Quantity not on file) Knee Implant Left: Knee Ocular (Eye) Implant Ocular (Eye) Implant Bilatera l: Eye Description:Completed 1 week apart - February 2021 Care Teams Correctional Therapy Director Relationship Specialty Start Date End Date Elsewhere, Pcp PCP - General Internal Medicine 04/16/21
--- OUTSIDE RECORDS SUMMARY | 2023-09-10 15:01 | XMS_ITS | Encounter Summary ---
Author Organization [employer] Address [address], [place] [address] Care Team Providers Care Trauma Director Name Role Phone Rani Faulkner MD Primary Care Provider +1- [phone] Encounter Details Date Type Department Care Team (Late st Contact Info) Description 06/13/1997 Orders Only [address] [address] Angela Darden MD Social History Tobacco Use [...] on filedocumented in this encounter Care Teams Trauma Director Relationship Specialty Start Date End Date Rani Faulkner MD [address] [place] [address] PCP - General Internal Medicine 11/28/16 documented as of this encounter
--- OUTSIDE RECORDS SUMMARY | 2023-09-10 15:01 | XMS_ITS | Encounter Summary ---
Author Organization [employer] Address [address], [place] [address] Care Team Providers Care Schedule Planning Manager Name Role Phone Rani Faulkner MD Primary Care Provider +1- [phone] Encounter Details Date Type Department Care Team (Late st Contact Info) Description 04/23/1999 Orders Only [address] [address] Omer Sharma MD [address] [place] [address] Social History Tobacco Use Types Packs/Day Years Used Date Smoking Tobacco: Never Assessed Sex and Gender Information Value Date Recorded Sex Assigned at Not on file Gender Identity Not on file Sexual Orientation Not on file documented as of this encounter Plan of Treatment Not on file documented as of this encounter Visit Diagnoses Not on filedocumented in this encounter Care Teams Schedule Planning Manager Relationship Specialty Start Date End Date Rani Faulkner MD [address] [place] [address] PCP - General Internal Medicine 11/28/16 documented as of this encounter
--- OUTSIDE RECORDS SUMMARY | 2023-09-10 15:01 | XMS_ITS | Encounter Summary ---
Author Organization [employer] Address [address] [address] Care Team Providers Care Director Sales And Marketing Name Role Phone Rani Faulkner MD Primary Care Provider +1- [phone] Encounter Details Date Type Department Care Team (Latest Contact Info) Description 07/19/1999 Orders Only [employer], [place] [address] Social History Tobacco Use Types Packs/Day Years Used Date Smoking Tobacco: Never Assessed Sex and Gender Information Value Date Recorded Sex Assigned at Not on file Gender Identity Not on file Sexual Orientation Not on file documented as of this encounter Plan of Treatment Not on file documented as of this encounter Visit Diagnoses Not on filedocumented in this encounter Care Teams Director Sales And Marketing Relationship Specialty Start Date End Date Rani Faulkner MD [address] [place] [address] PCP - General Internal Medicine 11/28/16 documented as of this encounter
--- OUTSIDE RECORDS SUMMARY | 2023-09-10 15:01 | XMS_ITS | Encounter Summary ---
Author Organization [employer] Address [address], [place] [address] Care Team Providers Care Financial Sales Assistant Name Role Phone Rani Faulkner MD Primary Care Provider +1- [phone] Encounter Details Date Type Department Care Team (Late st Contact Info) Description 08/28/1999 Orders Only [address] [address] Omer Sharma MD [address] [place] [address] Social History Tobacco Use Types Packs/Day Years Used Date Smoking Tobacco: Never Assessed Sex and Gender Information Value Date Recorded Sex Assigned at Not on file Gender Identity Not on file Sexual Orientation Not on file documented as of this encounter Plan of Treatment Not on file documented as of this encounter Visit Diagnoses Not on filedocumented in this encounter Care Teams Financial Sales Assistant Relationship Specialty Start Date End Date Rani Faulkner MD [address] [place] [address] PCP - General Internal Medicine 11/28/16 documented as of this encounter
--- OUTSIDE RECORDS SUMMARY | 2023-09-10 15:01 | XMS_ITS | Encounter Summary ---
Author Organization [employer] Address [address], [place] [address] Care Team Providers Care Developmental Writing Instructor Name Role Phone Rani Faulkner MD Primary Care Provider +1- [phone] Encounter Details Date Type Department Care Team (Latest Contact Info) Description 06/12/1999 Orders Only Marco A Santana MD [address] [facility] [address] [place] [address] [place] [address] Social History Tobacco Use Types Packs/Day Years Used Date Smoking Tobacco: Never Assessed Sex and Gender Information Value Date Recorded Sex Assigned at Not on file Gender Identity Not on file Sexual Orientation Not on file documented as of this encounter Plan of Treatment Not on file documented as of this encounter Visit Diagnoses Not on filedocumented in this encounter Care Teams Developmental Writing Instructor Relationship Specialty Start Date End Date Rani Faulkner MD [address] [place] [address] PCP - General Internal Medicine 11/28/16 documented as of this encounter
--- OUTSIDE RECORDS SUMMARY | 2023-09-10 15:01 | XMS_ITS | Encounter Summary ---
Author Organization [employer] Address [address], [place] [address] Care Team Providers Care Picker Name Role Phone Rani Faulkner MD Primary Care Provider +1- [phone] Encounter Details Date Type Department Care Team (Latest Contact Info) Description 10/16/1998 Orders Only David David Social [...] on filedocumented in this encounter Care Teams Picker Relationship Specialty Start Date End Date Rani Faulkner MD [address] [place] [address] PCP - General Internal Medicine 11/28/16 documented as of this encounter
--- OUTSIDE RECORDS SUMMARY | 2023-09-10 15:01 | XMS_ITS | Encounter Summary ---
Author Organization [employer] Address [address] [place] [address] Care Team Providers Care Soldering Machine Operator Automatic Name Role Phone Rani Faulkner MD Primary Care Provider +1- [phone] Encounter Details Date Type Department Care Team (Late st Contact Info) Description 01/04/2007 Consent for Procedure/Treatme nt [facility] [address] [facility] [place] [address] Nicolas Emmanuel, DPM [address] [place] [address] INFORMED CONSENT RECORD Social History [...] * Nicolas Emmanuel - 01/04/2007 12:00 AM LOCK UP WORKER UP WORKER documented in this encounter Plan of Treatment Not on file documented as of this encounter Visit Diagnoses Not on filedocumented in this encounter Care Teams Soldering Machine Operator Automatic Relationship Specialty Start Date End Date Rani Faulkner MD [address] [place] [address] PCP - General Internal Medicine 11/28/16 documented as of this encounter
--- OUTSIDE RECORDS SUMMARY | 2023-09-10 15:01 | XMS_ITS | Encounter Summary ---
Author Organization [facility] [facility] Address [address], [place] [address] Care Team Providers Care Operating Room Coordinator Name Role Phone Rani Faulkner MD Primary Care Provider +1- [phone] Encounter Details Date Type Department Care Team (Latest Contact Info) Description 04/25/1997 Orders Only Kathy Camacho Social [...] on filedocumented in this encounter Care Teams Operating Room Coordinator Relationship Specialty Start Date End Date Rani Faulkner MD [address] [place] [address] PCP - General Internal Medicine 11/28/16 documented as of this encounter
--- OUTSIDE RECORDS SUMMARY | 2023-09-10 15:01 | XMS_ITS | Clinical Summary ---
Author Organization [facility] Address [address] [place] [address] Care Team Providers Care Aquatic Performer Name Role Phone Elsewhere, Pcp Primary Care Provider Unavailabl e Source Comments Patient records contain information from all sites at [facility]. For routine questions regarding patient records, call [phone] during business hours, M-F 8:00 AM - 5:00 PM Central Time. Record requests for emergency care only can be directed to [phone] at any time.[facility] Allergies Active Allergy Reactions Criticality Noted Date [...] Description 09/01/2023 Refill Division of Endocrinology in [place], [place] [address] [place] [address] Cooper Kessler APRN, C.N.P., D.N.P. Med Refill 07/27/2023 Refill Division of Endocrinology in [place], [place] [address] [place] [address] Cooper Kessler APRN, C.N.P., D.N.P. Med Refill; Meds: Nutrition (phentermine-topiramate (Qsymia) 15-92 mg capsule) from Last 3 Months Family History Medical History Relation Name Comments Arthritis Brother Abdirahman Turner Hyperlipidemia Brother Abdirahman Turner Hypertension Brother Abdirahman Solimanjohn Prostate cancer Brother Abdirahman Turner diagnosed i n his 60s Arthritis Father Natan Turner Hyperlipidemia Father Natan Turner Hypertension Father Natan Turner Prostate cancer Father Natan Turner diagnosed in his 70s Stroke Father Natan Turner Transient ischemic attack Father Natan Turner Diabetes Maternal Grandfather Karma Nelsonttmiriam Arthritis Maternal Grandmother Mayra Oetting Colon cancer Maternal Grandmother Mayra Turpin diagno sed in her 80s Diabetes Maternal Grandmother Mayra Oetting Obesity Maternal Grandmother Mayra Oetting Colon polyps Mother Florina Turner Hyperlipidemia Mother Florina Turner Hypertension Mother Florina Turner Breast cancer Mother's Sister 1 Turner Monacoaberyanneg di agnosed in her 80s Breast cancer Mother's Sister 2 [place] Waldemar diagnose d in her 50s Diabetes Paternal Grandfather Paxton Turnre Obesity Paternal Grandfather Paxton Turner Arthritis Sister Terri Antonio Breast cancer Sister Terri Antonio diagnosis & lumpectomy 2020 Colon polyps Sister Terri Paco Hyperlipidemia Sister Terri Paco Hypertension Sister Terri Apco Thyroid disease Sister Terri Antonio Hypothyroi dism Relation Name Status Comments Brother Abdirahman Turner Father Natan Turner Maternal Grandfather Karma Oetting Maternal Grandmother Mayra Oetting Mother Florina Turner Mother's Sister 1 Turner [place] Mother's Sister 2 [place] Waldemar Paternal Grandfather Paxton Turner Sister Terri Antonio [...] How often do you attend chur or catholic services? More than 4 times per year 06/21/2022 Do you belong to any clubs o r organizations such as christianity groups, unions, fraternal or athletic groups, or [...] and heating? Not hard at all 06/21/2022 [facility] of Occupat ional Health - Occupational Stress [...] Sex Assigned at Female 01/01/2021 8:40 AM ASSAULT AMPHIBIOUS VEHICLE CREWMAN Gender Identity Female 01/01/2021 8:40 AM ASSAULT AMPHIBIOUS VEHICLE CREWMAN Sexual Orientation Straight 01/01/2021 8: 40 AM ASSAULT AMPHIBIOUS VEHICLE CREWMAN Last Filed Vital Signs Vital Sign Reading Time Taken Comments Blood Pressure 133/83 03/05/2023 10:59 AM ASSAULT AMPHIBIOUS VEHICLE CREWMAN Pulse 74 03/05/2023 10:59 AM ASSAULT AMPHIBIOUS VEHICLE CREWMAN Temperature - - Respiratory Rate - - Oxygen Saturation - - Inhaled Oxygen Concentration - - Weight 88.4 kg (194 lb 14.2 oz) 024 10:59 AM ASSAULT AMPHIBIOUS VEHICLE CREWMAN Height 169.5 cm (5' 6.73) 03/05/2023 1 0:59 AM ASSAULT AMPHIBIOUS VEHICLE CREWMAN Body Mass Index 30.77 03/05/2023 10:59 AM ASSAULT AMPHIBIOUS VEHICLE CREWMAN Plan of Treatment Upcoming Encounters Date Type Department Care Team (Late st Contact Info) Description 10/20/2023 4:00 PM CDT Telemedicine Division of Endocrinology in [place], [place] [address] [place] [address] Cooper Kessler APRN, C.N.P., D.N.P. [address] [place] [address] Health Maintenance Due Date Last Done Comments Bone Density Scan (Osteoporo sis Screen) 1957 CT Colonography 1957 Cologuard 1955 Colonoscopy 1955 Colorectal Cancer Screening 1955 FIT 1957 Fasting Glucose for Diabetes Screening 1955 Hepatitis C Screening 1955 Thyroid Stimulating Hormone (TSH) test for thyroid function 1955 Mammogram 12/28/2018 12/28/2017, 12/17, 11/28/2016, Additional history exists Depression Screening (Annual PHQ-2) 02/16/2023 Fall Risk Screen (Annual) 02/16/2023 COVID-19 Vaccine (2022-2 4 season) 2023 02/04/2023, 08/01/2022, 01/17/2022, Additional history exists Influenza Vaccine (#1) 2023 , 12/11/2021, 12/27/2020, Additional history exists DTaP,Tdap,and Td Vaccines (3 - Td or Tdap) 02/19/2031 02/19/2021, 07/30/2010, 12/23/2002 Cervical Cancer Screening Discontinued 02/01/2018, Zoster Vaccines Completed 08/21/2018, 05/13/2018 Pneumococcal vaccine (65+ years) Completed 02/13/20 23, 01/05/2018 Medical Devices Implanted Type Area Angular Developer Device Identifier Shelf Expiration Date Model / Serial / Lot Hardware E.G. Pins/Screws/Ro ds Hardware e.g. pins/screws/ rods Bilatera l: Foot Description:Hardware Knee Implant-06/17/19 18 Implanted:05/0 02/2017 (Quantity not on file) Knee Implant Left: Knee Ocular (Eye) Implant Ocular (Eye) Implant Bilatera l: Eye Description:Completed 1 week apart - February 2021 Care Teams Aquatic Performer Relationship Specialty Start Date End Date Elsewhere, Pcp PCP - General Internal Medicine 04/16/21
--- OUTSIDE RECORDS SUMMARY | 2023-09-10 15:01 | XMS_ITS | Encounter Summary ---
Author Organization [employer] Address [address], [place] [address] Care Team Providers Care Vending Machine Filler Name Role Phone Rani Faulkner MD Primary Care Provider +1- [phone] Encounter Details Date Type Department Care Team (Late st Contact Info) Description 06/18/1999 Orders Only [address] [address] Angela Darden MD Social History Tobacco Use [...] on filedocumented in this encounter Care Teams Vending Machine Filler Relationship Specialty Start Date End Date Rani Faulkner MD [address] [place] [address] PCP - General Internal Medicine 11/28/16 documented as of this encounter
--- OUTSIDE RECORDS SUMMARY | 2023-09-10 15:01 | XMS_ITS | Encounter Summary ---
Author Organization [employer] Address [address] [address] Care Team Providers Care Insurance Defense Paralegal Name Role Phone Rani Faulkner MD Primary Care Provider +1- [phone] Encounter Details Date Type Department Care Team (Latest Contact Info) Description 06/22/1998 Orders Only Max Gomez MD [...] filedocumented in this encounter Care Teams Insurance Defense Paralegal Relationship Specialty Start Date End Date Rani Faulkner MD [address] [place] [address] PCP - General Internal Medicine 11/28/16 documented as of this encounter
--- OUTSIDE RECORDS SUMMARY | 2023-09-10 15:01 | XMS_ITS | Encounter Summary ---
Author Organization [employer] Address [address], [place] [address] Care Team Providers Care Portable Machine Sander Name Role Phone Rani Faulkner MD Primary Care Provider +1- [phone] Encounter Details Date Type Department Care Team (Latest Contact Info) Description 07/31/1998 Orders Only David David Social [...] on filedocumented in this encounter Care Teams Portable Machine Sander Relationship Specialty Start Date End Date Rani Faulkner MD [address] [place] [address] PCP - General Internal Medicine 11/28/16 documented as of this encounter
--- OUTSIDE RECORDS SUMMARY | 2023-09-10 15:01 | XMS_ITS | Encounter Summary ---
Author Organization [employer] Address [address], [place] [address] Care Team Providers Care Cost Engineer Name Role Phone Rani Faulkner MD Primary Care Provider +1- [phone] Encounter Details Date Type Department Care Team (Late st Contact Info) Description 02/06/1998 Orders Only [address] [address] Angela Darden MD Social History Tobacco Use [...] on filedocumented in this encounter Care Teams Cost Engineer Relationship Specialty Start Date End Date Rani Faulkner MD [address] [place] [address] PCP - General Internal Medicine 11/28/16 documented as of this encounter
--- OUTSIDE RECORDS SUMMARY | 2023-09-10 15:01 | XMS_ITS | Encounter Summary ---
Author Organization [employer] Address [address], [place] [address] Care Team Providers Care Coke Oven Patcher Name Role Phone Rani Faulkner MD Primary Care Provider +1- [phone] Encounter Details Date Type Department Care Team (Late st Contact Info) Description 1998 Orders Only [address] [address] Angela Darden MD Social History Tobacco Use [...] on filedocumented in this encounter Care Teams Coke Oven Patcher Relationship Specialty Start Date End Date Rani Faulkner MD [address] [place] [address] PCP - General Internal Medicine 11/28/16 documented as of this encounter
--- OUTSIDE RECORDS SUMMARY | 2023-09-10 15:01 | XMS_ITS | Clinical Summary ---
Author Organization [employer] Address [address], [place] [address] Care Team Providers Care Television Repairman Name Role Phone Rani Faulkner MD Primary Care Provider +1- [phone] Source Comments You are receiving this document as you are listed as the primary care provider,follow-up provider, or the patient has been referred to you for consultation.This is in compliance with the Medicare and[facility] EHR Incentive Program,which states Providers who transition their patient to another setting of careor provider of care or refers their patient to another provider of care shouldprovide summary care record for each transition of care or referral. [facility] Allergies No known active allergies Medications Medication Sig Dispensed Refills Start Date End Date Status ZYRTEC 10 MG OR TABS (ANTI-HISTAMINE)Indica tions:Allergic rhinitis, cause unspecified 1 tablet daily 3 mo 1 yr 10/27/2006 Active MULTIPLE VITAMIN TABS Take one tablet by mouth every day. Active ALBUterol sulfate hfa (PROAIR HFA) 108 [...] Comments Blood Pressure 130/70 03/20/2011 9:24 AM NEEDLE PROCESS FELT GOODS SUPERVISOR Pulse 74 03/20/2011 9:24 AM NEEDLE PROCESS FELT GOODS SUPERVISOR Temperature 36.9 ??C (98.4 ??F) 03/20/2011 9:24 AM CS T Respiratory Rate 16 11/12/2010 1:28 PM CDT Oxygen Saturation 100% 03/22/2010 4:04 PM NEEDLE PROCESS FELT GOODS SUPERVISOR Inhaled Oxygen Concentration - - Weight 116.1 kg (256 lb) 11/12/2010 1:28 PM CDT Height 171.5 cm (5' 7.5) 09/11/2010 9:44 AM CDT Body Mass Index 39.5 09/11/2010 9:44 AM CDT Plan of Treatment Health Maintenance Due Date Last Done Comments Adult Preventive Visit 07/31/2011 1, 09/14/2007, 09/09/2005, Additional history exists Cholesterol 08/07/2014 08/07/2009, 06/17, 07/31/2000 Colonoscopy 01/26/2015 01/27/2008, 01/27/2008 Mammogram 12/28/2018 12/28/2017, 11/16, 11/21/2015, Additional history exists DTaP/Tdap/Td (2 - Tdap) 07/30/2020 07/30/2010, 12/23 Pneumococcal 65+ Yrs (2 - PCV) 2022 01/05/2018 COVID-19 Vaccine (3 - season) 2022 06/01/2020, 05/04/2020 Influenza (#1) 2023 01/15/2020, 01/16, 03/02/2017, Additional history exists Hep C Screening (Preventive Services) Completed 02/03/2001 Cervical Cancer Screening Discontinued 2010, 07/30/2010, 09/14/2007, Additional history exists Zoster/Shingles Completed 08/21/2018, 05/13/2018 HepA Aged Out [...] this topic Medical Devices Implanted Type Area Pill Maker Device Identifier Shelf Expiration Date Model / Serial / Lot Wire Maryse .045 - [id number] Implanted:Qty: 2 on 04/28/2007 at [facility] DEVICE Left: FOOT [employer] 71-102 / / K-Wire Thrd 9in .045 - [id number] Implanted:Qty: 1 on 04/28/2007 at [facility] DEVICE Left: FOOT Vivakor [id number] / / Procedures Procedure Name Priority Date/Time Associated Diagnosis Comments MM MAMMOGRAM SCREENING BILAT W CAD Routine 12/28/2017 4:11 PM NEEDLE PROCESS FELT GOODS SUPERVISOR PAP TEST, ROUTINE Routine 07/30/2010 1:2 0 PM CDT Screening for malignant neoplasm of the cervix LIPID PANEL & DIRECT LDL (IF NEEDED) Routine 08/07/2009 8:39 AM CDT Screening Cholesterol Level COLONOSCOPY Routine 01/27/2008 9:35 AM NEEDLE PROCESS FELT GOODS SUPERVISOR Screen for Colon Cancer HEPATITIS C ANTIBODY, WITH REFLEX Routine 02/03/2001 10:08 AM NEEDLE PROCESS FELT GOODS SUPERVISOR from Last 3 Months or Most Recently Relevant to Health Maintenance Results * MM Mammogram Screening Bilat W CAD (12/28/2017 4:11 PM NEEDLE PROCESS FELT GOODS SUPERVISOR) Anatomical Region Laterality Modality Breast Bilateral Mammography Impressions 12/29/2017 2:41 PM NEEDLE PROCESS FELT GOODS SUPERVISOR : ACR BI-RADS Category 1: Negative RECOMMENDATION: Follow Up Imaging in 12 months - Bilateral The results and recommendations of this examination will be communicated to the patient. Narrative 12/29/2017 2:41 PM NEEDLE PROCESS FELT GOODS SUPERVISOR MM MAMMOGRAM SCREENING BILAT W CAD performed on 12/28/17 Compared to: 11/28/2016 MM Mammogram Screening Bilat W CAD, 11/21/2015 MM Mammogram Screening Bilat W CAD, and 11/01/2014 MAMMOGRAM SCREENING BILATERAL FINDINGS: Bilateral screening mammogram was performed with the assistance of Computer-Aided Detection. The breasts have scattered areas of fibroglandular density. There is no radiographic evidence of malignancy. ?? Rani Faulkner MD RAD SAGAR * PAP TEST, ROUTINE (07/30/2010 1:20 PM CDT) Cytology, Pap (NOTE) Tavern Operator Cytology Report Patient Name: DHARMESH TURNER Taken: 07/30/2010 Received: 07/31/2010 Reported: 08/09/2010 Physician(s): DOMITILA ASHBY ([id number]) ?Source of Specimen Liquid routine Pap, cervical/endocervi pauline: ?Specimen Adequacy ?Satisfactory for evaluation. ??Endocervical component absent. ? Final Cytologic Interpretation/Res ult NEGATIVE FOR INTRAEPITHELIAL LESION OR MALIGNANCY (NILM) ?Other Cytologic Findings ?Inflammation Electronically Signed Out By Dalila LOMAX(ASCP) Dalila Galeas CT(ASCP) ? Pap Smear History Date of Last Menstrual Period: 07/05/10 ?? Microscopic Description Microscopic examination is performed. [facility] 07/30/2010 1:20 PM CDT 07/31/2010 9:58 AM CDT Domitila Ashby FOOT DOCTOR, DECISION SUPPORT ANALYST LAB_1 Performing Organization Address City/State/[facility] Co de Phone Number [facility] [address] [address] * (ABNORMAL) LIPID PANEL AND DIRECT LDL(IF NEEDED) (08/07/2009 8:39 AM CDT) Cholesterol 201(H) 0 - 199 mg/dl [facility] Triglyceride 62 0 - 149 mg/dl [facility] HDL 64 >40 mg/dl [facility] LDL, Calc. 123 0 - 129 mg/dl [facility] Hours Fasting 12 hours [facility] 08/07/2009 8:39 AM CDT 08/07/2009 8:50 AM CDT Marco A Santana MD LAB_1 Performing Organization Address City/State/[facility] Co de Phone Number [facility] [address] [address] * COLONOSCOPY [[id number]] (01/27/2008 9:35 AM NEEDLE PROCESS FELT GOODS SUPERVISOR) URL Link [facility] ([facility]) 01/27/2008 9:35 AM NEEDLE PROCESS FELT GOODS SUPERVISOR Narrative [facility] ([facility]) - 01/27/2008 10:39 AM NEEDLE PROCESS FELT GOODS SUPERVISOR Indications: ? Average risk colon CA screen: Colon cancer in distant ? relative(s) 60 or older, High risk colon cancer ? screening: Family history of adenomatous polyps Providers: ? Natan Lamas MD, Galdino Chavez RN Referring MD: ?Marco A Santana MD Medicines: ? Fentanyl IV 100 mcgs, Versed/Midazolam IV 2 mgs Complications: ? No immediate complications Procedure: ? - Prior to the procedure, a History and Physical was ? performed, and patient medications and allergies were ? reviewed. The patient is competent. The risks and ? benefits of the procedure and the sedation options ? and risks were discussed with the patient. All ? questions were answered and informed consent was ? obtained. Patient identification and proposed ? procedure were verified by the physician and the ? nurse. Mental Status Examination: normal. Airway ? Examination: Mallampati Class II (the uvula but not ? tonsillar pillars visualized). Respiratory ? Examination: clear to auscultation. CV Examination: ? RRR, no murmurs, no S3 or S4. ASA Grade Assessment: I ? - A normal, healthy patient. After reviewing the ? risks and benefits, the patient was deemed in ? satisfactory condition to undergo the procedure. The ? anesthesia plan was to use moderate sedation / ? analgesia (conscious sedation). Immediately prior to ? administration of medications, the patient was ? re-assessed for adequacy to receive sedatives. The ? heart rate, respiratory rate, oxygen saturations, ? blood pressure, adequacy of pulmonary ventilation, ? and response to care were monitored throughout the ? procedure. The physical status of the patient was ? re-assessed after the procedure. ? After I obtained informed consent, the scope was ? passed under direct vision. Prior to sedation, ? patient identity and procedure was reverified. ? Throughout the procedure, the patient's blood ? pressure, pulse, and oxygen saturations were ? monitored continuously. The colonoscope was ? introduced through the anus and advanced to the ? terminal ileum, with identification of the ? appendiceal orifice and IC valve. The colonoscopy was ? performed with ease. The patient tolerated the ? procedure well. The quality of the bowel preparation ? was good. Findings: ? The digital rectal exam was normal. Pertinent negatives include no ? palpable rectal lesions. Internal, non-bleeding, small to ? medium-sized hemorrhoids were found during retroflexion. The exam was ? otherwise normal throughout the examined colon.The terminal ileum ? appeared normal. The exam was otherwise without abnormality. Impression: ?- Normal digital-rectal examination. ? - Non bleeding, small to medium-sized, internal ? hemorrhoids. ? - The examined portion of the ileum was normal. ? - Mother and father with colon polyps. Recommendation: ?- High fiber diet. ? - Repeat colonoscopy in 7 years for screening ? purposes. ? - Warm sitz bath and/or hydrocortisone 1% cream for ? hemorrhoids prn. CPT Codes(s): ?G0105, Colorectal cancer screening; colonoscopy on ? individual at high risk ICD9 Code(s): ?V18.51, Family history of colonic polyps ? V16.0, Family history of malignant neoplasm of ? gastrointestinal tract ? V76.51, Special screening for malignant neoplasms, ? colon CPT?? 2007 [employer]. All Rights Reserved. No fee schedules, basic units, relative values or related listings are included in CPT. AMA does not directly or indirectly practice medicine or dispense medical services. A assumes no liability for data contained or not contained herein. CPT is a registered trademark of the [employer]. The codes documented in this report are preliminary and upon victims advocate clerk/specialist review may be revised to meet current compliance requirements. Attending Participation: Natan Lamas MD Signed Date: 01/27/2008 10:39 AM Number of Addenda: 0 Note initiated on 01/27/2008 9:36 AM Procedure Note Adams Natan Post Jr. - 01/27/2008 Indications: Average risk colon CA screen: Colon cancer in distant relative(s) 60 or older, High risk colon cancer screening: Family history of adenomatous polyps Providers: Natan Lamas MD, Galdino Chavez RN Referring MD: Marco A Santana MD Medicines: Fentanyl IV 100 mcgs, Versed/Midazolam IV 2 mgs Complications: No immediate complications Procedure: - Prior to the procedure, a History and Physical was performed, and patient medications and allergies were reviewed. The patient is competent. The risks and benefits of the procedure and the sedation options and risks were discussed with the patient. All questions were answered and informed consent was obtained. Patient identification and proposed procedure were verified by the physician and the nurse. Mental Status Examination: normal. Airway Examination: Mallampati Class II (the uvula but not tonsillar pillars visualized). Respiratory Examination: clear to auscultation. CV Examination: RRR, no murmurs, no S3 or S4. ASA Grade Assessment: I - A normal, healthy patient. After reviewing the risks and benefits, the patient was deemed in satisfactory condition to undergo the procedure. The anesthesia plan was to use moderate sedation / analgesia (conscious sedation). Immediately prior to administration of medications, the patient was re-assessed for adequacy to receive sedatives. The heart rate, respiratory rate, oxygen saturations, blood pressure, adequacy of pulmonary ventilation, and response to care were monitored throughout the procedure. The physical status of the patient was re-assessed after the procedure. After I obtained informed consent, the scope was passed under direct vision. Prior to sedation, patient identity and procedure was reverified. Throughout the procedure, the patient's blood pressure, pulse, and oxygen saturations were monitored continuously. The colonoscope was introduced through the anus and advanced to the terminal ileum, with identification of the appendiceal orifice and IC valve. The colonoscopy was performed with ease. The patient tolerated the procedure well. The quality of the bowel preparation was good. Findings: The digital rectal exam was normal. Pertinent negatives include no palpable rectal lesions. Internal, non-bleeding, small to medium-sized hemorrhoids were found during retroflexion. The exam was otherwise normal throughout the examined colon.The terminal ileum appeared normal. The exam was otherwise without abnormality. Impression: - Normal digital-rectal examination. - Non bleeding, small to medium-sized, internal hemorrhoids. - The examined portion of the ileum was normal. - Mother and father with colon polyps. Recommendation: - High fiber diet. - Repeat colonoscopy in 7 years for screening purposes. - Warm sitz bath and/or hydrocortisone 1% cream for hemorrhoids prn. CPT Codes(s): G0105, Colorectal cancer screening; colonoscopy on individual at high risk ICD9 Code(s): V18.51, Family history of colonic polyps V16.0, Family history of malignant neoplasm of gastrointestinal tract V76.51, Special screening for malignant neoplasms, colon CPT?? 2007 [employer]. All Rights Reserved. No fee schedules, basic units, relative values or related listings are included in CPT. AMA does not directly or indirectly practice medicine or dispense medical services. AMA assumes no liability for data contained or not contained herein. CPT is a registered trademark of the [employer]. The codes documented in this report are preliminary and upon victims advocate clerk/specialist review may be revised to meet current compliance requirements. Attending Participation: Natan Lamas MD Signed Date: 01/27/2008 10:39 AM Number of Addenda: 0 Note initiated on 01/27/2008 9:36 AM Natan Lamas Jr., MD DIGESTIVE CARE Performing Organization Address [facility] Co de Phone Number [facility] ([facility]) [place], [place] * HEPATITIS C AB (02/03/2001 10:08 AM NEEDLE PROCESS FELT GOODS SUPERVISOR) Anti-HCV Negative Does Not Rule Out Infection with HCV NEG [facility] 02/03/2001 10:0 8 AM NEEDLE PROCESS FELT GOODS SUPERVISOR 02/03/2001 10:09 AM NEEDLE PROCESS FELT GOODS SUPERVISOR Jkai Bautista MD LAB_1 Performing Organization Address [facility] Co de Phone Number [facility] [address] [address] from Last 3 Months or Most Recently Relevant to Health Maintenance Advance Directives * Full Code (Latest Code Status on File) Date Activated Date Inactivated Comments 09/26/2009 11:02 AM 09/26/2009 2:57 PM Care Teams Television Repairman Relationship Specialty Start Date End Date Rani Faulkner MD [address] [place] [address] PCP - General Internal Medicine 11/28/16
--- OUTSIDE RECORDS SUMMARY | 2023-09-10 15:01 | XMS_ITS | Encounter Summary ---
Author Organization [facility] Address [address] [place] [address] Care Team Providers Care Plastics Worker Name Role Phone Elsewhere, Pcp Primary Care Provider Unavailabl e Reason for Visit * Reason Onset Date Comments Med Refill Meds: Nutrition 07/27/2023 phentermine-topi ramate (Qsymia) 15-92 mg capsule Encounter Details Date Type Department Care Team (Late st Contact Info) Description 07/27/2023 Refill Division of Endocrinology in [place], [place] [address] [place] [phone] Cooper Kessler APRN, C.N.P., D.N.P. [address] [place] [phone] Med Refill; Meds: Nutrition (phentermine-topiramate (Qsymia) 15-92 mg capsule) Social History Tobacco Use Types Packs/Day Years [...] How often do you attend chur or nondenominational services? More than 4 times per year 06/21/2022 Do you belong to any clubs o r organizations such as adventism groups, unions, fraternal or athletic groups, or [...] and heating? Not hard at all 06/21/2022 [facility] - [...] place to sleep or slept in a skilled nursing (including now)? No 06/21/2022 Nutrition Answer Date [...] Sex Assigned at Female 01/01/2021 8:40 AM BEARING MAKER Gender Identity Female 01/01/2021 8:40 AM BEARING MAKER Sexual Orientation Straight 01/01/2021 8: 40 AM BEARING MAKER documented as of this encounter Plan of Treatment Upcoming Encounters Date Type Department Care Team (Late st Contact Info) Description 10/20/2023 4:00 PM CDT Telemedicine Division of Endocrinology in [place], [place] [address] [place] [address] Cooper Kessler APRN, C.N.P., D.N.P. [address] [place] [address] documented as of this encounter Visit Diagnoses Not on filedocumented in this encounter Care Teams Plastics Worker Relationship Specialty Start Date End Date Elsewhere, Pcp PCP - General Internal Medicine 04/16/21 documented as of this encounter
--- OUTSIDE RECORDS SUMMARY | 2023-09-10 15:01 | XMS_ITS | Encounter Summary ---
Author Organization [employer] Address [address], [place] [address] Care Team Providers Care Radiation Therapy Technologist Name Role Phone Rani Faulkner MD Primary Care Provider +1- [phone] Encounter Details Date Type Department Care Team (Latest Contact Info) Description 03/23/1997 Orders Only Kathy Camacho Social [...] on filedocumented in this encounter Care Teams Radiation Therapy Technologist Relationship Specialty Start Date End Date Rani Faulkner MD [address] [place] [address] PCP - General Internal Medicine 11/28/16 documented as of this encounter
--- OUTSIDE RECORDS SUMMARY | 2023-09-10 15:01 | XMS_ITS | Encounter Summary ---
Author Organization [facility] Address [address] [place] [address] Care Team Providers Care Security Assurance Specialist Name Role Phone Elsewhere, Pcp Primary Care Provider Unavailabl e Reason for Visit * Reason Comments Med Refill Encounter Details Date Type Department Care Team ([facility] st Contact Info) Description 09/01/2023 Refill Division of Endocrinology in [place], [place] [address] [place] [phone] Cooper Kessler APRN, C.N.P., D.N.P. [address] [place] [phone] Med Refill Social History Tobacco Use Types [...] often do you attend chur ch or orthodox services? More than 4 times per year 06/21/2022 Do you belong to any clubs o r organizations such as mosque groups, unions, fraternal or athletic groups, or [...] and heating? Not hard at all 06/21/2022 [facility] Occupat ional Health - Occupational Stress [...] Sex Assigned at Female 01/01/2021 8:40 AM PATTERNMAKER METAL BENCH Gender Identity Female 01/01/2021 8:40 AM PATTERNMAKER METAL BENCH Sexual Orientation Straight 01/01/2021 8: 40 AM PATTERNMAKER METAL BENCH documented as of this encounter Plan of Treatment Upcoming Encounters Date Type Department Care Team (Late st Contact Info) Description 10/20/2023 4:00 PM CDT Telemedicine Division of Endocrinology in [place], [place] [address] [place] [address] Cooper Kessler APRN, C.N.P., D.N.P. [address] [place] [address] documented as of this encounter Visit Diagnoses Diagnosis Obesity Body Mass Index 30-39.9 Adult- Primary documented in this encounter Care Teams Security Assurance Specialist Relationship Specialty Start Date End Date Elsewhere, Pcp PCP - General Internal Medicine 04/16/21 documented as of this encounter
--- OUTSIDE RECORDS SUMMARY | 2023-09-10 15:01 | XMS_ITS ---
Author Organization [facility] Address [address] [place] [address] Care Team Providers Care Lean Manufacturing Specialist Name Role Phone Unavailable Unavailable Unavailable Surgery Details Not on file Complications Check Surgery Details section. Procedure Estimated Blood Loss Check Surgery Details section. Procedure Findings Check Surgery Details section. Procedure Specimens Taken Check Surgery Details section.
--- OUTSIDE RECORDS SUMMARY | 2023-09-10 15:01 | XMS_ITS | Encounter Summary ---
Author Organization [employer] Address [address], [place] [address] Care Team Providers Care Delivery Crew Member Name Role Phone Rani Faulkner MD Primary Care Provider +1- [phone] Encounter Details Date Type Department Care Team (Latest Contact Info) Description 06/11/1998 Orders Only Max Gomez MD [...] on filedocumented in this encounter Care Teams Delivery Crew Member Relationship Specialty Start Date End Date Rani Faulkner MD [address] [place] [address] PCP - General Internal Medicine 11/28/16 documented as of this encounter
--- OUTSIDE RECORDS SUMMARY | 2023-09-10 15:02 | XMS_ITS | Encounter Summary ---
Author Organization [email or web address] Address [address], [place] [address] Care Team Providers Care Inside Plant Supervisor Name Role Phone Rani Faulkner MD Primary Care Provider +1- [phone] Encounter Details Date Type Department Care Team (Latest Contact Info) Description 02/19/1995 Orders Only Kathy Camacho Social [...] on filedocumented in this encounter Care Teams Inside Plant Supervisor Relationship Specialty Start Date End Date Rani Faulkner MD [address] [place] [address] PCP - General Internal Medicine 11/28/16 documented as of this encounter
--- OUTSIDE RECORDS SUMMARY | 2023-09-10 15:02 | XMS_ITS | Encounter Summary ---
Author Organization [employer] Address [address], [place] [address] Care Team Providers Care Engine Inspector Name Role Phone Rani Faulkner MD Primary Care Provider +1- [phone] Encounter Details Date Type Department Care Team (Late st Contact Info) Description 04/17/1995 Orders Only [address] [address] Angela Darden MD Social History Tobacco Use [...] on filedocumented in this encounter Care Teams Engine Inspector Relationship Specialty Start Date End Date Rani Faulkner MD [address] [place] [address] PCP - General Internal Medicine 11/28/16 documented as of this encounter
--- OUTSIDE RECORDS SUMMARY | 2023-09-10 15:02 | XMS_ITS | Encounter Summary ---
Author Organization [employer] Address [address] [address] Care Team Providers Care Remote Recruiter Name Role Phone Rani Faulkner MD Primary Care Provider +1- [phone] Encounter Details Date Type Department Care Team (Latest Contact Info) Description 04/21/1994 Orders Only Guillermo Benton MD [address] [place] [address] Social History Tobacco Use Types Packs/Day Years Used Date Smoking Tobacco: Never Assessed Sex and Gender Information Value Date Recorded Sex Assigned at Not on file Gender Identity Not on file Sexual Orientation Not on file documented as of this encounter Plan of Treatment Not on file documented as of this encounter Visit Diagnoses Not on filedocumented in this encounter Care Teams Remote Recruiter Relationship Specialty Start Date End Date Rani Faulkner MD [address] [place] [address] PCP - General Internal Medicine 11/28/16 documented as of this encounter
--- OUTSIDE RECORDS SUMMARY | 2023-09-10 15:02 | XMS_ITS | Encounter Summary ---
Author Organization [employer] Address [address] [place] [address] Care Team Providers Care Braiding Operator Name Role Phone Rani Faulkner MD Primary Care Provider +1- [phone] Encounter Details Date Type Department Care Team (Latest Contact Info) Description 05/04/1995 Orders Only Kathy Camacho Social [...] on filedocumented in this encounter Care Teams Braiding Operator Relationship Specialty Start Date End Date Rani Faulkner MD [address] [place] [address] PCP - General Internal Medicine 11/28/16 documented as of this encounter
--- OUTSIDE RECORDS SUMMARY | 2023-09-10 15:02 | XMS_ITS | Encounter Summary ---
Author Organization [employer] Address [address] [address] Care Team Providers Care Metal Fabricating Shop Helper Name Role Phone Rani Faulkner MD Primary Care Provider +1- [phone] Encounter Details Date Type Department Care Team (Latest Contact Info) Description 11/15/1996 Orders Only Kathy Camacho Social [...] on filedocumented in this encounter Care Teams Metal Fabricating Shop Helper Relationship Specialty Start Date End Date Rani Faulkner MD [address] [place] [address] PCP - General Internal Medicine 11/28/16 documented as of this encounter
--- OUTSIDE RECORDS SUMMARY | 2023-09-10 15:02 | XMS_ITS | Encounter Summary ---
Author Organization [employer] Address [address], [place] [address] Care Team Providers Care Regional Sales Consultant Name Role Phone Rani Faulkner MD Primary Care Provider +1- [phone] Encounter Details Date Type Department Care Team (Latest Contact Info) Description 12/16/1996 Orders Only Max Gomez MD [...] on filedocumented in this encounter Care Teams Regional Sales Consultant Relationship Specialty Start Date End Date Rani Faulkner MD [address] [place] [address] PCP - General Internal Medicine 11/28/16 documented as of this encounter
--- OUTSIDE RECORDS SUMMARY | 2023-09-10 15:02 | XMS_ITS | Clinical Summary ---
Author Organization [employer] [facility] Address [place], [place] [address] Care Team Providers Care Amusement Park Ride Mechanic Name Role Phone Rani Faulkner MD Primary Care Provider +1- [phone] Allergies Active Allergy Reactions Criticality Noted Date [...] Health Maintenance Due Date Last Done Comments Tdap 1968 Depression screening for age 12+ 1969 BMI (ht and wt on same day) for age 18+ 05/11/1975 Hepatitis C screening for age 18-79 05/11/1975 Tetanus booster 1977 Colonoscopy through age 75 2002 Lipids for age 45-75 2002 Mammogram for age 45-75 2002 Zoster (shingles) series for age 50+ (1 of 2) 05/11/19 08 DEXA/DXA scan for age 65+ 2022 Pneumococcal series for age 65+ (1 of 1 - PCV) 023 COVID-19 vaccine series (1 - 2022-24 season) 3 Influenza for age 65+ 10/18/2023 Care Teams Amusement Park Ride Mechanic Relationship Specialty Start Date End Date Rani Faulkner MD [address] [place] [address] PCP - General Internal Medicine 08/23/14
--- OUTSIDE RECORDS SUMMARY | 2023-09-10 15:02 | XMS_ITS | Encounter Summary ---
Author Organization [employer] Address [address], [place] [address] Care Team Providers Care Explosive Ordnance Disposal Technician Name Role Phone Rani Faulkner MD Primary Care Provider +1- [phone] Encounter Details Date Type Department Care Team (Latest Contact Info) Description 03/18/1994 Orders Only Guillermo Benton MD [address] [place] [address] Social History Tobacco Use Types Packs/Day Years Used Date Smoking Tobacco: Never Assessed Sex and Gender Information Value Date Recorded Sex Assigned at Not on file Gender Identity Not on file Sexual Orientation Not on file documented as of this encounter Plan of Treatment Not on file documented as of this encounter Visit Diagnoses Not on filedocumented in this encounter Care Teams Explosive Ordnance Disposal Technician Relationship Specialty Start Date End Date Rani Faulkner MD [address] [place] [address] PCP - General Internal Medicine 11/28/16 documented as of this encounter
--- OUTSIDE RECORDS SUMMARY | 2023-09-10 15:02 | XMS_ITS | Encounter Summary ---
Author Organization [employer] Address [address] [address] Care Team Providers Care Magazine Feeder Name Role Phone Rani Faulkner MD Primary Care Provider +1- [phone] Encounter Details Date Type Department Care Team (Latest Contact Info) Description 01/17/1997 Orders Only Max Gomez MD [...] on filedocumented in this encounter Care Teams Magazine Feeder Relationship Specialty Start Date End Date Rani Faulkner MD [address] [place] [address] PCP - General Internal Medicine 11/28/16 documented as of this encounter
--- OUTSIDE RECORDS SUMMARY | 2023-09-10 15:02 | XMS_ITS | Encounter Summary ---
Author Organization [employer] Address [address] [address] Care Team Providers Care Plan Nurse Name Role Phone Rani Faulkner MD Primary Care Provider +1- [phone] Encounter Details Date Type Department Care Team (Latest Contact Info) Description 01/18/1997 Orders Only Kathy Camacho Social [...] on filedocumented in this encounter Care Teams Plan Nurse Relationship Specialty Start Date End Date Rani Faulkner MD [address] [place] [address] PCP - General Internal Medicine 11/28/16 documented as of this encounter
== END 2023-09-10 15:00 | disposition home or self-care (01) ==
LOC: MAMMO 14:59
PROVIDERS: PCP Internal Medicine; Visit Provider Internal Medicine
DX: Z12.31 Encounter for screening mammogram for malignant neoplasm of breast (principal)
CPT/HCPCS: 77063; 77067

== ENCOUNTER 2023-11-02 06:30 | Day surgery (SDC) | payer MEDICARE, SELFPAY ==
--- OUTSIDE RECORDS SUMMARY | 2023-11-02 06:33 | XMS_ITS | Encounter Summary ---
Author Organization [facility] Address [address] [place] [address] Care Team Providers Care Oracle Database Architect Name Role Phone Elsewhere, Pcp Primary Care Provider Unavailabl e Encounter Details Date Type Department Care Team (Latest Contact Info) Description 10/14/2023 3:15 PM CDT Clinical Communication Virtual Review in [place], [place] [address] [place] [address] Social History Tobacco Use Types Packs/Day Years Used Date Smoking Tobacco: Never Smokeless Tobacco: Never Comments:one parent was a sm oker Alcohol Use Standard Drinks/Week Comments Yes 12 (1 standard drink = 0.6 oz pu re alcohol) [facility] Utilities Answer Date Recorded In the past 12 months has [facility] [employer], gas, oil, or water [employer] threatened to shut off services in your home? No 10/17/2023 Humiliation, Afraid, Rape, and Kick questionnair e [...] often do you attend chur ch or latter-day services? More than 4 times per year 06/21/2022 Do you belong to any clubs o r organizations such as evangelical groups, unions, fraternal or athletic groups, or [...] and heating? Not hard at all 06/21/2022 [facility] [place] of Occupat ional Health - Occupational Stress [...] to strenuous exercise (like a brisk walk)? 3 days 10/17/2023 On average, how many minutes do you engage in exercise at this level? 50 min 10/17/2023 Hunger Vital Sign Answer Date Recorded Within the past 12 months, y ou worried that your food would run out before you got the money to buy more. Never true 10/17/19 24 Within the past 12 months, t he food you bought just didn't last and you didn't have money to get more. Never true 10/17/2023 PRAPARE - Transportation Answer Date Re corded In the past 12 months, has l ack of transportation kept you from medical appointments or from getting medications? No 09/18 In the past 12 months, has l ack of transportation kept you from meetings, work, or from getting things needed for daily living? No 10/17/2023 Nutrition Answer Date Recorded On average, how many serving s of fruits and vegetables do you eat per day (serving size is equal to 1 cup or approximately the size of a tennis ball)? 3-5 10/17/2023 Dental Answer Date Recorded Dental: Regular Dentist Yes 08/24/19 21 Employment Answer Date Recorded Employment status Retired 10/17/2023 Housing Stability Answer Date Recorded What is your living situation today? I have a [facility] place to live 10/17/2023 Education Answer Date Recorded What is the highest level of school you have completed or the highest degree you have received? Doctorate 08/23/2020 Sex and Gender Information Value Date Recorded Sex Assigned at Female 01/01/2021 8:40 AM INSOLE STIFFENER Gender Identity Female 01/01/2021 8:40 AM INSOLE STIFFENER Sexual Orientation Straight 01/01/2021 8: 40 AM INSOLE STIFFENER documented as of this encounter Plan of Treatment Not on file documented as of this encounter Visit Diagnoses Not on filedocumented in this encounter Care Teams Oracle Database Architect Relationship Specialty Start Date End Date Elsewhere, Pcp PCP - General Internal Medicine 04/16/21 documented as of this encounter
--- OUTSIDE RECORDS SUMMARY | 2023-11-02 06:33 | XMS_ITS | Encounter Summary ---
Author Organization [employer] Address [address] [place] [address] Care Team Providers Care Rf Technician Name Role Phone Rani Faulkner MD Primary Care Provider +1- [phone] Encounter Details Date Type Department Care Team [...] on filedocumented in this encounter Care Teams Rf Technician Relationship Specialty Start Date End Date Rani Faulkner MD [address] [place] [address] PCP - General Internal Medicine 11/28/16 documented as of this encounter
--- OUTSIDE RECORDS SUMMARY | 2023-11-02 06:33 | XMS_ITS | Encounter Summary ---
Author Organization [facility] Address [address] [place] [address] Care Team Providers Care Internal Sales Engineer Name Role Phone Elsewhere, Pcp Primary Care Provider Unavailabl e Reason for Visit * Reason Comments Med Refill Encounter Details Date Type Department Care Team (Late st Contact Info) Description 09/01/2023 Refill Division of Endocrinology in [place], [place] [address] [place] [phone] Cooper Kessler APRN, C.N.P., D.N.P. [address] [place] [phone] Med Refill Social History Tobacco Use Types [...] and heating? Not hard at all 06/21/2022 [facility] of Occupat ional Health - Occupational [...] Sex Assigned at Female 01/01/2021 8:40 AM CHARHOUSE WORKER Gender Identity Female 01/01/2021 8:40 AM CHARHOUSE WORKER Sexual Orientation Straight 01/01/2021 8: 40 AM CHARHOUSE WORKER documented as of this encounter Plan of Treatment Not on file documented as of this encounter Visit Diagnoses Diagnosis Obesity Body Mass Index 30-39.9 Adult- Primary documented in this encounter Care Teams Internal Sales Engineer Relationship Specialty Start Date End Date Elsewhere, Pcp PCP - General Internal Medicine 04/16/21 documented as of this encounter
--- OUTSIDE RECORDS SUMMARY | 2023-11-02 06:33 | XMS_ITS | Encounter Summary ---
Author Organization [employer] Address [address] [place] [address] Care Team Providers Care Deployment Manager Name Role Phone Rani Faulkner MD Primary Care Provider +1- [phone] Encounter Details Date Type Department Care Team (Late st Contact Info) Description 08/28/1999 Orders Only [facility] [address] [place] [address] Omer Sharma MD [address] [place] [address] Social History Tobacco Use Types Packs/Day Years Used Date Smoking Tobacco: Never Assessed Sex and Gender Information Value Date Recorded Sex Assigned at Not on file Gender Identity Not on file Sexual Orientation Not on file documented as of this encounter Plan of Treatment Not on file documented as of this encounter Visit Diagnoses Not on filedocumented in this encounter Care Teams Deployment Manager Relationship Specialty Start Date End Date Rani Faulkner MD [address] [place] [address] PCP - General Internal Medicine 11/28/16 documented as of this encounter
--- OUTSIDE RECORDS SUMMARY | 2023-11-02 06:33 | XMS_ITS | Encounter Summary ---
Author Organization [facility] Address [address] [place] [address] Care Team Providers Care Roller Presser Operator Name Role Phone Elsewhere, Pcp Primary Care Provider Unavailabl e Reason for Visit * Reason Onset Date Comments Med Refill Meds: Nutrition 07/27/2023 phentermine-topi ramate (Qsymia) 15-92 mg capsule Encounter Details Date Type Department Care Team (Late st Contact Info) Description 07/27/2023 Refill Division of Endocrinology in [place], [place] [address] [place] [phone] Cooper Kessler APRN, C.N.P., D.N.P. [address] [place] [phone] Med Refill; Meds: Nutrition (phentermine-topiramate (Qsymia) 15-92 [...] How often do you attend chur or religion services? More than 4 times per year 06/21/2022 Do you belong to any clubs o r organizations such as voodoo groups, unions, fraternal or athletic groups, or [...] and heating? Not hard at all 06/21/2022 [facility] of Occupat ional Health - Occupational [...] Sex Assigned at Female 01/01/2021 8:40 AM FACE HARDENER Gender Identity Female 01/01/2021 8:40 AM FACE HARDENER Sexual Orientation Straight 01/01/2021 8: 40 AM FACE HARDENER documented as of this encounter Plan of Treatment Not on file documented as of this encounter Visit Diagnoses Not on filedocumented in this encounter Care Teams Roller Presser Operator Relationship Specialty Start Date End Date Elsewhere, Pcp PCP - General Internal Medicine 04/16/21 documented as of this encounter
--- OUTSIDE RECORDS SUMMARY | 2023-11-02 06:33 | XMS_ITS | Clinical Summary ---
Author Organization [facility] Address [address] [place] [address] Care Team Providers Care Community Coordinator For High School Name Role Phone Elsewhere, Pcp Primary Care Provider Unavailabl e Source Comments Patient records contain information from all sites at [facility]. For routine questions regarding patient records, call [phone] during business hours, M-F 8:00 AM - 5:00 PM Central Time. Record requests for emergency care only can be directed to [phone] at any time.[facility] Allergies Active Allergy Reactions Criticality Noted Date [...] fluticasone propionate (FLONASE) 50 mcg/actuation nasal spray 2 sprays daily. 09/08/2013 Active fluticasone propionate (FLOVENT HFA) 110 mcg/actuation inhaler Inhale 2 puffs 2 (two) times a day. 08/02/2012 Active levothyroxine (SYNTHROID, LEVOTHROID) 150 mcg tablet Take 150 mcg by mouth as directed. Take one tablet daily Thursday through Thursday and .5 tablet sat and sun 08/02/2012 Active montelukast (SINGULAIR) 10 mg tablet Take 10 mg by mouth at bedtime. 05/25/2020 Active phentermine-topir amate (Qsymia) 15-92 mg capsule, ER multiphase 24 hr ER capsuleIndication s:Obesity Body Mass Index 30-39.9 Adult Take 1 capsule by mouth daily before morning meal. 30 capsule 5 10/20/2023 Active phentermine-topir amate (Qsymia) 15-92 mg capsule, ER multiphase 24 hr ER capsuleIndication s:Obesity Body Mass Index 30-39.9 Adult Take 1 capsule by mouth daily before morning meal. 30 capsule 2 09/01/2023 10/20/2023 Discontinued phentermine-topir amate (Qsymia) 11.25-69 mg capsule, ER multiphase 24 hr ER capsuleIndication s:Obesity Body Mass Index 30-39.9 Adult Take 1 capsule by mouth daily. 14 capsule 09/01/2023 10/20/2023 Discontinued Active Problems Problem Noted Date Diagnosed Date Obesity Body Mass Index 30-39.9 Adult 08/27/2020 Hypothyroidism Primary 08/27/2020 Osteoarthritis 08/27/2020 Asthma Mild Intermittent 08/27/2020 Asthma Encounters Date Type Department Care Team Description 10/20/2023 4:00 PM CDT Telemedicine Division of Endocrinology in [address] [phone] Cooper Kessler APRN, C.N.P., D.N.P. Overweight Body Mass Index 25-29.9 Adult (Primary Dx); Osteoarthritis; Asthma (HCC); Obesity Body Mass Index 30-39.9 Adult 10/14/2023 3:15 PM CDT Clinical Communication Virtual Review in [address] [phone] 09/01/2023 Refill Division of Endocrinology in [address] [phone] Cooper Kessler APRN, C.N.P., D.N.P. Med Refill from Last 3 Months Family History Medical History Relation Name Comments Arthritis Brother Abdirahman Turner Hyperlipidemia Brother Abdirahman Solimanjohn Hypertension Brother Abdirahman Solimanjohn Prostate cancer Brother Abdirahman Solimanjohn diagnosed i n his 60s Arthritis Father Natan Turner Hyperlipidemia Father Natan Turner Hypertension Father Natan Turner Prostate cancer Father Natan Turner diagnosed in his 70s Stroke Father Natan Turner Transient ischemic attack Father Natan Turner Diabetes Maternal Grandfather Karma Nelsonttmiriam Arthritis Maternal Grandmother Mayra Oetting Colon cancer Maternal Grandmother Mayra Turipn diagno sed in her 80s Diabetes Maternal Grandmother Mayra Oetting Obesity Maternal Grandmother Mayra Oetting Colon polyps Mother Florina Turner Hyperlipidemia Mother Florina Turner Hypertension Mother Florina Turner Breast cancer Mother's Sister 1 Turner Monacoaberyanneg di agnosed in her 80s Breast cancer Mother's Sister 2 Leola Waldemar diagnose d in her 50s Diabetes Paternal Grandfather Paxton Turner Obesity Paternal Grandfather Paxton Turner Arthritis Sister Terri Antonio Breast cancer Sister Terri Antonio diagnosis & lumpectomy 2020 Colon polyps Sister Etrri Paco Hyperlipidemia Sister Terri Paco Hypertension Sister Terri Paco Thyroid disease Sister Terri Antonio Hypothyroi dism Relation Name Status Comments Brother Abdirahman Turner Father Natan Turner Maternal Grandfather Karma Nelsontting Maternal Grandmother Mayra Oetting Mother Florina Turner Mother's Sister 1 Turner Monacoaberg Mother's Sister 2 Leola Waldemar Paternal Grandfather Paxton Turner Sister Terri Antonio Social History Tobacco Use Types Packs/Day Years Used Date Smoking Tobacco: Never Smokeless Tobacco: Never Tobacco Cessation:Counseling Given: Not Answered Comments:one parent was a smoker Alcohol Use Standard Drinks/Week Comments Yes 12 (1 standard drink = 0.6 oz pu re alcohol) [facility] Utilities Answer Date Recorded In the past 12 months has [facility] [employer], [employer], oil, or water [employer] threatened to shut off services in your [...] often do you attend chur ch or islam services? More than 4 times per year 06/21/2022 Do you belong to any clubs o r organizations such as congregation groups, unions, fraternal or athletic groups, or [...] when you are drinking? 1 or 2 Q3: How often do you have si x or more drinks on one occasion? Never 06/21/2022 Overall Financial Resource Strain (CARDIA) Answe r Date Recorded How hard is it for you to pa y for the very basics like food, housing, medical care, and heating? Not hard at all 06/21/2022 [facility] Occupat ional Health - [...] 08/24/19 Employment Answer Date Recorded Employment status Retired 10/17/2023 Housing Stability Answer Date Recorded What is your living situation today? I have a [facility] place to live 10/17/2023 Education Answer Date Recorded What is the highest level of school you have completed or the highest degree you have received? Doctorate 08/23/2020 Sex and Gender Information Value Date Recorded Sex Assigned at Female 01/01/2021 8:40 AM MEDICAL MALPRACTICE PARALEGAL Gender Identity Female 01/01/2021 8:40 AM MEDICAL MALPRACTICE PARALEGAL Sexual Orientation Straight 01/01/2021 8: 40 AM MEDICAL MALPRACTICE PARALEGAL Last Filed Vital Signs Vital Sign Reading Time Taken Comments Blood Pressure 133/83 03/05/2023 10:59 AM MEDICAL MALPRACTICE PARALEGAL Pulse 74 03/05/2023 10:59 AM MEDICAL MALPRACTICE PARALEGAL Temperature - - Respiratory Rate - - Oxygen Saturation - - Inhaled Oxygen Concentration - - Weight 85.7 kg (189 lb) 10/20/2023 4:03 PM CDT Height 169.5 cm (5' 6.73) 10/20/2023 4:03 PM CD T Body Mass Index 29.84 10/20/2023 4:03 PM CDT Plan of Treatment Health Maintenance Due [...] PHQ-2) 02/16/2023 Fall Risk Screen (Annual) 02/16/2023 Influenza Vaccine (#1) 2023 3, 12/11/2021, 12/27/2020, Additional history exists DTaP,Tdap,and Td Vaccines (3 - Td or Tdap) 02/19/2031 02/19/2021, 07/30/2010, 12/23/2002 Cervical Cancer Screening Discontinued 02/01/2018, Zoster Vaccines Completed 08/21/2018, 05/13/2018 Pneumococcal vaccine (65+ years) Completed 02/13/20, 01/05/2018 COVID-19 Vaccine Completed 07/10/2023, , 08/01/2022, Additional history exists Medical Devices Implanted Type Area Learning Disabilities Specialist Device Identifier Shelf Expiration Date Model / Serial / Lot Hardware E.G. Pins/Screws/Ro ds Hardware e.g. pins/screws/ rods Bilatera l: Foot Description:Hardware Knee Implant-06/17/19 18 Implanted:05/0 02/2017 (Quantity not on file) Knee Implant Left: Knee Ocular (Eye) Implant Ocular (Eye) Implant Bilatera l: Eye Description:Completed 1 week apart - February 2021 Care Teams Community Coordinator For High School Relationship Specialty Start Date End Date Elsewhere, Pcp PCP - General Internal Medicine 04/16/21
--- OUTSIDE RECORDS SUMMARY | 2023-11-02 06:33 | XMS_ITS | Encounter Summary ---
Author Organization [employer] Address [address] [place] [address] Care Team Providers Care Gas Meter Checker Name Role Phone Rani Faulkner MD Primary Care Provider +1- [phone] Encounter Details Date Type Department Care Team (Late st Contact Info) Description 1998 Orders Only [facility] Practice [address] [place] [address] Angela Darden MD Social History Tobacco Use [...] on filedocumented in this encounter Care Teams Gas Meter Checker Relationship Specialty Start Date End Date Rani Faulkner MD [address] [place] [address] PCP - General Internal Medicine 11/28/16 documented as of this encounter
--- OUTSIDE RECORDS SUMMARY | 2023-11-02 06:33 | XMS_ITS | Encounter Summary ---
Author Organization [facility] Address [address] [place] [address] Care Team Providers Care Railway Station Manager Name Role Phone Elsewhere, Pcp Primary Care Provider Unavailabl e Reason for Referral * Outpatient (Routine) - Authorized Specialty Diagnoses / Procedures Referred By Abhilash lyle Referred To Contact Endocrinology Diagnoses Overweight Body Mass Index 25-29.9 Adult Osteoarthritis Asthma (HCC) Cooper Kessler APRN C.N.P., D.N.P. [address] [place] [phone] [facility] Referral ID Status Reason Start Date Expiration Date V isits Requested Visits Authorized [id number] Authorized 10/20/2023 04/20/2025 1 1 Scheduling Instructions FACE TO FACE Reason for Visit * Outpatient (Routine) - Closed Specialty Diagnoses / Procedures Referred By Abhilash lyle Referred To Contact Endocrinology Diagnoses Obesity Body Mass Index 30-39.9 Adult Osteoarthritis Cooper Kessler APRN, C.N.P., D.N.P. [address] [place] [phone] [facility] Referral ID Status Reason Start Date Expiration Date Visits Re quested Visits Authorized [id number] Closed 03/05/2023 03/04/2026 1 1 Encounter Details Date Type Department Care Team (Latest Contact Info) Description 10/20/2023 4:00 PM CDT Telemedicine Division of Endocrinology in [place], [place] [address] [place] [address] Cooper Kessler APRN, C.N.P., D.N.P. 200 [place] [address] Overweight Body Mass Index 25-29.9 Adult (Primary Dx); Osteoarthritis; Asthma (HCC); Obesity Body Mass Index 30-39.9 Adult Social History Tobacco Use Types Packs/Day Years Used Date Smoking Tobacco: Never Smokeless Tobacco: Never Comments:one parent was a hollie andrews Alcohol Use Standard Drinks/Week Comments Yes 12 (1 standard drink = 0.6 oz pu re alcohol) [facility] Utilities Answer Date Recorded In the past 12 months has e [employer], gas, oil, or water [facility] threatened to shut off services in your [...] often do you attend chur ch or yarsani services? More than 4 times per year [...] and heating? Not hard at all 06/21/2022 [facility] Occupat ional [facility] - Occupational Stress Questionnaire Answer Date Recorded [...] your living situation today? I have a [facility] place to live 10/17/2023 Education Answer Date Recorded What is the highest level of school you have completed or the highest degree you have received? Doctorate 08/23/2020 Sex and Gender Information Value Date Recorded Sex Assigned at Female 01/01/2021 8:40 AM TRUCK SERVICE MANAGER Gender Identity Female 01/01/2021 8:40 AM TRUCK SERVICE MANAGER Sexual Orientation Straight 01/01/2021 8: 40 AM TRUCK SERVICE MANAGER documented as of this encounter Last Filed [...] Mass Index 29.84 10/20/2023 4:03 PM CDT documented in this encounter Progress Notes * Coopre Kessler APRN, C.N.P., D.N.P. - 10/20/2023 5:00 PM CDT SUBJECTIVE History of present illness: [facility]-up appointment for ongoing evaluation and assistance with weight loss while continuing to pursue efforts at weight loss. Today's visit was completed with audiovisual equipment virtually from provider's office to patient's home due to the COVID 19 pandemic. Patient consented to this service. Patient's self-reported weight was obtained and entered into the electronic medical record by the Provider at today's visit. Recent weight trend is as follows: Most recent weight: 10/20/23 85.7 kg 03/05/23 88.4 kg 12/02/22 86.5 kg 06/25/22 86.7 kg 04/01/22 88.4 kg Obesity related comorbidities include arthritis, asthma Current medications for weight management: Qsymia 15-92 mg Previous medications used for weight management: Qsymia at lower doses Medication adverse effects: Continues with dry mouth which has been chronic and the most annoying side effect for her. Positive effects of the medication include: overall decreased appetite Current dietary habits More cereal, less protein at breakfast like eggs. More garden vegetables and fresh fruits. Eggs andtoast 2-3 times weekly. May have a smoothie with nut butter and berries twice weekly. Lunch may be hummus, apple or grapes, with soup. Healthy snack in the afternoon. Evening meal may be a meat, vegetable. Beverages: water, coffee, wine, spindrift Current physical activity: Recently retired so now has moved out of her office at work and adjusting to this lifestyle. Bikinghas been more of a challenge due to the arthritis in her hands. Needs an ankle fusion soon, hoping to do that this winter, making swimming problematic. Can't hike as much as she would like. Pertinent review of systems otherwise grossly negative. The following portions of the patient's history were reviewed and updated as appropriate: visit questionnaire, allergies, current medications, family history, medical history, social history, surgical history, and problem list. OBJECTIVE VITAL SIGNS There were no vitals filed for this visit. ASSESSMENT / PLAN #1 Overweight Body Mass Index 25-29.9 Adult #2 Osteoarthritis #3 Asthma (HCC) #4 Obesity Body Mass Index 30-39.9 Adult - phentermine-topiramate (Qsymia) 15-92 mg capsule, ER multiphase 24 hr ER capsule; Take 1 capsule by mouth daily before morning meal., Starting Thu10/20/2023, Normal Other orders - Endocrinology office visit (clinic) - Endocrinology office visit (clinic); Future; Expected date: 04/18/2024 Medication management: She has done well with use of Qsymia to aid in weight loss efforts, and desires to continue on the medication. The dosage will remain the same. Refills will be sent to her pharmacy today for another 6 months. Follow up: Patient to follow up in 6 months with myself. WEIGHT LOSS MEDICATION INSTRUCTIONS: [facility] GLP1 SHORTAGE: There is a shortage of GLP1 medications. If unable to find the next higher dose, OK for staff to send refills at lower dose via Second Sign/ Co-Sign. If she is unable to find one, OK to for staff to change to alternate GLP-1 injectable medication via Second Sign/ Co-Sign. If she would like to switch to oral agents, we will address this at her follow up appointment, or she can reschedule to an earlier available appointment with our department to address. Ozempic, Mounjaro, Trulicity, Victoza, Byetta, and Rybelsus are not FDA approved for weight loss. SYMPTOMS: For patients taking medications for weight loss, if the patient cannot tolerate the medication due to side effects including gastrointestinal, mood, or other side effects, they can stop the medication. Medications with TOPIRAMATE or WELLBUTRIN can be taken either as 1/2 dose every day for 1 week, andthen stop, or every other day for 1 week and then stop. CHANGING MEDICATIONS: If the patient would like to start a new medication, restart an old medication, or change to a different medication, please schedule the patient for first available follow up appointment, unless noted in the plan that the patient is OK to start a medication at this time. The patient can otherwise wait until their regularly scheduled follow up appointment. MEDICATION COST: Weight loss medications are often not covered by insurance companies. For issues with cost of weight loss medications, patients should continue to look at Their insurance company to check coverage The medication's surgical services tech website for decreased copayment coupons, Different pharmacies for dominguez comparison. I personally spent a total of 20 minutes in vtf-mutj-ix-face time performing a review of the record, care coordination, documentation, and discussion with the patient as described above. documented in this encounter Plan of Treatment Scheduled Referrals Name Type Priority Associated Diagnoses Order Schedule Endocrinology office visit (clinic) Outpatient Referral Routine Overweight Body Mass Index 25-29.9 Adult Osteoarthritis Asthma (HCC) Expected: 04/18/2024 (Approximate), Expires: 01/18/2025 documented as of this encounter Visit Diagnoses Diagnosis Overweight Body Mass Index 25-29.9 Adult- Primary Osteoarthritis Asthma (HCC) Obesity Body Mass Index 30-39.9 Adult documented in this encounter Care Teams Railway Station Manager Relationship Specialty Start Date End Date Elsewhere, Pcp PCP - General Internal Medicine 04/16/21 documented as of this encounter
--- OUTSIDE RECORDS SUMMARY | 2023-11-02 06:33 | XMS_ITS | Encounter Summary ---
Author Organization [employer] Address [address] [place] [address] Care Team Providers Care Stable Hand Name Role Phone Rani Faulkner MD Primary Care Provider +1- [phone] Encounter Details Date Type Department Care Team [...] on filedocumented in this encounter Care Teams Stable Hand Relationship Specialty Start Date End Date Rani Faulkner MD [address] [place] [address] PCP - General Internal Medicine 11/28/16 documented as of this encounter
--- OUTSIDE RECORDS SUMMARY | 2023-11-02 06:33 | XMS_ITS | Encounter Summary ---
Author Organization [employer] Address [address] [place] [address] Care Team Providers Care Outreach Assistant Name Role Phone Rani Faulkner MD Primary Care Provider +1- [phone] Encounter Details Date Type Department Care Team (Late st Contact Info) Description 06/18/1999 Orders Only [facility] [address] [place] [address] Angela Darden MD Social History Tobacco Use [...] on filedocumented in this encounter Care Teams Outreach Assistant Relationship Specialty Start Date End Date Rani Faulkner MD [address] [place] [address] PCP - General Internal Medicine 11/28/16 documented as of this encounter
--- OUTSIDE RECORDS SUMMARY | 2023-11-02 06:33 | XMS_ITS | Clinical Summary ---
Author Organization [facility] Address [address] [place] [address] Care Team Providers Care Carpenter Ship Name Role Phone Rani Faulkner MD Primary Care Provider +1- [phone] Source Comments You are receiving this document as you are listed as the primary care provider,follow-up provider, or the patient has been referred to you for consultation.This is in compliance with the Medicare and[facility] EHR Incentive Program,which states Providers who transition their patient to another setting of careor provider of care or refers their patient to another provider of care shouldprovide summary care record for each transition of care or referral. Diarize Allergies No known active allergies Medications Medication [...] Date Diagnosed Date Hallux valgus, acquired 09/30/2004 Overview (11/16/2014): Epic Hammer toe, acquired 07/26/2004 Overview (10/08/2016): Other hammer toe (acquired) Follow-up examination following surgery 07/27/19 05 Overview (11/16/2014): Epic Allergic rhinitis 09/06/2001 Overview (11/16/2014): genny and Zyrtec Epic Premenstrual tension syndrome 09/06/2001 Overview (11/16/2014): Epic Hypothyroidism 09/03/2001 Overview (11/16/2014): levothyroxin .200mg QD Epic Excessive or frequent menstruation 09/03/2001 Overview (12/23/2002): controlled on narcisa Immunizations Name Administration Dates [...] Comments Blood Pressure 130/70 03/20/2011 9:24 AM MACHINE ENGINEER Pulse 74 03/20/2011 9:24 AM MACHINE ENGINEER Temperature 36.9 ??C (98.4 ??F) 03/20/2011 9:24 AM CS T Respiratory Rate 16 11/12/2010 1:28 PM CDT Oxygen Saturation 100% 03/22/2010 4:04 PM MACHINE ENGINEER Inhaled Oxygen Concentration - - Weight 116.1 kg (256 lb) 11/12/2010 1:28 PM CDT Height 171.5 cm (5' 7.5) 09/11/2010 9:44 AM CDT Body Mass Index 39.5 09/11/2010 9:44 AM CDT Plan of Treatment Health Maintenance Due Date Last Done Comments MTM Covered 1955 Adult Preventive Visit 07/31/2011 1, 09/14/2007, 09/09/2005, Additional history exists Cholesterol 08/07/2014 08/07/2009, 06/17, 07/31/2000 Colonoscopy 01/26/2015 01/27/2008, 01/27/2008 Mammogram 12/28/2018 12/28/2017, 11/16, 11/21/2015, Additional history exists DTaP/Tdap/Td (2 - Tdap) 07/30/2020 07/30/2010, 12/23 Pneumococcal 65+ Yrs (2 - PCV) 2022 01/05/2018 COVID-19 Vaccine (3 - season) 2023 06/01/2020, 05/04/2020 Influenza (#1) 2023 01/15/2020, 01/16, 03/02/2017, Additional history exists RSV (1 - 1-dose 75+ series) 2032 Hep C Screening (Preventive Services) Completed 02/03/2001 [...] this topic Medical Devices Implanted Type Area Chemistry Tutor Device Identifier Shelf Expiration Date Model / Serial / Lot Wire Maryse .045 - [id number] Implanted:Qty: 2 on 04/28/2007 at [facility] DEVICE Left: FOOT [employer] 71-102 / / K-Wire Thrd 9in .045 - [id number] Implanted:Qty: 1 on 04/28/2007 at [facility] DEVICE Left: FOOT Av[employer]ink [id number] / / Procedures Procedure Name Priority Date/Time Associated Diagnosis Comments MM MAMMOGRAM SCREENING BILAT W CAD Routine 12/28/2017 4:11 PM MACHINE ENGINEER PAP TEST, ROUTINE Routine 07/30/2010 1:2 0 PM CDT Screening for malignant neoplasm of the cervix LIPID PANEL & DIRECT LDL (IF NEEDED) Routine 08/07/2009 8:39 AM CDT Screening Cholesterol Level COLONOSCOPY Routine 01/27/2008 9:35 AM MACHINE ENGINEER Screen for Colon Cancer HEPATITIS C ANTIBODY, WITH REFLEX Routine 02/03/2001 10:08 AM MACHINE ENGINEER from Last 3 Months or Most Recently Relevant to Health Maintenance Results * MM Mammogram Screening Bilat W CAD (12/28/2017 4:11 PM MACHINE ENGINEER) Anatomical Region Laterality Modality Breast Bilateral Mammography Impressions 12/29/2017 2:41 PM MACHINE ENGINEER : ACR BI-RADS Category 1: Negative RECOMMENDATION: Follow Up Imaging in 12 months - Bilateral The results and recommendations of this examination will be communicated to the patient. Narrative 12/29/2017 2:41 PM MACHINE ENGINEER MM MAMMOGRAM SCREENING BILAT W CAD performed [...] (07/30/2010 1:20 PM CDT) Cytology, Pap (NOTE) Icer Machine Operator Cytology Report Patient Name: DHARMESH TURNER Taken: 07/30/2010 Received: 07/31/2010 Reported: 08/09/2010 Physician(s): DOMITILA ASHBY ([id number]) ?Source of Specimen Liquid routine Pap, cervical/endocervi pauline: ?Specimen Adequacy ?Satisfactory for evaluation. ??Endocervical component absent. ? Final Cytologic Interpretation/Res ult NEGATIVE FOR INTRAEPITHELIAL LESION OR MALIGNANCY (NILM) ?Other Cytologic Findings ?Inflammation Electronically Signed Out By Dalila LOMAX(ASCP) Dalila Galeas CT(ASCP) ? Pap Smear History Date of Last Menstrual Period: 07/05/10 ?? Microscopic Description Microscopic examination is performed. [facility] 07/30/2010 1:20 PM CDT 07/31/2010 9:58 AM CDT Domitila Ashby JET AIRCRAFT SERVICER, VENDOR SPECIALIST LAB_1 [facility] [address] [place] [phone] * (ABNORMAL) LIPID PANEL AND DIRECT LDL(IF NEEDED) (08/07/2009 8:39 AM CDT) Cholesterol 201(H) 0 - 199 mg/dl [facility] Triglyceride 62 0 - 149 mg/dl [facility] HDL 64 >40 mg/dl [facility] LDL, Calc. 123 0 - 129 mg/dl [facility] Hours Fasting 12 hours [facility] 08/07/2009 8:39 AM CDT 08/07/2009 8:50 AM CDT Marco A Santana MD LAB_1 Performing Organization Address City/State/[facility] Co de Phone Number [facility] [address] [place] [phone] * COLONOSCOPY [[id number]] (01/27/2008 9:35 AM MACHINE ENGINEER) URL Link [facility] ([facility]) 01/27/2008 9:35 AM MACHINE ENGINEER Narrative [facility]) - 01/27/2008 10:39 AM MACHINE ENGINEER Indications: ? Average risk colon CA screen: [...] for malignant neoplasms, ? colon CPT?? 2007 [employer]. All Rights Reserved. No fee schedules, basic units, relative values or related listings are included in CPT. AMA does not directly or indirectly practice medicine or dispense medical services. [facility] assumes no liability for data contained or not contained herein. CPT is a registered trademark of the [employer]. The codes documented in this report are preliminary and upon tool design checker review may be revised to meet current compliance requirements. Attending Participation: Natan Lamas MD Signed Date: 01/27/2008 10:39 AM Number of Addenda: 0 Note initiated on 01/27/2008 9:36 AM Procedure Note Natan Lamas Jr. - 01/27/2008 Indications: Average risk colon [...] screening for malignant neoplasms, colon CPT?? 2007 [employer]. All Rights Reserved. No fee schedules, basic units, relative values or related listings are included in CPT. AMA does not directly or indirectly practice medicine or dispense medical services. AMA assumes no liability for data contained or not contained herein. CPT is a registered trademark of the [employer]. The codes documented in this report are preliminary and upon tool design checker review may be revised to meet current compliance requirements. Attending Participation: Natan Lamas MD Signed Date: 01/27/2008 10:39 AM Number of Addenda: 0 Note initiated on 01/27/2008 9:36 AM Natan Lamas Jr., MD DIGESTIVE CARE Performing Organization Address City/[facility] Co de Phone Number [facility] [place], [place] * HEPATITIS C AB (02/03/2001 10:08 AM MACHINE ENGINEER) Anti-HCV Negative Does Not Rule Out Infection with HCV [facility] 02/03/2001 10:0 8 AM MACHINE ENGINEER 02/03/2001 10:09 AM MACHINE ENGINEER Jaki Bautista MD LAB_1 [facility] [address] [phone] from Last 3 Months or Most Recently Relevant to Health Maintenance Advance Directives * Full Code (Latest Code Status on File) Date Activated Date Inactivated Comments 09/26/2009 11:02 AM 09/26/2009 2:57 PM Care Teams Carpenter Ship Relationship Specialty Start Date End Date Rani Faulkner MD [address] [place] [address] PCP - General Internal Medicine 11/28/16
--- OUTSIDE RECORDS SUMMARY | 2023-11-02 06:33 | XMS_ITS | Encounter Summary ---
Author Organization [employer] Address [address] [place] [address] Care Team Providers Care Grid Caster Name Role Phone Rani Faulkner MD Primary Care Provider +1- [phone] Encounter Details Date Type Department Care Team [...] on filedocumented in this encounter Care Teams Grid Caster Relationship Specialty Start Date End Date Rani Faulkner MD [address] [place] [address] PCP - General Internal Medicine 11/28/16 documented as of this encounter
--- OUTSIDE RECORDS SUMMARY | 2023-11-02 06:33 | XMS_ITS | Encounter Summary ---
Author Organization [employer] Address [address] [place] [address] Care Team Providers Care Product Delivery Specialist Name Role Phone Rani Faulkner MD Primary Care Provider +1- [phone] Encounter Details Date Type Department Care Team (Late st Contact Info) Description 04/23/1999 Orders Only [facility] [address] [place] [address] Omer Sharma MD [address] [place] [address] Social History Tobacco Use Types Packs/Day Years Used Date Smoking Tobacco: Never Assessed Sex and Gender Information Value Date Recorded Sex Assigned at Not on file Gender Identity Not on file Sexual Orientation Not on file documented as of this encounter Plan of Treatment Not on file documented as of this encounter Visit Diagnoses Not on filedocumented in this encounter Care Teams Product Delivery Specialist Relationship Specialty Start Date End Date Rani Faulkner MD [address] [place] [address] PCP - General Internal Medicine 11/28/16 documented as of this encounter
--- OUTSIDE RECORDS SUMMARY | 2023-11-02 06:33 | XMS_ITS | Referral Summary ---
Author Organization [facility] Address [address] [place] [address] Care Team Providers Care Manager Reading Name Role Phone Elsewhere, Pcp Primary Care Provider Unavailabl e Source Comments Patient records contain information from all sites at [facility]. For routine questions regarding patient records, call [phone] during business hours, M-F 8:00 AM - 5:00 PM Central Time. Record requests for emergency care only can be directed to [phone] at any time.[facility] Encounters Date Type Department Care Team Description 10/20/2023 4:00 PM CDT Telemedicine Division of Endocrinology in [place], [place] [address] [place] [phone] Cooper Kessler APRN, C.N.P., D.N.P. Overweight Body Mass Index 25-29.9 Adult (Primary Dx); Osteoarthritis; Asthma (HCC); Obesity Body Mass Index 30-39.9 Adult 10/14/2023 3:15 PM CDT Clinical Communication Virtual Review in [place], [place] [address] [place] [address] 09/01/2023 Refill Division of Endocrinology in [place], [place] [address] [place] [phone] Cooper Kessler APRN, C.N.P., D.N.P. Med Refill from Last 3 Months Allergies Active Allergy [...] drink = 0.6 oz pu re alcohol) [facility] Utilities Answer Date Recorded In the past 12 months has th e electric, gas, oil, or water company threatened to shut off services in your [...] often do you attend chur ch or anabaptism services? More than 4 times per year 06/21/2022 Do you belong to any clubs o r organizations such as spiritism groups, unions, fraternal or athletic groups, or [...] and heating? Not hard at all 06/21/2022 [facility] of Occupat ional [facility] - Occupational Stress Questionnaire Answer Date Recorded [...] your living situation today? I have a [facility] place to live 10/17/2023 Education Answer Date Recorded What is the highest level of school you have completed or the highest degree you have received? Doctorate 08/23/2020 Sex and Gender Information Value Date Recorded Sex Assigned at Female 01/01/2021 8:40 AM NUCLEAR MEDICAL TECHNOLOGIST Gender Identity Female 01/01/2021 8:40 AM NUCLEAR MEDICAL TECHNOLOGIST Sexual Orientation Straight 01/01/2021 8: 40 AM NUCLEAR MEDICAL TECHNOLOGIST Last Filed Vital Signs Vital Sign Reading Time Taken Comments Blood Pressure 133/83 03/05/2023 10:59 AM NUCLEAR MEDICAL TECHNOLOGIST Pulse 74 03/05/2023 10:59 AM NUCLEAR MEDICAL TECHNOLOGIST Temperature - - Respiratory Rate - - Oxygen Saturation - - Inhaled Oxygen Concentration - - Weight 85.7 kg (189 lb) 10/20/2023 4:03 PM CDT Height 169.5 cm (5' 6.73) 10/20/2023 4:03 PM CD T Body Mass Index 29.84 10/20/2023 4:03 PM CDT Plan of Treatment Not on file Medical Devices Implanted Type Area Rhic Systems Safety Engineer Device Identifier Shelf Expiration Date Model / Serial / Lot Hardware E.G. Pins/Screws/Ro ds Hardware e.g. pins/screws/ rods Bilatera l: Foot Description:Hardware Knee Implant-06/17/19 18 Implanted:050 02/2017 (Quantity not on file) Knee Implant Left: Knee Ocular (Eye) Implant Ocular (Eye) Implant Bilatera l: Eye Description:Completed 1 week apart - February 2021 Care Teams Manager Reading Relationship Specialty Start Date End Date Elsewhere, Pcp PCP - General Internal Medicine 04/16/21
--- OUTSIDE RECORDS SUMMARY | 2023-11-02 06:33 | XMS_ITS | Encounter Summary ---
Author Organization [employer] Address [address] [place] [address] Care Team Providers Care Sharepoint Solutions Architect Name Role Phone Rani Faulkner MD Primary Care Provider +1- [phone] Encounter Details Date Type Department Care Team (Latest Contact Info) Description 07/19/1999 Orders Only Epic, [place] [address] Social History Tobacco Use Types Packs/Day Years Used Date Smoking Tobacco: Never Assessed Sex and Gender Information Value Date Recorded Sex Assigned at Not on file Gender Identity Not on file Sexual Orientation Not on file documented as of this encounter Plan of Treatment Not on file documented as of this encounter Visit Diagnoses Not on filedocumented in this encounter Care Teams Sharepoint Solutions Architect Relationship Specialty Start Date End Date Rani Faulkner MD [address] [place] [address] PCP - General Internal Medicine 11/28/16 documented as of this encounter
--- OUTSIDE RECORDS SUMMARY | 2023-11-02 06:33 | XMS_ITS | Encounter Summary ---
Author Organization [employer] Address [address] [place] [address] Care Team Providers Care Colorist Name Role Phone Rani Faulkner MD Primary Care Provider +1- [phone] Encounter Details Date Type Department Care Team (Latest Contact Info) Description 06/12/1999 Orders Only Marco A Santana MD [address] [place] [address] Social History Tobacco Use Types Packs/Day Years Used Date Smoking Tobacco: Never Assessed Sex and Gender Information Value Date Recorded Sex Assigned at Not on file Gender Identity Not on file Sexual Orientation Not on file documented as of this encounter Plan of Treatment Not on file documented as of this encounter Visit Diagnoses Not on filedocumented in this encounter Care Teams Colorist Relationship Specialty Start Date End Date Rani Faulkner MD [address] [place] [address] PCP - General Internal Medicine 11/28/16 documented as of this encounter
--- OUTSIDE RECORDS SUMMARY | 2023-11-02 06:33 | XMS_ITS | Encounter Summary ---
Author Organization [email or web address] Address [address] [place] [address] Care Team Providers Care Shiftman Name Role Phone Rani Faulkner MD Primary Care Provider +1- [phone] Encounter Details Date Type Department Care Team [...] on filedocumented in this encounter Care Teams Shiftman Relationship Specialty Start Date End Date Rani Faulkner MD [address] [place] [address] PCP - General Internal Medicine 11/28/16 documented as of this encounter
--- OUTSIDE RECORDS SUMMARY | 2023-11-02 06:33 | XMS_ITS | Encounter Summary ---
Author Organization [employer] Address [address] [place] [address] Care Team Providers Care Prepress Stripper Name Role Phone Rani Faulkner MD Primary Care Provider +1- [phone] Encounter Details Date Type Department Care Team (Late st Contact Info) Description 01/04/2007 Consent for Procedure/[facility]me nt [facility] [address] [place] [address] Nicolas Emmanuel, DPM [address] [place] [address] INFORMED CONSENT RECORD Social History [...] * Nicolas Emmanuel - 01/04/2007 12:00 AM KETTLE HAND LE HAND documented in this encounter Plan of Treatment Not on file documented as of this encounter Visit Diagnoses Not on filedocumented in this encounter Care Teams Prepress Stripper Relationship Specialty Start Date End Date Rani Faulkner MD [address] [place] [address] PCP - General Internal Medicine 11/28/16 documented as of this encounter
--- OUTSIDE RECORDS SUMMARY | 2023-11-02 06:33 | XMS_ITS ---
Author Organization [facility] Address [address] [place] [address] Care Team Providers Care Municipal Engineer Name Role Phone Unavailable Unavailable Unavailable Surgery Details Not on file Complications Check Surgery Details section. Procedure Estimated Blood Loss Check Surgery Details section. Procedure Findings Check Surgery Details section. Procedure Specimens Taken Check Surgery Details section.
--- OUTSIDE RECORDS SUMMARY | 2023-11-02 06:34 | XMS_ITS | Encounter Summary ---
Author Organization [employer] Address [address] [place] [address] Care Team Providers Care Commercial Sales Representative Name Role Phone Rani Faulkner MD Primary Care Provider +1- [phone] Encounter Details Date Type Department Care Team (Late st Contact Info) Description 04/17/1995 Orders Only [facility] [address] [place] [id number] Angela Darden MD Social History Tobacco Use [...] on filedocumented in this encounter Care Teams Commercial Sales Representative Relationship Specialty Start Date End Date Rani Faulkner MD [address] [place] [address] PCP - General Internal Medicine 11/28/16 documented as of this encounter
--- OUTSIDE RECORDS SUMMARY | 2023-11-02 06:34 | XMS_ITS | Encounter Summary ---
Author Organization [employer] Address [address] [place] [address] Care Team Providers Care Production Control Pegboard Clerk Name Role Phone Rani Faulkner MD Primary Care Provider +1- [phone] Encounter Details Date Type Department Care Team [...] on filedocumented in this encounter Care Teams Production Control Pegboard Clerk Relationship Specialty Start Date End Date Rani Faulkner MD [address] [place] [address] PCP - General Internal Medicine 11/28/16 documented as of this encounter
--- OUTSIDE RECORDS SUMMARY | 2023-11-02 06:34 | XMS_ITS | Encounter Summary ---
Author Organization [employer] Address [address] [place] [address] Care Team Providers Care Cycle Director Name Role Phone Rani Faulkner MD Primary Care Provider +1- [phone] Encounter Details Date Type Department Care Team (Late st Contact Info) Description 06/13/1997 Orders Only [facility] [address] [place] [phone] Angela Darden MD Social History Tobacco Use [...] on filedocumented in this encounter Care Teams Cycle Director Relationship Specialty Start Date End Date Rani Faulkner MD [address] [place] [address] PCP - General Internal Medicine 11/28/16 documented as of this encounter
--- OUTSIDE RECORDS SUMMARY | 2023-11-02 06:34 | XMS_ITS | Encounter Summary ---
Author Organization [employer] Address [address] [place] [address] Care Team Providers Care Automation Tech Name Role Phone Rani Faulkner MD Primary Care Provider +1- [phone] Encounter Details Date Type Department Care Team [...] on filedocumented in this encounter Care Teams Automation Tech Relationship Specialty Start Date End Date Rani Faulkner MD [address] [place] [address] PCP - General Internal Medicine 11/28/16 documented as of this encounter
--- OUTSIDE RECORDS SUMMARY | 2023-11-02 06:34 | XMS_ITS | Encounter Summary ---
Author Organization [employer] Address [address] [place] [address] Care Team Providers Care Twisting Operator Name Role Phone Rani Faulkner MD Primary Care Provider +1- [phone] Encounter Details Date Type Department Care Team (Latest Contact Info) Description 03/18/1994 Orders Only Guillermo Benton MD [address] [place] [address] Social History Tobacco Use Types Packs/Day Years Used Date Smoking Tobacco: Never Assessed Sex and Gender Information Value Date Recorded Sex Assigned at Not on file Gender Identity Not on file Sexual Orientation Not on file documented as of this encounter Plan of Treatment Not on file documented as of this encounter Visit Diagnoses Not on filedocumented in this encounter Care Teams Twisting Operator Relationship Specialty Start Date End Date Rani Faulkner MD [address] [place] [address] PCP - General Internal Medicine 11/28/16 documented as of this encounter
--- OUTSIDE RECORDS SUMMARY | 2023-11-02 06:34 | XMS_ITS | Encounter Summary ---
Author Organization [employer] Address [address] [place] [address] Care Team Providers Care Records Management Assistant Name Role Phone Rani Faulkner MD Primary Care Provider +1- [phone] Encounter Details Date Type Department Care Team [...] on filedocumented in this encounter Care Teams Records Management Assistant Relationship Specialty Start Date End Date Rani Faulkner MD [address] [place] [address] PCP - General Internal Medicine 11/28/16 documented as of this encounter
--- OUTSIDE RECORDS SUMMARY | 2023-11-02 06:34 | XMS_ITS | Encounter Summary ---
Author Organization [employer] Address [address] [place] [address] Care Team Providers Care Electric Spot Welder Name Role Phone Rani Faulkner MD Primary Care Provider +1- [phone] Encounter Details Date Type Department Care Team (Latest Contact Info) Description 04/21/1994 Orders Only Guillermo Benton MD [address] [place] [address] Social History Tobacco Use Types Packs/Day Years Used Date Smoking Tobacco: Never Assessed Sex and Gender Information Value Date Recorded Sex Assigned at Not on file Gender Identity Not on file Sexual Orientation Not on file documented as of this encounter Plan of Treatment Not on file documented as of this encounter Visit Diagnoses Not on filedocumented in this encounter Care Teams Electric Spot Welder Relationship Specialty Start Date End Date Rani Faulkner MD [address] [place] [address] PCP - General Internal Medicine 11/28/16 documented as of this encounter
--- OUTSIDE RECORDS SUMMARY | 2023-11-02 06:34 | XMS_ITS | Encounter Summary ---
Author Organization [employer] Address [address] [place] [address] Care Team Providers Care Assistant Media Buyer Name Role Phone Rani Faulkner MD Primary Care Provider +1- [phone] Encounter Details Date Type Department Care Team [...] on filedocumented in this encounter Care Teams Assistant Media Buyer Relationship Specialty Start Date End Date Rani Faulkner MD [address] [place] [address] PCP - General Internal Medicine 11/28/16 documented as of this encounter
--- OUTSIDE RECORDS SUMMARY | 2023-11-02 06:34 | XMS_ITS | Encounter Summary ---
Author Organization [employer] Address [address] [place] [address] Care Team Providers Care Cabinet Professional Name Role Phone Rani Faulkner MD Primary Care Provider +1- [phone] Encounter Details Date Type Department Care Team [...] on filedocumented in this encounter Care Teams Cabinet Professional Relationship Specialty Start Date End Date Rani Faulkner MD [address] [place] [address] PCP - General Internal Medicine 11/28/16 documented as of this encounter
--- OUTSIDE RECORDS SUMMARY | 2023-11-02 06:34 | XMS_ITS | Encounter Summary ---
Author Organization [employer] Address [address] [place] [address] Care Team Providers Care Vending Machine Attendant Name Role Phone Rani Faulkner MD Primary Care Provider +1- [phone] Encounter Details Date Type Department Care Team [...] in this encounter Care Teams Vending Machine Attendant Relationship Specialty Start Date End Date Rani Faulkner MD [address] [place] [address] PCP - General Internal Medicine 11/28/16 documented as of this encounter
--- OUTSIDE RECORDS SUMMARY | 2023-11-02 06:34 | XMS_ITS | Clinical Summary ---
Author Organization [employer] Address [place], [place] [address] Care Team Providers Care Flap Curer Name Role Phone Rani Faulkner MD Primary Care Provider +1- [phone] Allergies Active Allergy Reactions Criticality Noted Date [...] 1 - PCV) 023 COVID-19 vaccine series ( - 2022-24 season) 4 Influenza for age 65+ 10/18/2023 Care Teams Flap Curer Relationship Specialty Start Date End Date Rani Faulkner MD [address] [place] [address] PCP - General Internal Medicine 08/23/14
--- OUTSIDE RECORDS SUMMARY | 2023-11-02 06:34 | XMS_ITS | Encounter Summary ---
Author Organization [employer] Address [address] [place] [address] Care Team Providers Care Airplane Cover Maker Name Role Phone Rani Faulkner MD Primary Care Provider +1- [phone] Encounter Details Date Type Department Care Team [...] on filedocumented in this encounter Care Teams Airplane Cover Maker Relationship Specialty Start Date End Date Rani Faulkner MD [address] [place] [address] PCP - General Internal Medicine 11/28/16 documented as of this encounter
--- OUTSIDE RECORDS SUMMARY | 2023-11-02 06:34 | XMS_ITS | Encounter Summary ---
Author Organization [employer] Address [address] [place] [address] Care Team Providers Care Labourers Name Role Phone Rani Faulkner MD Primary Care Provider +1- [phone] Encounter Details Date Type Department Care Team [...] on filedocumented in this encounter Care Teams Labourers Relationship Specialty Start Date End Date Rani Faulkner MD [address] [place] [address] PCP - General Internal Medicine 11/28/16 documented as of this encounter
--- OUTSIDE RECORDS SUMMARY | 2023-11-02 06:34 | XMS_ITS | Encounter Summary ---
Author Organization [employer] Address [address] [place] [address] Care Team Providers Care Luggage Liner Name Role Phone Rani Faulkner MD Primary Care Provider +1- [phone] Encounter Details Date Type Department Care Team (Late st Contact Info) Description 02/06/1998 Orders Only [facility] [place] [facility] [address] [place] [address] Angela Darden MD Social History Tobacco Use [...] on filedocumented in this encounter Care Teams Luggage Liner Relationship Specialty Start Date End Date Rani Faulkner MD [address] [place] [address] PCP - General Internal Medicine 11/28/16 documented as of this encounter
[2023-11-02 06:49] VITALS: BMI 29.1
[2023-11-02 06:51] VITALS: BP 131/84; PULSE 61; RESP 16; TEMP 36.3; O2SAT 100
[2023-11-02] MEDS: BUPIVACAINE 0.5% 30 ML INJECTION (06:55)
--- NOTE | 2023-11-02 07:10 | SUR.PREOP ---
SAME DAY SURGERY LOCAL INJECTION SITE VERIFICATION WAS PERFORMED BY SURGEON/PA AND PATIENT PRIOR TO LOCAL ANESTHETIC BEING INJECTED TO OPERATIVE SITE.
[2023-11-02 07:17] VITALS: BP 154/70; PULSE 65; RESP 16; O2SAT 100
[2023-11-02] MEDS: ETHYL CHLORIDE 1 APPLICATION 1 APPLIC TOPICAL (07:17)
[2023-11-02 07:20] VITALS: BP 130/62; PULSE 66; RESP 16; O2SAT 100
[2023-11-02 07:25] VITALS: BP 139/71; PULSE 61; RESP 16; O2SAT 100
[2023-11-02 07:30] VITALS: BP 139/72; PULSE 63; RESP 16; O2SAT 100
--- NOTE | 2023-11-02 07:37 | PM.ORPRC ---
Procedure Note Date of procedure: 11/02/23 Procedure: PREOPERATIVE DIAGNOSIS: 1. Right carpal tunnel syndrome POSTOPERATIVE DIAGNOSIS: 1. Right carpal tunnel syndrome PROCEDURE: 1. Right open carpal tunnel release SURGEON: Agustín Lopez MD. PROPULSION GENERATOR REPAIRER: CJ Velez ANESTHESIA: Local anesthetic (50:50 mixture of 1% lidocaine with epi and 0.5% marcaine plain) - 10ml total IMPLANTS: None EBL: 2 mL TOURNIQUET: None COMPLICATIONS: None evident INDICATIONS: The patient is a pleasant 68-year-old female who has experienced right hand numbess/tingling affecting the radial 3.5 digits for multiple months. It has progressively gotten worse. Nonoperative management has been tried and failed, and therefore surgery was recommended. DESCRIPTION OF PROCEDURE: Following a thorough discussion of risks, benefits, and alternatives consent was obtained and the operative extremity was marked. The patient was brought to the operating room and placed supine on the operating table. Local anesthesia induction was undertaken in preop holding. No antibiotics were administered as this was planned to be a local case only. Proper time-out was performed identifying proper patient, site, and procedure. The operative extremity was prepped and draped in the appropriate sterile fashion using ChloraPrep. An incision was made in line with the radial border of the ring finger beginning 1 cm distal to the distal wrist crease and progressing for another 2.5cm distal. Caution was taken to stay proximal to Parrish's cardinal line. Sharp incision through the skin, subcutaneous tissue, and palmar fascia was performed. The thenar musculature was bluntly elevated off the transverse carpal ligament. The ligament was directly visualized, and divided sharply with a 15 blade. This was released from its most proximal to the most distal extent. Metzenbaum scissor was also utilized to release the fascia extension proximally. We confirmed complete release of the transverse carpal ligament. Closure was performed with 4-O nylon in interrupted fashion. Soft dressings were applied, and the patient was transferred to the recovery room in stable condition. PLAN: 1. Encourage elevation of the operative extremity. 2. Range of motion of the fingers and hand/wrist as tolerated. 3. Ibuprofen/acetaminophen and/or oxycodone as needed for pain control. 4. Follow up with PA visit or nurse visit in 12-16 days for wound check and suture removal.
[2023-11-02 07:45] VITALS: BP 136/81; PULSE 59; RESP 16; TEMP 36.3; O2SAT 100
== END 2023-11-02 08:00 | disposition home or self-care (01) ==
LOC: OR 06:31
PROVIDERS: PCP Internal Medicine; Visit Provider Orthopaedic Surgery Sports Medicine
PROC: (CPT 64721; principal; 2023-11-02 07:15)
DX: G56.01 Carpal tunnel syndrome, right upper limb (principal)
CPT/HCPCS: 64721; J0665

== ENCOUNTER 2024-03-28 07:57 | Outpatient (CLI) | payer MEDICARE, SELFPAY | END 2024-03-28 07:58 | disposition home or self-care (01) | LOC: NFLDREF 04-01 02:49 | PROVIDERS: PCP Internal Medicine; Referring Provider Internal Medicine; Visit Provider Internal Medicine | DX: E03.9 Hypothyroidism, unspecified (principal) | CPT/HCPCS: 84443 ==

== ENCOUNTER 2024-04-11 06:33 | Day surgery (SDC) | payer MEDICARE, SELFPAY ==
[2024-04-11] VITALS (7 sets, daily range): BP systolic 120–133; BP diastolic 72–81; PULSE 70–78; RESP 16; TEMP 36.4; O2SAT 100; BMI 29.9
--- OUTSIDE RECORDS SUMMARY | 2024-04-11 06:36 | XMS_ITS | Encounter Summary ---
Author Organization [employer] Address [address] [place] [address] Care Team Providers Care Artificial Breeding Ranch Supervisor Name Role Phone Rani Faulkner MD Primary Care Provider +1- [phone] Encounter Details Date Type Department Care Team (Latest Contact Info) Description 06/22/1998 Orders Only Max Gomez MD Social History Tobacco Use Types Packs/Day Years Used Date Smoking Tobacco: Never Assessed Comments Unknown Sex and Gender Information Value Date Recorded Sex Assigned at Not on file Legal Sex Female 4:08 AM CDT Gender Identity Not on file Sexual Orientation Not on file documented as of this encounter Plan of Treatment Not on file documented as of this encounter Visit Diagnoses Not on filedocumented in this encounter Care Teams Artificial Breeding Ranch Supervisor Relationship Specialty Start Date End Date Rani Faulkner MD [address] [place] [address] PCP - General Internal Medicine 11/28/16 documented as of this encounter
--- OUTSIDE RECORDS SUMMARY | 2024-04-11 06:36 | XMS_ITS | Encounter Summary ---
Author Organization [employer] Address [address] [place] [address] Care Team Providers Care Purchasing Specialist Name Role Phone Rani Faulkner MD Primary Care Provider +1- [phone] Encounter Details Date Type Department Care Team [...] on filedocumented in this encounter Care Teams Purchasing Specialist Relationship Specialty Start Date End Date Rani Faulkner MD [address] [place] [address] PCP - General Internal Medicine 11/28/16 documented as of this encounter
--- OUTSIDE RECORDS SUMMARY | 2024-04-11 06:36 | XMS_ITS | Encounter Summary ---
Author Organization [employer] Address [address] [place] [address] Care Team Providers Care Bacteriology Professor Name Role Phone Rani Faulkner MD Primary Care Provider +1- [phone] Encounter Details Date Type Department Care Team (Late st Contact Info) Description 01/04/2007 Consent for Procedure/Treatme nt [facility] [address] [facility] [address] [place] [address] Nicolas Emmanuel, DPM [address] [place] [address] INFORMED CONSENT RECORD Social History Tobacco Use Types Packs/Day Years Used Date Smoking Tobacco: Never Alcohol Use Standard Drinks/Week Comments Yes 6.7 (1 standard drink = 0.6 oz p ure alcohol) Comments No Sex and Gender Information Value Date Recorded Sex Assigned at Not on file Legal Sex Female 4:08 AM CDT Gender Identity Not on file Sexual Orientation Not on file Occupation Industry Job Start Date Job End Date professor Not on file Not on file Not on file documented as of this encounter Progress Notes * Nicolas Emmanuel - 01/04/2007 12:00 AM MANAGER ENGLISH GER ENGLISH documented in this encounter Plan of Treatment Not on file documented as of this encounter Visit Diagnoses Not on filedocumented in this encounter Care Teams Bacteriology Professor Relationship Specialty Start Date End Date Rani Faulkner MD [address] [place] [address] PCP - General Internal Medicine 11/28/16 documented as of this encounter
--- OUTSIDE RECORDS SUMMARY | 2024-04-11 06:36 | XMS_ITS | Encounter Summary ---
Author Organization [employer] Address [address] [place] [address] Care Team Providers Care Riding Double Name Role Phone Rani Faulkner MD Primary Care Provider +1- [phone] Encounter Details Date Type Department Care Team (Latest Contact Info) Description 07/19/1999 Orders Only [employer], [place] [address] Social History Tobacco Use Types Packs/Day Years [...] on filedocumented in this encounter Care Teams Riding Double Relationship Specialty Start Date End Date Rani Faulkner MD [address] [place] [address] PCP - General Internal Medicine 11/28/16 documented as of this encounter
--- OUTSIDE RECORDS SUMMARY | 2024-04-11 06:36 | XMS_ITS | Encounter Summary ---
Author Organization [employer] Address [address] [place] [address] Care Team Providers Care Enamel Cracker Name Role Phone Rani Faulkner MD Primary Care Provider +1- [phone] Encounter Details Date Type Department Care Team [...] on filedocumented in this encounter Care Teams Enamel Cracker Relationship Specialty Start Date End Date Rani Faulkner MD [address] [place] [address] PCP - General Internal Medicine 11/28/16 documented as of this encounter
--- OUTSIDE RECORDS SUMMARY | 2024-04-11 06:36 | XMS_ITS | Encounter Summary ---
Author Organization [employer] Address [address] [place] [address] Care Team Providers Care Unix Consultant Name Role Phone Rani Faulkner MD Primary Care Provider +1- [phone] Encounter Details Date Type Department Care Team [...] on filedocumented in this encounter Care Teams Unix Consultant Relationship Specialty Start Date End Date Rani Faulkner MD [address] [place] [address] PCP - General Internal Medicine 11/28/16 documented as of this encounter
--- OUTSIDE RECORDS SUMMARY | 2024-04-11 06:36 | XMS_ITS | Encounter Summary ---
Author Organization [employer] Address [address] [place] [address] Care Team Providers Care Payroll Analyst Name Role Phone Rani Faulkner MD Primary Care Provider +1- [phone] Encounter Details Date Type Department Care Team (Late st Contact Info) Description 06/18/1999 Orders Only [facility] [address] [place] [address] Angela Darden MD Social History Tobacco Use [...] on filedocumented in this encounter Care Teams Payroll Analyst Relationship Specialty Start Date End Date Rani Faulkner MD [address] [place] [address] PCP - General Internal Medicine 11/28/16 documented as of this encounter
--- OUTSIDE RECORDS SUMMARY | 2024-04-11 06:36 | XMS_ITS | Encounter Summary ---
Author Organization [employer] Address [address] [place] [address] Care Team Providers Care Buddhist Monk Name Role Phone Rani Faulkner MD Primary Care Provider +1- [phone] Encounter Details Date Type Department Care Team [...] on filedocumented in this encounter Care Teams Buddhist Monk Relationship Specialty Start Date End Date Rani Faulkner MD [address] [place] [address] PCP - General Internal Medicine 11/28/16 documented as of this encounter
--- OUTSIDE RECORDS SUMMARY | 2024-04-11 06:36 | XMS_ITS | Encounter Summary ---
Author Organization [employer] Address [address] [place] [address] Care Team Providers Care Unit Secy Name Role Phone Rani Faulkner MD Primary Care Provider +1- [phone] Encounter Details Date Type Department Care Team [...] on filedocumented in this encounter Care Teams Unit Secy Relationship Specialty Start Date End Date Rani Faulkner MD [address] [place] [address] PCP - General Internal Medicine 11/28/16 documented as of this encounter
--- OUTSIDE RECORDS SUMMARY | 2024-04-11 06:36 | XMS_ITS | Encounter Summary ---
Author Organization [employer] Address [address] [place] [address] Care Team Providers Care Welder Production Line Arc Name Role Phone Rani Faulkner MD Primary Care Provider +1- [phone] Encounter Details Date Type Department Care Team (Latest Contact Info) Description 06/12/1999 Orders Only Marco A Santana MD [address] [place] [address] Social History Tobacco Use Types Packs/Day Years [...] on filedocumented in this encounter Care Teams Welder Production Line Arc Relationship Specialty Start Date End Date Rani Faulkner MD [address] [place] [address] PCP - General Internal Medicine 11/28/16 documented as of this encounter
--- OUTSIDE RECORDS SUMMARY | 2024-04-11 06:36 | XMS_ITS | Clinical Summary ---
Author Organization [employer] [facility] [employer] [facility] Address [address] [place] [address] Care Team Providers Care Beef Lugger Name Role Phone Rani Faulkner MD Primary Care Provider +1- [phone] Allergies Active Allergy Reactions Criticality Noted Date Comments Dog Hair Standardized Allergenic Extract Other - Describe In Comment Field 08/30/2014 Breathing problems Medications levothyroxine (SYNTHROID) 150 mcg tablet Take 1 tablet by mouth before breakfast. 0 5 Active fluticasone (FLOVENT HFA) 110 mcg/Actuation inhaler Inhale 1 Puff by mouth 2 times daily. 0 5 Active methylPREDNISol one (MEDROL, LIONEL,) 4 mg tabletIndicatio ns:Capsulitis of foot, right Take by mouth as instructed per packaging. 1 Package 0 5 Active Social History Tobacco Use Types Packs/Day Years Used Date Smoking Tobacco: Never Tobacco Cessation:Counseling Given: Yes Comments Unknown Sex and Gender Information Value Date Recorded Sex Assigned at Not on file Legal Sex Female 3:33 PM CDT Gender Identity Not on file Sexual [...] 45-75 2002 Mammogram for age 45-75 2002 Pneumococcal series for age 50+ (1 of 1 - PCV) 008 Zoster (shingles) series for age 50+ (1 of 2) 05/11/19 08 DEXA/DXA scan for age 65+ 2022 COVID-19 vaccine series (1 - 2023- season) 4 Influenza for age 65+ 10/18/2023 RSV vaccine for adults or pr egnancy (1 - 1-dose 75+ series) 2032 Insurance Care Teams Beef Lugger Relationship Specialty Start Date End Date Rani Faulkner MD [address] [place] [address] PCP - General Internal Medicine 08/23/14
--- OUTSIDE RECORDS SUMMARY | 2024-04-11 06:36 | XMS_ITS | Encounter Summary ---
Author Organization [employer] Address [address] [place] [address] Care Team Providers Care Insurance Solicitor Name Role Phone Rani Faulkner MD Primary Care Provider +1- [phone] Encounter Details Date Type Department Care Team [...] filedocumented in this encounter Care Teams Insurance Solicitor Relationship Specialty Start Date End Date Rani Faulkner MD [address] [place] [address] PCP - General Internal Medicine 11/28/16 documented as of this encounter
--- OUTSIDE RECORDS SUMMARY | 2024-04-11 06:36 | XMS_ITS | Encounter Summary ---
Author Organization [employer] Address [address] [place] [address] Care Team Providers Care Food Safety Technician Name Role Phone Rani Faulkner MD Primary Care Provider +1- [phone] Encounter Details Date Type Department Care Team (Late st Contact Info) Description 1998 Orders Only [facility] [place] [address] [place] [id number] Angela Darden MD Social History Tobacco Use [...] on filedocumented in this encounter Care Teams Food Safety Technician Relationship Specialty Start Date End Date Rani Faulkner MD [address] [place] [address] PCP - General Internal Medicine 11/28/16 documented as of this encounter
--- OUTSIDE RECORDS SUMMARY | 2024-04-11 06:36 | XMS_ITS | Encounter Summary ---
Author Organization [employer] Address [address] [place] [address] Care Team Providers Care County Nurse Name Role Phone Rani Faulkner MD Primary Care Provider +1- [phone] Encounter Details Date Type Department Care Team (Late st Contact Info) Description 04/17/1995 Orders Only [facility] [place] [address] [place] [phone] Angela Darden MD Social History Tobacco Use [...] on filedocumented in this encounter Care Teams County Nurse Relationship Specialty Start Date End Date Rani Faulkner MD [address] [place] [address] PCP - General Internal Medicine 11/28/16 documented as of this encounter
--- OUTSIDE RECORDS SUMMARY | 2024-04-11 06:36 | XMS_ITS | Encounter Summary ---
Author Organization [employer] Address [address] [place] [address] Care Team Providers Care Chemical Laboratory Chief Name Role Phone Rani Faulkner MD Primary Care Provider +1- [phone] Encounter Details Date Type Department Care Team [...] on filedocumented in this encounter Care Teams Chemical Laboratory Chief Relationship Specialty Start Date End Date Rani Faulkner MD [address] [place] [address] PCP - General Internal Medicine 11/28/16 documented as of this encounter
--- OUTSIDE RECORDS SUMMARY | 2024-04-11 06:36 | XMS_ITS | Encounter Summary ---
Author Organization [employer] Address [address] [place] [address] Care Team Providers Care Sales Intern Name Role Phone Rani Faulkner MD Primary Care Provider +1- [phone] Encounter Details Date Type Department Care Team (Latest Contact Info) Description 04/21/1994 Orders Only Guillermo Benton MD [address] [place] [address] Social History Tobacco Use Types Packs/Day Years [...] on filedocumented in this encounter Care Teams Sales Intern Relationship Specialty Start Date End Date Rani Faulkner MD [address] [place] [address] PCP - General Internal Medicine 11/28/16 documented as of this encounter
--- OUTSIDE RECORDS SUMMARY | 2024-04-11 06:36 | XMS_ITS | Encounter Summary ---
Author Organization [employer] Address [address] [place] [address] Care Team Providers Care Grid Inspector Name Role Phone Rani Faulkner MD Primary Care Provider +1- [phone] Encounter Details Date Type Department Care Team [...] filedocumented in this encounter Care Teams Grid Inspector Relationship Specialty Start Date End Date Rani Faulkner MD [address] [place] [address] PCP - General Internal Medicine 11/28/16 documented as of this encounter
--- OUTSIDE RECORDS SUMMARY | 2024-04-11 06:36 | XMS_ITS | Encounter Summary ---
Author Organization [employer] Address [address] [place] [address] Care Team Providers Care Plc Engineer Name Role Phone Rani Faulkner MD Primary Care Provider +1- [phone] Encounter Details Date Type Department Care Team (Late st Contact Info) Description 02/06/1998 Orders Only [facility] [place] [address] [place] [id number] Angela Darden MD Social History Tobacco Use [...] on filedocumented in this encounter Care Teams Plc Engineer Relationship Specialty Start Date End Date Rani Faulkner MD [address] [place] [address] PCP - General Internal Medicine 11/28/16 documented as of this encounter
--- OUTSIDE RECORDS SUMMARY | 2024-04-11 06:36 | XMS_ITS | Encounter Summary ---
Author Organization [employer] Address [address] [place] [address] Care Team Providers Care Cafeteria Assistant Name Role Phone Rani Faulkner MD Primary Care Provider +1- [phone] Encounter Details Date Type Department Care Team (Latest Contact Info) Description 03/18/1994 Orders Only Guillermo Benton MD [address] [place] [address] Social History Tobacco Use Types Packs/Day Years [...] on filedocumented in this encounter Care Teams Cafeteria Assistant Relationship Specialty Start Date End Date Rani Faulkner MD [address] [place] [address] PCP - General Internal Medicine 11/28/16 documented as of this encounter
--- OUTSIDE RECORDS SUMMARY | 2024-04-11 06:36 | XMS_ITS | Encounter Summary ---
Author Organization [employer] Address [address] [place] [address] Care Team Providers Care Airport Representative Name Role Phone Rani Faulkner MD Primary Care Provider +1- [phone] Encounter Details Date Type Department Care Team (Late st Contact Info) Description 04/23/1999 Orders Only [facility] [place] [address] [place] [address] Omer Sharma MD [address] [place] [address] Social History Tobacco Use Types Packs/Day Years [...] on filedocumented in this encounter Care Teams Airport Representative Relationship Specialty Start Date End Date Rani Faulkner MD [address] [place] [address] PCP - General Internal Medicine 11/28/16 documented as of this encounter
--- OUTSIDE RECORDS SUMMARY | 2024-04-11 06:36 | XMS_ITS | Encounter Summary ---
Author Organization [employer] Address [address] [place] [address] Care Team Providers Care Software Systems Architect Name Role Phone Rani Faulkner MD Primary Care Provider +1- [phone] Encounter Details Date Type Department Care Team [...] on filedocumented in this encounter Care Teams Software Systems Architect Relationship Specialty Start Date End Date Rani Faulkner MD [address] [place] [address] PCP - General Internal Medicine 11/28/16 documented as of this encounter
--- OUTSIDE RECORDS SUMMARY | 2024-04-11 06:36 | XMS_ITS | Encounter Summary ---
Author Organization [employer] Address [address] [place] [address] Care Team Providers Care Conveyor Line Battery Charger Name Role Phone Rani Faulkner MD Primary Care Provider +1- [phone] Encounter Details Date Type Department Care Team [...] on filedocumented in this encounter Care Teams Conveyor Line Battery Charger Relationship Specialty Start Date End Date Rani Faulkner MD [address] [place] [address] PCP - General Internal Medicine 11/28/16 documented as of this encounter
--- OUTSIDE RECORDS SUMMARY | 2024-04-11 06:36 | XMS_ITS | Encounter Summary ---
Author Organization [employer] Address [address] [place] [address] Care Team Providers Care Electronic Semiconductor Processor Name Role Phone Rani Faulkner MD Primary Care Provider +1- [phone] Encounter Details Date Type Department Care Team (Late st Contact Info) Description 08/28/1999 Orders Only [facility] [place] [address] [place] [address] Omer Sharma MD [address] [place] [address] Social History Tobacco Use Types Packs/Day Years [...] on filedocumented in this encounter Care Teams Electronic Semiconductor Processor Relationship Specialty Start Date End Date Rani Faulkner MD [address] [place] [address] PCP - General Internal Medicine 11/28/16 documented as of this encounter
--- OUTSIDE RECORDS SUMMARY | 2024-04-11 06:36 | XMS_ITS | Encounter Summary ---
Author Organization [employer] Address [address] [place] [address] Care Team Providers Care Conventional Underwriter Name Role Phone Rani Faulkner MD Primary Care Provider +1- [phone] Encounter Details Date Type Department Care Team (Late st Contact Info) Description 06/13/1997 Orders Only [facility] [address] [place] [address] Angela Darden MD Social History Tobacco Use [...] on filedocumented in this encounter Care Teams Conventional Underwriter Relationship Specialty Start Date End Date Rani Faulkner MD [address] [place] [address] PCP - General Internal Medicine 11/28/16 documented as of this encounter
--- OUTSIDE RECORDS SUMMARY | 2024-04-11 06:36 | XMS_ITS | Encounter Summary ---
Author Organization [employer] Address [address] [place] [address] Care Team Providers Care Mineral Technologist Name Role Phone Rani Faulkner MD Primary Care Provider +1- [phone] Encounter Details Date Type Department Care Team [...] on filedocumented in this encounter Care Teams Mineral Technologist Relationship Specialty Start Date End Date Rani Faulkner MD [address] [place] [address] PCP - General Internal Medicine 11/28/16 documented as of this encounter
--- OUTSIDE RECORDS SUMMARY | 2024-04-11 06:37 | XMS_ITS | Clinical Summary ---
Author Organization [facility] Address [address] [place] [address] Care Team Providers Care Software Design Engineer Name Role Phone Rani Faulkner MD Primary Care Provider +1- [phone] Source Comments You are receiving this document as you are listed as the primary care provider,follow-up provider, or the patient has been referred to you for consultation.This is in compliance with the Medicare and[facility] EHR Incentive Program,which states Providers who transition their patient to another setting of careor provider of care or refers their patient to another provider of care shouldprovide summary care record for each transition of care or referral. [facility] Allergies No known active allergies Medications * This document contains information received from the source organization and may not represent a complete record from that organization. ZYRTEC 10 MG OR TABS (ANTI-HISTAMINE) Indications:Osmin rgic rhinitis, cause unspecified 1 tablet daily 3 [...] (11/16/2014): Epic Allergic rhinitis 09/06/2001 Overview (11/16/2014): flonase and Zyrtec Epic Premenstrual tension syndrome 09/06/2001 Overview (11/16/2014): Epic Hypothyroidism 09/03/2001 Overview (11/16/2014): levothyroxin .200mg QD Epic Excessive or frequent menstruation 09/03/2001 Overview (12/23/2002): controlled on narcisa Immunizations Immunization Administration Dates Next Due Flu Vac (3+ [...] alcohol) 1-2 glasses of wine per night Comments No Sex and Gender Information Value Date Recorded Sex Assigned at Not on file Legal Sex Female 4:08 AM CDT Gender Identity Not on file Sexual Orientation Not on file Occupation Industry Job Start Date Job End Date professor Not on file Not on file Not on file Last Filed Vital Signs Vital Sign Reading Time Taken Comments Blood Pressure 130/70 03/20/2011 9:24 AM DRIP MOLDER Pulse 74 03/20/2011 9:24 AM DRIP MOLDER Temperature 36.9 C (98.4 F) 03/20/2011 9:24 AM DRIP MOLDER Respiratory Rate 16 11/12/2010 1:28 PM CDT Oxygen Saturation 100% 03/22/2010 4:04 PM DRIP MOLDER Inhaled Oxygen Concentration - - Weight 116.1 [...] 12/28/2018 12/28/2017, 11/16, 11/21/2015, Additional history exists Pneumococcal 50+ Yrs (2 of 2 - PCV) 01/05/2019 01/05/2018 DTaP/Tdap/Td (2 - Tdap) 07/30/2020 07/30/2010, 12/23 COVID-19 Vaccine (3 - season) 2023 06/01/2020, [...] on patient's age to complete this topic Meningococcal B Aged Out No longer el igible based on patient's age to complete this topic Medical Devices Implanted Type Area Merchandising Intern Device Identifier Shelf Expiration Date Model / Serial / Lot Wire Maryse .045 - [id number] Implant[facility] Left: FOOT [employer] 71-102 / / K-Wire Thrd 9in .045 - [id number] Implanted:Qty: 1 on 04/28/2007 at [facility] DEVICE Left: FOOT [email or web address] [id number] / / Procedures Procedure Name Priority Date/Time Associated Diagnosis Comments MM MAMMOGRAM SCREENING BILAT W CAD Routine 12/28/2017 4:11 PM DRIP MOLDER PAP TEST, ROUTINE Routine 07/30/2010 1:2 0 PM CDT Screening for malignant neoplasm of the cervix LIPID PANEL & DIRECT LDL (IF NEEDED) Routine 08/07/2009 8:39 AM CDT Screening Cholesterol Level COLONOSCOPY Routine 01/27/2008 9:35 AM DRIP MOLDER Screen for Colon Cancer HEPATITIS C ANTIBODY, WITH REFLEX Routine 02/03/2001 10:08 AM DRIP MOLDER from Last 3 Months or Most Recently Relevant to Health Maintenance Results * MM Mammogram Screening Bilat W CAD (12/28/2017 4:11 PM DRIP MOLDER) Anatomical Region Laterality Modality Breast Bilateral Mammography Impressions 12/29/2017 2:41 PM DRIP MOLDER : ACR BI-RADS Category 1: Negative RECOMMENDATION: Follow Up Imaging in 12 months - Bilateral The results and recommendations of this examination will be communicated to the patient. Narrative 12/29/2017 2:41 PM DRIP MOLDER MM MAMMOGRAM SCREENING BILAT W CAD performed on 12/28/17 Compared to: 11/28/2016 MM Mammogram Screening Bilat W CAD, 11/21/2015 MM Mammogram Screening Bilat W CAD, and 11/01/2014 MAMMOGRAM SCREENING BILATERAL FINDINGS: Bilateral screening mammogram was performed with the assistance of Computer-Aided Detection. The breasts have scattered areas of fibroglandular density. There is no radiographic evidence of malignancy. us Rani Faulkner MD RAD SAGAR Final Resu lt * PAP TEST, ROUTINE (07/30/2010 1:20 PM CDT) Cytology, Pap (NOTE) Area Coordinator Cytology Report Patient Name: DHARMESH TURNER Taken: 07/30/2010 Received: 07/31/2010 Reported: 08/09/2010 Physician(s): DOMITILA ASHBY ([id number]) Source of Specimen Liquid routine Pap, cervical/endocervi pauline: Specimen Adequacy Satisfactory for evaluation. Endocervical component absent. Final Cytologic Interpretation/Res ult NEGATIVE FOR INTRAEPITHELIAL LESION OR MALIGNANCY (NILM) Other Cytologic Findings Inflammation Electronically Signed Out By Dalila LOMAX(ASCP) Dalila Galeas CT(ASCP) Pap Smear History Date of Last Menstrual Period: 07/05/10 Microscopic Description Microscopic examination is performed. [employer] 07/30/2010 1:20 PM CDT 07/31/2010 9:58 AM CDT us Domitila Ashby CLINICAL PHARMACY SPECIALIST, COTTON PICKING MACHINE OPERATOR LAB_1 Fin al Result [employer] [address], [place] [address] * (ABNORMAL) LIPID PANEL AND DIRECT LDL(IF NEEDED) (08/07/2009 8:39 AM CDT) Cholesterol 201(H) 0 - 199 mg/dl [facility] Triglyceride 62 0 - 149 mg/dl [facility] HDL 64 >40 mg/dl [facility] LDL, Calc. 123 0 - 129 mg/dl [facility] Hours Fasting 12 hours [facility] 08/07/2009 8:39 AM CDT 08/07/2009 8:50 AM CDT us Marco A Santana MD LAB_1 Final Result [facility] [address] [address] * COLONOSCOPY [[id number]] (01/27/2008 9:35 AM DRIP MOLDER) URL Link [facility] ([facility]) 01/27/2008 9:35 AM DRIP MOLDER Narrative [facility]) - 01/27/2008 10:39 AM DRIP MOLDER Indications: Average risk colon CA screen: Colon [...] V76.51, Special screening for malignant neoplasms, colon CPT 2007 [employer]. All Rights Reserved. No fee schedules, basic units, relative values or related listings are included in CPT. A does not directly or indirectly practice medicine or dispense medical services. AMA assumes no liability for data contained or not contained herein. CPT is a registered trademark of the [employer]. The codes documented in this report are preliminary and upon continuous churn buttermaker review may be revised to meet current [...] V76.51, Special screening for malignant neoplasms, colon CPT 2007 [employer]. All Rights Reserved. No fee schedules, basic units, relative values or related listings are included in CPT. AMA does not directly or indirectly practice medicine or dispense medical services. AMA assumes no liability for data contained or not contained herein. CPT is a registered trademark of the [employer]. The codes documented in this report are preliminary and upon continuous churn buttermaker review may be revised to meet current compliance requirements. Attending Participation: Natan Lamas MD Signed Date: 01/27/2008 10:39 AM Number of Addenda: 0 Note initiated on 01/27/2008 9:36 AM Natan Lamas Jr., MD DIGESTIVE CARE Final R esult Performing Organization Address [facility] Co de Phone Number [facility] [place], [place] * HEPATITIS C AB (02/03/2001 10:08 AM DRIP MOLDER) Anti-HCV Negative Does Not Rule Out Infection with HCV NEG [facility] 02/03/2001 10:0 8 AM DRIP MOLDER 02/03/2001 10:09 AM DRIP MOLDER Jaki Bautista MD LAB_1 Final Result Performing Organization Address [facility] Co de [facility] Number [facility] [address] [address] from Last 3 Months or Most Recently Relevant to Health Maintenance Insurance [employer] SELF INSURED SELF INSURED Advance Directives * Full Code (Latest Code Status on File) Date Activated Date Inactivated Comments 09/26/2009 11:02 AM 09/26/2009 2:57 PM Care Teams Software Design Engineer Relationship Specialty Start Date End Date Rani Faulkner MD [address] [place] [address] PCP - General Internal Medicine 11/28/16
--- OUTSIDE RECORDS SUMMARY | 2024-04-11 06:37 | XMS_ITS | Clinical Summary ---
Author Organization [facility] Address [address] [place] [address] Care Team Providers Care Commodities Trader Name Role Phone Elsewhere, Pcp Primary Care Provider Unavailabl e Source Comments Patient records contain information from all sites at [facility]. For routine questions regarding patient records, call [phone] during business hours, M-F 8:00 AM - 5:00 PM Central Time. Record requests for emergency care only can be directed to [phone] at any time.[facility] Allergies Active Allergy Reactions Criticality Noted Date Comments Cat Dander Other (see comments) 08/24/2020 Runny nose Grass Pollen Headache,Wheezing (R eselect Reaction) 08/24/2020 Mold Other (see comments) 08/24/2020 Runny nose Tree And Shrub Pollen Headache,Wheezing (Reselect Reaction) 08/24/2020 Medications albuterol 90 mcg/actuation inhaler Inhale 2-4 puffs [...] mg by mouth at bedtime. 05/25/2020 Active phentermine-top iramate (Qsymia) 15-92 mg capsule, ER multiphase 24 hr ER capsuleIndicati ons:Obesity Body Mass Index 30-39.9 Adult Take 1 capsule by mouth daily before morning meal. 30 capsule 5 10/20/2023 Active Active Problems Problem Noted Date Diagnosed Date Obesity Body Mass Index 30-39.9 Adult 08/27/2020 Hypothyroidism Primary 08/27/2020 Osteoarthritis 08/27/2020 Asthma Mild Intermittent 08/27/2020 Asthma Family History Medical History Relation Name Comments [...] Father Natan Turner Diabetes Maternal Grandfather Karma Oetting Arthritis Maternal Grandmother Mayra Oetting Colon cancer Maternal Grandmother Mayra Oetting diagno sed in her 80s Diabetes Maternal Grandmother Mayra Oetting Obesity Maternal Grandmother Mayra Oetting Colon polyps Mother Florina Turner Hyperlipidemia Mother Florina Turner Hypertension Mother Florina Turner Breast cancer Mother's Sister 1 Lavernne Kruckaberg di agnosed in her 80s Breast cancer Mother's Sister 2 Dayana Waldemar diagnose d in her 50s Diabetes Paternal Grandfather Paxton Hujohn Obesity Paternal Grandfather Paxton Turner Arthritis Sister Terri Paco Breast cancer Sister Terri Paco diagnosis & lumpectomy 2020 Colon polyps Sister Terri Paco Hyperlipidemia Sister Terri Paco Hypertension Sister Terri Paco Thyroid disease Sister Terri Paco Hypothyroi dism Relation Name Status Comments Brother Abdirahman Turner Father Natan Turner Maternal Grandfather Karma Oetting Maternal Grandmother Mayra Oetting Mother Florina Solimanener Mother's Sister 1 Lavernne Kruckaberg Mother's Sister 2 Dayana Waldemar Paternal Grandfather Paxton Huener Sister Terri Antonio Social History Tobacco Use Types Packs/Day Years Used Date Smoking Tobacco: Never Smokeless Tobacco: Never Tobacco Cessation:Counseling Given: Not Answered Comments:one parent was a smoker Alcohol Use Standard Drinks/Week Comments Yes 12 (1 standard drink = 0.6 oz pu re alcohol) [facility] Utilities Answer Date Recorded In the past 12 months has e electric, gas, oil, or water [employer] threatened to shut off services in your [...] often do you attend chur ch or sabianism services? More than 4 times per year 06/21/2022 Do you belong to any clubs o r organizations such as tenriism groups, unions, fraternal or athletic groups, or [...] and heating? Not hard at all 06/21/2022 [facility] [place] [facility] Occupat ional Health - Occupational Stress [...] highest degree you have received? Doctorate 08/23/2020 Comments Unknown Sex and Gender Information Value Date Recorded Sex Assigned at Female 01/01/2021 8:40 AM MIDDLE SCHOOL BASEBALL COACH Legal Sex Female 12:27 PM CDT Gender Identity Female 01/01/2021 8:40 AM MIDDLE SCHOOL BASEBALL COACH Sexual Orientation Straight 01/01/2021 8: 40 AM MIDDLE SCHOOL BASEBALL COACH Last Filed Vital Signs Vital Sign Reading Time Taken Comments Blood Pressure 133/83 03/05/2023 10:59 AM MIDDLE SCHOOL BASEBALL COACH Pulse 74 03/05/2023 10:59 AM MIDDLE SCHOOL BASEBALL COACH Temperature - - Respiratory Rate - - Oxygen Saturation - - Inhaled Oxygen Concentration - - Weight 85.7 kg (189 lb) 10/20/2023 4:03 PM CDT Height 169.5 cm (5' 6.73) 10/20/2023 4:03 PM CD T Body Mass Index 29.84 10/20/2023 4:03 PM CDT Plan of Treatment Upcoming Encounters Date Type Department Care Team (Late st Contact Info) Description 05/02/2024 3:00 PM CDT Office Visit Division of Endocrinology in [place], [place] [address] [place] [phone] Cooper Kessler APRN, C.N.P., D.N.P. [address] [place] [phone] Health Maintenance Due Date Last Done Comments Bone Density Scan (Osteoporosis Screen) 1957 CT Colonography 1957 Cologuard 1957 Colonoscopy 1957 Colorectal Cancer Screening 1957 FIT 1957 Fasting Glucose for Diabetes Screening 1955 Hepatitis C Screening 1955 Thyroid Stimulating Hormone (TSH) test for thyroid function 1955 Mammogram 12/28/2018 12/28/2017, 12/17, 11/28/2016, Additional history exists COVID-19 Vaccine ( season) 2023 07/10/2023, 02/04/2023, 08/01/2022, Additional history exists Influenza Vaccine (#1) 2023 , 12/11/2021, 12/27/2020, Additional history exists Depression Screening (Annual PHQ-2) 02/17/2024 Fall Risk Screen (Annual) 02/17/2024 DTaP,Tdap,and Td Vaccines (3 - Td or Tdap) 02/19/2031 02/19/2021, 07/30/2010, 12/23/2002 Cervical/Vaginal Cancer Screening Discontinued 02/01/2018, 07/30/2010 Zoster Vaccines Completed 08/21/2018, 05/13/2018 RSV vaccine - (32-36 weeks) or 60+ years Completed 01/29/2023 Pneumococcal vaccine (50+ years) Completed 02/12/2023, 01/05/2018 IPV Vaccines Aged Out No longer eligi ble based on patient's age to complete this topic Medical Devices Implanted Type Area Staff Development Coordinator Rn Device Identifier Shelf Expiration Date Model / Serial / Lot Hardware E.G. Pins/Screws/Ro ds Hardware e.g. pins/screws/ rods Bilatera l: Foot Description:Hardware Knee Implant-06/17/19 18 Implanted:0 02/2017 (Quantity not on file) Knee Implant Left: Knee Ocular (Eye) Implant Ocular (Eye) Implant Bilatera l: Eye Description:Completed 1 week apart - February 2021 Insurance [facility] Care Teams Commodities Trader Relationship Specialty Start Date End Date Elsewhere, Pcp PCP - General Internal Medicine 04/16/21
--- OUTSIDE RECORDS SUMMARY | 2024-04-11 06:37 | XMS_ITS | Encounter Summary ---
Author Organization [facility] Address [address] [place] [id number] Care Team Providers Care Dispatcher Service Name Role Phone Elsewhere, Pcp Primary Care Provider Unavailabl e Reason for Referral * Outpatient (Routine) - Closed Specialty Diagnoses / Procedures Referred By Contdinh t Referred To Contact Diagnoses Pain Ankle Procedures DX Foot Ankle Left 3+ Views Arsenio Goldstein III, M.D. [address] [place] [phone] Phone: tel: fax: [facility] Referral ID Status Reason Start Date Expiration Date Visits Re quested Visits Authorized [id number] Closed 11/16/2023 11/15/2024 1 1 Encounter Details Date Type Department Care Team (Late st Contact Info) Description 11/16/2023 Orders Only Department of Orthopedic Surgery in [place], [place] [address] [place] [phone] Victor Kennedy, MD [place] [facility] Social History Tobacco Use Types Packs/Day Years Used Date Smoking Tobacco: Never Smokeless Tobacco: Never Comments:one parent was a sm oker Alcohol Use Standard Drinks/Week Comments Yes 12 (1 standard drink = 0.6 oz pu re alcohol) [facility] Utilities Answer Date Recorded In the past 12 months has e electric, gas, oil, or water company [...] often do you attend chur ch or zoroastrianism services? More than 4 times per year 06/21/2022 Do you belong to any clubs o r organizations such as zoroastrian groups, unions, fraternal or athletic groups, or [...] and heating? Not hard at all 06/21/2022 [facility] [place] of Occupat ional Health - Occupational Stress [...] your living situation today? I have a [facility] place to live 10/17/2023 Education Answer Date Recorded What is the highest level of school you have completed or the highest degree you have received? Doctorate 08/23/2020 Comments Unknown Sex and Gender Information Value Date Recorded Sex Assigned at Female 01/01/2021 8:40 AM TESTING MANAGER Legal Sex Female 12:27 PM CDT Gender Identity Female 01/01/2021 8:40 AM TESTING MANAGER Sexual Orientation Straight 01/01/2021 8: 40 AM TESTING MANAGER documented as of this encounter Plan of Treatment Upcoming Encounters Date Type Department Care Team (Late st Contact Info) Description 05/02/2024 3:00 PM CDT Office Visit Division of Endocrinology in [place], [place] [address] [place] [phone] Cooper Kessler APRN, C.N.P., D.N.P. [address] [place] [phone] documented as of this encounter Results * DX Foot Ankle Left 3+ Views (11/30/2023 8:35 AM CDT) Anatomical Region Laterality Modality Lower Extremity, Foot, Ankle , Musculoskeletal RST LOS, Musculoskeletal ARZ LOS, Muskuloskeletal FLA LOS Left Digit al Radiography Impressions 11/30/2023 8:49 AM CDT Postoperative changes in the left 1st and 2nd distal metatarsals. 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 Mild to moderate degenerative arthritis elsewhere, including changes at the TMT joints. Hypertrophic changes subtalar joint. Plantar calcaneal spur. Pes planus and hindfoot valgus. Narrative 11/30/2023 8:49 AM CDT EXAM: DX FOOT ANKLE LEFT 3+ VIEWS Procedure Note Codie Prieto M.D. - 11/30/2023 EXAM: DX FOOT ANKLE LEFT 3+ VIEWS IMPRESSION: Postoperative changes in the left 1st and 2nd distal metatarsals. Advancedleft tibiotalar degenerative arthritis with talar tilt. Mild to moderatedegenerative arthritis elsewhere, including changes at the TMT joints.Hypertrophic changes subtalar joint. Plantar calcaneal spur. Pes planus and hindfoot valgus. Arsenio Goldstein III, M.D. IMG DIAGNOSTIC IMAGING PROCEDURES Final Result documented in this encounter Visit Diagnoses Diagnosis Pain Ankle Pain Ankle documented in this encounter Care Teams Dispatcher Service Relationship Specialty Start Date End Date Elsewhere, Pcp PCP - General Internal Medicine 04/16/21 documented as of this encounter
[2024-04-11] MEDS: ETHYL CHLORIDE 1 APPLICATION 1 APPLIC TOPICAL (06:55)
[2024-04-11] MEDS: LIDOCAINE 1%-EPI 1:100,000 20 ML INFILTRATI (06:55)
[2024-04-11] MEDS: BUPIVACAINE 0.5% 30 ML INJECTION (06:55)
--- NOTE | 2024-04-11 07:23 | SUR.OPER ---
PATIENT QUESTIONS ANSWERED SATISFACTORILY PREOPERATIVELY. PATIENT BROUGHT TO OR #2 PER WHEELCHAIR. Patient positioned supine on OR #2 bed. The perioperative team supported arms bilaterally on arm boards. Final approval of positioning by surgeon.
[2024-04-11] MEDS: BACITRACIN OINTMENT BULK TUBE 1 APPLIC TOPICAL (07:31)
--- NOTE | 2024-04-11 08:01 | P.ORPRC_ITS ---
Procedure Note Date of procedure: 04/11/24 Procedure: PREOPERATIVE DIAGNOSIS: 1. Left carpal tunnel syndrome POSTOPERATIVE DIAGNOSIS: 1. Left carpal tunnel syndrome PROCEDURE: 1. Left open carpal tunnel release SURGEON: Agustín Lopez MD. DREDGE WORKER: CJ Velez ANESTHESIA: Local anesthetic (50:50 mixture of 2% lidocaine with epi and 0.5% marcaine plain) - 8ml total IMPLANTS: None EBL: 2 mL TOURNIQUET: None COMPLICATIONS: None evident INDICATIONS: The patient is a pleasant 68-year-old female who has experienced left hand numbess/tingling affecting the radial 3.5 digits for multiple months. It has progressively gotten worse. Nonoperative management has been tried and failed, and therefore surgery was recommended. DESCRIPTION OF PROCEDURE: Following a thorough discussion of risks, benefits, and alternatives consent was obtained and the operative extremity was marked. The patient was brought to the operating room and placed supine on the operating table. Local anesthesia induction was undertaken in preop holding. No antibiotics were administered as this was planned to be a local case only. Proper time-out was performed identifying proper patient, site, and procedure. The operative extremity was prepped and draped in the appropriate sterile fashion using ChloraPrep. An incision was made in line with the radial border of the ring finger beginning 1 cm distal to the distal wrist crease and progressing for another 2.5cm distal. Caution was taken to stay proximal to Parrish's cardinal line. Sharp incision through the skin, subcutaneous tissue, and palmar fascia was performed. The thenar musculature was bluntly elevated off the transverse carpal ligament. The ligament was directly visualized, and divided sharply with a 15 blade. This was released from its most proximal to the most distal extent. Metzenbaum scissor was also utilized to release the fascia extension proximally. We confirmed complete release of the transverse carpal ligament. Closure was performed with 4-O nylon in interrupted fashion. Soft dressings were applied, and the patient was transferred to the recovery room in stable condition. PLAN: 1. Encourage elevation of the operative extremity. 2. Range of motion of the fingers and hand/wrist as tolerated. 3. Ibuprofen/acetaminophen and/or oxycodone as needed for pain control. 4. Follow up with PA visit or nurse visit in 12-16 days for wound check and suture removal.
== END 2024-04-11 08:19 | disposition home or self-care (01) ==
LOC: OR 06:34
PROVIDERS: PCP Internal Medicine; Visit Provider Orthopaedic Surgery Sports Medicine
PROC: (CPT 64721; principal; 2024-04-11 07:15)
DX: G56.02 Carpal tunnel syndrome, left upper limb (principal)
CPT/HCPCS: 64721; J0665

== ENCOUNTER 2024-07-18 09:30 | Outpatient (RCR) | payer MEDICARE, SELFPAY ==
--- NOTE | 2024-04-18 12:55 | PT.OPEX ---
PT [place] Outpatient Eval PT [facility] Outpatient Eval Start: 04/18/24 07:50 Freq: Status: Active Protocol: Document 04/18/24 07:52 ENM (Rec: 04/18/24 11:10 ENM [id number]) E-signed By ROSEMARY DodsonT Physical Therapy Outpatient Evaluation Insurance Information Recert Due Date 07/17/24 Insurance Name Medicare B Medical Diagnosis primary osteoarthritis, left ankle and foot Treating Diagnosis left ankle pain, impaired gait , impaired balance, decreased ankle ROM, muscle weakness Referring MD Jessica Subjective Subjective Patient presents to PT for complaint of left ankle pain. They have osteoarthritis in their whole body which is becoming more acute lately. Was told they were going to likely need an ankle fusion. Was told to wait until the pain is worse before getting the surgery done. It is now changing the mechanics of everything she does. It is a grinding soreness sensation that makes her avoid things or feel hesitant. Tries to walk 30 mins. Has had to stop lap swimming because of the decreased ankle ROM. Feels out of sorts on her right side now after all of this. Would like to do the stairs without a railing. Did PT for her knee in the past which helped prolong the need for a replacement and would like to do this for the ankle. Does well with having guidance for exercising. Has started wearing an ankle brace in the last couple of months with walking. PMHx: left knee replacement, recent carpal tunnel surgery When it started: years ago Describes it as: grinding soreness, but avoids significant pains Timing: stays about the same Location: difficult to localize on the left side Irritability: mod Severity: mild-mod Pain Comments rarely more than a 1-2/10 easing: icing, naproxen aggravating: stairs, walking more than 3 miles (1-1.5 hour walk), standing on one leg to get dressed, resting other leg on it Current Work Status Retired Objective Other/Pertinent Objective Ankle AROM: DF: L -6 R 5 (knee bent L 0 R 8) PF: L 60 R 70 INV : L 22 R 28 EV: L 6 R 5 Knee AROM WNL hip seated figure 4 25% limited and stiff on R compared to L Strength: 5xSTS with LLE ER, RLE knee valgus, without use of arms 19s DF: L 4/5 R 4+/5 PF: needing to shift off LLE to perform INV: L 4/5 R 4+/5 EV: L 4/5 R 4+/5 Gait/balance: Patient ambulating with decreased stance time of LLE, decreased ankle DF, increased pelvis movement in the frontal plane SLS mild-mod instability on L, mild instability on R. Noted left hip drop with R SLS With stairs they need UE support on railing for stability due to limitations in ROM Assessment Assessment/Impression Patient is a 68 year old female presenting with chronic left ankle pain. Their primary complaint is of difficulty swimming, standing on one leg to get dressed, walking > 3 miles and navigating stairs due to a consistent soreness in the ankle. They have been told they will require an ankle fusion at some point but are wanting to prolong this for now. Kanika also has concerns for right hip pains that have come about as a compensation for her left ankle limitations . Upon assessment patients concordant pains brought on with ankle DF, ankle PF, standing heel raises and navigating stairs. Ankle DF is limited to 6 degs from neutral and ankle PF is limited by 10 degs compared to contralateral side. They display global left ankle weakness as seen with SLS, MMT and sit to stands. Gait impairments include decreased stance time of LLE, decreased ankle DF and increased pelvis movement in frontal plane. Kanika would greatly benefit from skilled PT to address impairments stated above in order to perform all functional mobility and recreational activities without significant discomfort or difficulty. Primary Functional Limitations stairs, walking increased distances, standing on one leg to get dressed, swimming Plan of Care Rehabilitation Potential Fair Rehabilitation Potential Comments fair-good due to chronic nature of condition Physical Therapy Goals In 8-10 visits: 1. Patient will be IND with HEP and self management of symptoms 2. Patient will improve ankle DF/PF by 10 degs to improve ROM for swimming 3. Patient will improve global left ankle strength to at least 4+/5 for increased support/stability for ambulation 4. Patient will be able to navigate the stairs with self reported improved confidence to progress toward PLOF 5. Patient will hold L SLS for at least 10s with minimal instability to improve balance for lower body dressing Coordination/Communication With Referral Source Treatment Plan/Direct Interventions Dry Needling,Electrical Stimulation,Gait Training,Heat ,Ice/Cold/Vasopneumatic,Joint Mobilization,Manual Therapy, Neuromuscular Re-ed,Self-Care/ Home Management,Therapeutic Activities,Therapeutic Exercises Frequency/Duration 1x a week for 8 weeks, as needed for 2-3 visits Patient Will Be Discharged From Therapy Completion of LTG(s), Independent w/HEP Evaluation Billing Untimed Code Treatment Minutes 33 Complexity Low Certification Information Initial Certification Date 04/18/24 Ending Certification Date 07/17/24 Provider Signature Required Yes Provider Signature Shows Agreement With POC & Medical Necessity Physician NPI Number Write NPI# Here Physician Comment/Change : Physician Signature & Date Requested Please Sign/Date Here
== END 2024-11-14 09:46 | disposition home or self-care (01) ==
PROVIDERS: PCP Internal Medicine; Visit Provider Orthopaedic Surgery Sports Medicine
DX: M19.072 Primary osteoarthritis, left ankle and foot (principal); Z51.89 Encounter for other specified aftercare
CPT/HCPCS: 97110; 97140; 97161

== ENCOUNTER 2024-09-12 09:21 | Outpatient (CLI) | payer MEDICARE, SELFPAY ==
--- NOTE | 2024-09-12 09:15 | CRLHL7_ITS ---
For Patients: As a result of the Century Cures Act, medical imaging exams and procedure reports are released immediately into your electronic medical record. You may view this report before your referring provider. If you have questions, please contact your health care provider. INDICATION: BILATERAL SCREENING MAMMOGRAM, ASYMPTOMATIC 69 Y/O FEMALE COMPARISON: 09/10/2023, 08/07/2022, 07/09/2021 TECHNIQUE: Digital mammogram in CC and MLO projections including computer-aided detection (CAD) and tomosynthesis. BREAST COMPOSITION: There are scattered areas of fibroglandular density. FINDINGS: No suspicious findings. ASSESSMENT: BI-RADS 1 Negative RECOMMENDATION: Annual screening mammogram. A lay language report of this examination will be provided to the patient. Dictated by: Toby Lopez MD @ 09/13/2024 08:24:35 (Electronically Signed)
== END 2024-09-12 09:22 | disposition home or self-care (01) ==
LOC: MAMMO 09:21
PROVIDERS: PCP Internal Medicine; Visit Provider Internal Medicine
DX: Z12.31 Encounter for screening mammogram for malignant neoplasm of breast (principal)
CPT/HCPCS: 77063; 77067